=== PATIENT | male | born 1950 | race Caucasian/White ===

== ENCOUNTER 2020-01-11 07:44 | Outpatient (CLI) | payer MEDICARE, SELFPAY ==
--- NOTE | 2020-01-20 02:50 | SLEEP_ITS ---
Split-Night Sleep Study DATE OF STUDY: 01/11/2020 ORDERING PHYSICIAN: Chu Gómez M.D. REASON FOR THE STUDY: Hypersomnia, hypertension, pulmonary hypertension. HISTORY: This patient is a 69-year-old male, 70 inches tall, weighing 200 pounds with a body mass index of 28.7. The patient does not have a family history of sleep apnea. He rarely awakens from sleep short of breath. He does not have any problems with heartburn, belching, or coughing at night. He occasionally snores loudly enough that others complain about it. He occasionally has trouble sleeping with a cold. He does not wake up gasping for breath at night. On occasion, his tells him that he has abnormal breathing at night. He does not sweat excessively at night. He rarely notices his heart pounding or beating irregularly at night. He occasionally falls asleep during the day, occasionally involuntarily. He never falls asleep while driving or with physical effort. He does not have loss of muscle tone with strong emotion nor does he have difficulty with daytime functioning due to excessive sleepiness. He does not feel paralyzed on falling asleep nor does he have vivid dreamlike scenes upon awakening or falling asleep. He is never afraid to go to sleep. He does not have nightmares. He does not remember dreams. He occasionally has racing thoughts, feelings of sadness, depression and anxiety. He occasionally has muscular tension and notices parts of his body jerking. He does not kick at night. He occasionally has crawly, achy feelings in his legs, occasionally has leg pain during the night and occasionally has morning jaw pain. He occasionally grinds his teeth during sleep. He is rarely bothered by pain during the day, never is awakened by pain at night. He occasionally wakes up in the morning feeling stiff with sore achy muscles and pain in his neck and spine. He has stomach problems, fatigue, and tremors. Normal bedtime is 9 p.m. to 9:30 p.m., taking 15 minutes to fall asleep typically waking 3 times at night for 5 minutes to go to the bathroom. He wakes in the morning between 4 and 5 am. Weekend schedule is the same. He estimates 7 hours of sleep at night. He occasionally takes a nap. A short nap may be refreshing. He feels better in the mornings and other times a day. MEDICAL COMORBIDITIES: Hypertension, coronary artery disease with a stent, seasonal allergies, asthma, heartburn, kidney stones, hyperlipidemia, pulmonary hypertension, nonrheumatic mitral valve regurgitation. MEDICATIONS: 1. Alprazolam 0.5 mg t.i.d. 2. Aspirin 81 mg a day. 3. Atorvastatin 40 mg a day. 4. Brilinta 90 mg q.12 hours. 5. Hydrochlorothiazide 25 mg half tablet daily. 6. Metoprolol-XL 100 mg daily. 7. Nitroglycerin 0.4 mg p.r.n. chest pain. 8. Potassium citrate 1 daily. 9. Pulmicort Flexhaler 180 mcg 2 puffs b.i.d. HABITS: Quit tobacco 7 years ago. Caffeine, 3 cups of coffee a day. No alcohol. DESCRIPTION OF THE STUDY: On the [place] Sleepiness Scale, the score is 6. This was conducted as a split-night study in the lab using the [employer] multiple channel system including EOG, EEG, submental EMG, EKG, nasal and oral airflow using thermistors and nasal pressure sensors, chest and abdominal belts, body position data and pulse oximetry. The study was scored using CMS guidelines. During the baseline portion 180.3 minutes of recording time occurred. 127 minutes of sleep occurred. Sleep efficiency was 70.4%. Sleep latency was 28 minutes, on the long side. REM latency was short at 58 minute. There were 7 awakenings. The patient spent 25.3 minutes awake after sleep onset. Sleep architecture showed 5.9% stage 1 sleep, 81.1% stage 2 sleep, no stage 3 sleep, and 13% stage REM. The patient did not have
== END 2020-01-11 07:45 | disposition home or self-care (01) ==
LOC: ANHCSM 07:45
PROVIDERS: PCP Family Medicine Adolescent Medicine; Visit Provider Internal Medicine Cardiovascular Disease
DX: G47.31 Primary central sleep apnea (principal); G47.10 Hypersomnia, unspecified; I25.10 Atherosclerotic heart disease of native coronary artery without angina pectoris; I10 Essential (primary) hypertension; I27.20 Pulmonary hypertension, unspecified; N20.0 Calculus of kidney; J45.909 Unspecified asthma, uncomplicated; F41.9 Anxiety disorder, unspecified; K21.9 Gastro-esophageal reflux disease without esophagitis
CPT/HCPCS: 95811

== ENCOUNTER 2020-01-24 14:39 | Outpatient (CLI) | payer MEDICARE, SELFPAY ==
--- NOTE | 2020-02-05 16:39 | SLEEP_ITS ---
BiPAP titration. DATE OF STUDY: 01/24/2020 ORDERING PHYSICIAN: Chu Gómez M.D. REASON FOR THIS STUDY: Prior sleep study, 01/11/2020 showing a split night protocol with evidence of severe central sleep apnea, G47.31 with an apnea-hypopnea index of 51, insufficiently titrated. HISTORY: This patient is a 69-year-old male, 70 inches tall, weighing 200 pounds with a body mass index of 28.7. On January 11, 2020, his split night study showed evidence of severe sleep-disordered breathing with an AHI of 51, primarily due to central apneas. He was titrated, but only reached 10/6 as far as BiPAP. He needed a higher pressure. He did not sleep at all until he was on a CPAP of 9 cm. The patient is now returning to complete the titration. MEDICAL COMORBIDITIES: Hypertension, coronary artery disease with a stent, seasonal allergies, asthma, heartburn, kidney stones, hyperlipidemia, pulmonary hypertension, nonrheumatic mitral valve regurgitation. MEDICATIONS: 1. Alprazolam. 2. Aspirin. 3. Atorvastatin. 4. Brilinta. 5. Hydrochlorothiazide. 6. Metoprolol-XL. 7. Nitroglycerin sublingual. 8. Potassium citrate. 9. Pulmicort Flexhaler. HABITS: Quit tobacco 7 years ago. Caffeine, 3 cups of coffee a day. No alcohol. DESCRIPTION OF THE STUDY: On the [place] Sleepiness Scale, the score is 6. This was conducted as a full night BiPAP titration using the [employer] multiple channel system including EOG, EEG, submental EMG, EKG, nasal and oral airflow using thermistors and nasal pressure sensors, chest and abdominal belts, body position data and pulse oximetry. This study was scored using CMS guidelines. The duration was 375.4 minutes. Sleep time was 229.5 minutes. Sleep efficiency was 61.1%. Sleep latency was 31.2 minutes, which is prolonged. REM latency was 115.5 minutes. He had 13 awakenings. The patient spent exactly 1/3rd of the study awake after sleep onset 144.7 minutes. Sleep architecture showed 4.1% stage 1 sleep, 46.6% stage 2 sleep, no stage 3 sleep and 16% stage REM. The patient spent only 1.6% of this study supine. The remainder was non-supine. He had 2 good solid REM episodes. Sleep at the beginning of the study was a bit fragmented. The apnea-hypopnea index was 11.8. The obstructive index is 8.1 and the central index is 3.7. The lowest desaturation is 86%. The patient spent 1.8 minutes below 88%, which was 0.5% of the study. He had 42 desaturations of 4% or greater for an index of 6.7. The mean saturation was 96%. AROUSALS: 28 arousals for an index of 4.5. He had 4 apneas for an index of 0.6, 1 hypopnea for an index of 0.2, 23 spontaneous for an index of 3.7. LIMB MOVEMENTS: No limb movements on this study. EKG: Sinus bradycardia mean heart rate 46.5. During this titration, the patient wore a medium Wendy View full face mask. He started at 13/9 cm of water pressure with heated humidity was titrated up to 17/13. The apnea-hypopnea index remained elevated between 67 and 82 extremely high. The patient was then switched to ASV. The optimal pressure appears to be ASV pressure of 8 of EPAP, minimal pressure support of 3 cm and maximal pressure support of 15 cm. At this setting, the patient spent 32 minutes in bed without REM. The apnea-hypopnea index was 0. The sleep efficiency was 100%. At the next higher level, EPAP 9, minimal pressure support of 2 and maximal pressure support of 15. The apnea-hypopnea index was still 0, but the sleep efficiency was much lower. However, he did have 37 minutes of REM. IMPRESSION: 1. This BiPAP ASV titration shows an optimum pressure of ASV, 9 EPAP, 3 cm PS minimum, and 15 cm CA maximum. At this setting, the sleep efficiency was low at 43%. However, the patient did have 37
== END 2020-01-24 14:40 | disposition home or self-care (01) ==
LOC: ANHCSM 14:40
PROVIDERS: PCP Family Medicine Adolescent Medicine; Visit Provider Internal Medicine Cardiovascular Disease
DX: G47.31 Primary central sleep apnea (principal)
CPT/HCPCS: 95811

== ENCOUNTER → 2021-01-20 03:07 | Outpatient (CLI) | payer MEDICARE, SELFPAY ==
[2021-01-20 21:05] LABS: SARS-CoV-2 RNA PCR Negative
== END ==
PROVIDERS: PCP Family Medicine Adolescent Medicine; Visit Provider Internal Medicine Cardiovascular Disease
DX: Z01.812 Encounter for preprocedural laboratory examination (principal); Z20.822 Contact with and (suspected) exposure to COVID-19
CPT/HCPCS: C9803; U0003; U0005

== ENCOUNTER 2021-01-23 00:53 | Day surgery (SDC) | payer MEDICARE, SELFPAY ==
[2021-01-22 10:55] VITALS: BMI 29.5
[2021-01-23] VITALS (8 sets, daily range): BP systolic 104–130; BP diastolic 68–99; PULSE 47–55; RESP 10–19; TEMP 36.2–36.5; O2SAT 98–100; BMI 28.8
[2021-01-23 07:36] LABS: Basophils Absolute Auto 0.1 K/mm3 (0.0-0.1); Basophils Percent Auto 0.9 % (0.2-1.2); Eosinophils Absolute Auto 0.1 K/mm3 (0-0.3); Eosinophils Percent Auto 1.5 % (0-4.4); Hematocrit 47.7 % (42.0-52.0); Hemoglobin 16.1 g/dL (14.0-18.0); Immature Granulocyte Absolute 0.07 K/mm3 (0.00-0.031); Immature Granulocyte Percent A 1.1 % (0-0.5); Lymphocytes Absolute Auto 1.25 K/mm3 (0.9-3.2); Lymphocytes Percent Auto 18.8 % (18.3-44.2); Mean Corpuscular HGB Conc 33.8 g/dl (32-36); Mean Corpuscular Hemoglobin 33.8 pg (26-34); Mean Platelet Volume 9.6 fl (7.4-10.4); Monocytes Absolute Auto 0.7 K/mm3 (0.1-0.6); Monocytes Percent Auto 10.8 % (2.6-8.5); Neutrophils Absolute Auto 4.5 K/mm3 (1.3-6.7); Neutrophils Percent Auto 66.9 % (45.5-73.1); Platelet Count Result 162 k/mm3 (150-375); Red Blood Count 4.77 M/mm3 (4.6-6.20); Red Cell Distribution Width 12.8 % (11.5-14.5); White Blood Count 6.7 K/mm3 (4.5-10.0)
[2021-01-23 07:47] LABS: INR 1.1; Prothrombin Time 14.9 Seconds (11.1-14.7)
[2021-01-23 08:11] LABS: Anion Gap 5 mmol/L (8-16); Blood Urea Nitrogen 15 mg/dL (9-20); Calcium 9.2 mg/dL (8.4-10.2); Carbon Dioxide 28 mmol/L (22-30); Chloride 107 mmol/L (98-107); Estimated CRCL calculation 68 ml/min; Estimated Glomerular Filt Rate > 60; Glucose 94 mg/dL (75-110); Potassium 4.3 mmol/L (3.4-5.0); Sodium 140 mmol/L (137-145)
--- NOTE | 2021-01-23 10:09 | WPDHPUPDATE1 ---
History and Physical Update Update Date/Time: 01/23/21 0900am History and Physical has been reviewed, including an updated exam of the patient. There are NO changes in the patient's condition. Risks, benefits, and alternatives have been discussed and questions answered. Patient agrees to proceed with procedure.
--- NOTE | 2021-01-23 10:09 | WPDMODSED ---
Moderate Sedation Note-Pt Data Patient Data Allergies Allergy/AdvReac Type Severity Reaction Status Date / Time ciprofloxacin Allergy Intermediate ITCHEY Verified 04/19/20 08:41 SKIN, GI UPSET budesonide [From Symbicort] Allergy Hypertensio Verified 04/19/20 08:41 n formoterol [From Symbicort] Allergy Hypertensio Verified 04/19/20 08:41 n propranolol [From Inderal LA] Allergy Confusion Verified 04/19/20 08:41 Quinazolinones Allergy Rash Verified 04/19/20 08:41 Home Medications Medication Instructions Recorded Confirmed Type Pulmicort Flexhaler 2 inh INHALATION QAM 09/13/19 01/22/21 History albuterol sulfate [Ventolin HFA] 1 puff INHALATION QID PRN 09/13/19 01/22/21 History alprazolam [Xanax] 0.5 mg PO BID 09/13/19 01/23/21 History aspirin 81 mg PO DAILY 09/13/19 01/23/21 History potassium citrate [Urocit-K 10] 1,080 mg PO ONCE 09/13/19 01/22/21 History atorvastatin 40 mg PO DAILY #30 tablet 09/14/19 01/22/21 Rx nitroglycerin [Nitrostat] 0.4 mg SUBLINGUAL Q5MIN PRN #25 09/14/19 01/22/21 Rx tablet clopidogrel 75 mg PO DAILY 01/22/21 01/23/21 History fluticasone propionate [Flonase] 1 spray INTRANASAL DAILY 01/22/21 01/22/21 History furosemide 20 mg PO DAILY 01/22/21 01/22/21 History metoprolol succinate 25 mg PO DAILY 01/22/21 01/22/21 History Current Medications: Active Medications Sodium Chloride (Normal Saline Iv) 500 mls @ 100 mls/hr IV CONT .Q5H NEIL Sedation/Anesthesia: No previous sedation/anesthesia problems (including family history). [facility] Past Medical History Medical History Central sleep apnea Coronary artery disease H/O renal calculi with removal 2012 Hypertension Injury of right hand 2006, severe injury Pulmonary hypertension Rhinitis Unspecified asthma Surgical History Surgical History H/O left inguinal hernia repair 2011 S/P appy 196 S/P left knee arthroscopy 2009 Stented coronary artery proximal LAD Sep 14, 2019 Family History Family History Mother , age 87, good health No problems noted. Social History Social History Smoking status: Former smoker Tobacco type: cigarettes Second hand tobacco smoke exposure: Yes Smoking end date: 11/08/11 Alcohol intake: never Substance use: never Substance use type: does not use Living arrangements: with family Gender identity (if verbalized by the patient): Male Spiritual care concerns: No Agree to blood products: No Mod Sed Physical Exam Physical Exam Pre Procedural Exam: Normal: Appearance, Eyes, Ears, Nose, Neck, Throat, Airway, Lungs, Heart Size, Heart Rate, Heart Rhythm, Neuro Exam, Abdomen, Liver, Kidneys, Spleen, Breasts, Genitalia, Extremities and Skin Hours since solid foods: 8 Hours since liquid intake: 8 Internal Medicine - PN: Obj Da Vital Signs Vital Signs: Vital Signs - 24 hr 01/23/21 07:27 Temperature 36.2 C L Pulse Rate 48 L Respiratory Rate 10 L Blood Pressure 130/87 Pulse Oximetry 100 Meds/Results Medications: Active Medications Generic Name Dose Route Start Last Admin Trade Name Freq PRN Reason Stop Dose Admin Sodium Chloride 500 mls @ 100 mls/hr 01/22/21 11:05 Normal Saline Iv IV CONT .Q5H NEIL Labs CBC & Chem 7: 01/23/21 07:16 01/23/21 07:47 Labs: Laboratory Results - last 24 hr 01/23/21 01/23/21 01/23/21 07:16 07:16 07:47 WBC 6.7 RBC 4.77 Hgb 16.1 Hct 47.7 MCV 100.0 MCH 33.8 MCHC 33.8 RDW 12.8 Plt Count 162 MPV 9.6 Immature Gran % (Auto) 1.1 H Neut % (Auto) 66.9 Lymph % (Auto) 18.8 [place] % (Auto) 10.8 H Eos % (Auto) 1.5 Baso % (Auto) 0.9 Lymph # (Auto) 1.25 [place] # (Auto) 0.7 H Eos # (Auto) 0.1 Baso
--- NOTE | 2021-01-23 10:10 | WPDCARDPROC ---
Cardiac Cath Procedure Note Date of procedure:: 01/23/21 Performing physician:: Brady Becerra MD Date of service 01/23/2021 Indication:: exertion shortness of breath Brief clinical history:: 70-year-old patient who mid LAD stent, sleep apnea, COPD, hyper lipidemia who was referred for right and left heart catheterization because of progressive dyspnea on exertion. Procedure Procedure performed:: 1-Moderate sedation that started at 9:32 a.m.and ended at 10:05 a.m. with a total duration 33 minutesusing 4mg of Versed and 75mcg fentanyl. The registered nurse was melinda lyons. 2-Selective left and right coronary angiogram. 3-Left heart catheterization with measurement of LVEDP and measurement of gradient across aortic valve. 4-Heart catheterization measurement of oxygen saturations, pressures. 5-Right common femoral arterial angiogram. 6-Deployment of 6 [place] Angio-Seal. Sedation/Medication given:: Moderate sedation. Access site:: Right common femoral artery. Estimated blood loss:: 10cc Procedure note:: After informed consent patient was brought in to systems testing laboratory technician with the was draped and prepped in usual manner. Moderate sedation was given and the right groin was infiltrated using 1% lidocaine. Five [place] sheath was obtained using micropuncture needle and the modified Seldinger technique. Huong 7 [place] sheath was inserted in the right common femoral vein using micropuncture needle and modified Seldinger technique. Right heart catheterization was advancement of [place] catheter in the right right atrium, right ventricle, pulmonary artery and wedge pressure measurement with measurement of oxygen saturation. Selective left coronary angiogram was done using JL4 catheter with the tip of the catheter placed in the left main coronary artery. Selective right coronary angiogram was done using JR4 catheter with the tip of the catheter placed to the right coronary artery. After that 5 [place] pigtail catheter was advanced across the aortic valve into the left ventricle with measurement of LVEDP and measurement of gradient across aortic valve. Right common femoral arterial angiogram was done. Findings:: 1- left coronary artery is a large artery that divides into large LAD, large circumflex artery. Left main Has minimal calcification and minimal irregularities. 2- left anterior descending artery is a large artery that runs and wraps around the apex. has diffuse minimal calcification proximally and then proximally diffuse 30% stenosis. The stent in the mid segment is patent without any restenosis. large diagonal 1 branch that has diffuse 30% stenosis with calcification. 3- leftcircumflex artery is a large artery. It has minimal irregularities and minimal calcification proximally. OM1 is large and has proximal 20%. 4- right coronary artery is Large artery and has minimal irregularities 5- LVEDP was 15 mm Hg and no gradient across aortic valve. 6- opening arterial pressure was 140/80and closing pressure was 120/70 7- right femoral artery angiogram shows no significant disease in the right common femoral artery. 8- right heart catheterization findings: - right atrial pressure was 10 - right ventricular pressure was 45/12 - pulmonary artery was 45/18 with a mean of 25 - pulmonary artery capillary wedge pressure was 17 - pulmonary artery oxygen saturation 62% - right atrial oxygen saturation 69.5% - Juan Antonio cardiac output 4.76 and the index was 2.27 - we were unable to obtain thermodilution cardiac outputs due to technical issues in the systems testing laboratory technician. - pulmonary vascular resistance 2.56 wood units - systemic vascular resistance 16.4 wood units Conclusion:: - patent stent in the LAD. - nonocclusive CAD. - Mild pulmonary hypertension. normal LVEDP. - Assessment and Plan Additional Plan - continue aggressive risk factor modification for CAD. - look for other reasons for the shortness of breath like COPD.
--- NOTE | 2021-01-23 13:33 | SUR.PHASEII ---
Pt. and spouse given discharge education following cardiac cath. procedure. Pt. and spouse verbalize understanding of discharge education. R groin site dressing remains clean, dry, and intact upon discharge. Pt. escorted to vehicle via wheelchair. No change in pt. condition upon departure.
== END 2021-01-23 13:35 | disposition home or self-care (01) ==
PROVIDERS: PCP Family Medicine Adolescent Medicine; Visit Provider Internal Medicine Cardiovascular Disease
PROC: 4A023N8 Measurement of Cardiac Sampling and Pressure, Bilateral, Percutaneous Approach (ICD-10-PCS; CPT 93453; principal; 2021-01-23 08:45)
DX: I25.10 Atherosclerotic heart disease of native coronary artery without angina pectoris (principal); I27.20 Pulmonary hypertension, unspecified; Z95.5 Presence of coronary angioplasty implant and graft; R06.02 Shortness of breath; J44.9 Chronic obstructive pulmonary disease, unspecified; G47.30 Sleep apnea, unspecified; E78.5 Hyperlipidemia, unspecified; Z79.82 Long term (current) use of aspirin; Z79.51 Long term (current) use of inhaled steroids; Z87.891 Personal history of nicotine dependence
CPT/HCPCS: 36415; 80048; 85025; 85610; 93460; C1760; C1887; C1894; G0269; J1644; J2250; J3010; J7040

== ENCOUNTER → 2023-07-20 09:48 | Outpatient (CLI) | payer MEDICARE, SELFPAY ==
--- NOTE | ~2023-07-20 | XR_ITS ---
EXAM: XR abdomen/kub 1V DATE: 07/20/2023 10:36 HISTORY: Personal history of urinary calculi . COMPARISON: None available. FINDINGS: Clear lung bases. Normal bowel gas pattern. No organomegaly. Irregular calcifications proj ect over the lateral renal shadows. New rounded calcifications projecting over the right upper quadra nt, may reflect gallstones or renal stones. Surgical kyle over the left inguinal region. Atheroscl erotic calcifications. Degenerative changes in the lumbar spine. Stable pelvic phleboliths. IMPRESSION: New right upper quadrant calcifications, may represent new gallstones or new renal stones . Otherwise stable bilateral nephrolithiasis. Reviewed, dictated and finalized at location K. IMPRESSION: New right upper quadrant calcifications, may represent new gallston es or new renal stones. Otherwise stable bilateral nephrolithiasis.
== END ==
PROVIDERS: PCP Urology; Visit Provider Urology
DX: Z87.442 Personal history of urinary calculi (principal)
CPT/HCPCS: 74018

== ENCOUNTER → 2023-07-27 08:35 | Outpatient (CLI) | payer MEDICARE, SELFPAY ==
--- NOTE | ~2023-07-27 | CT_ITS ---
EXAMINATION: CT abdomen pelvis wo con DATE: 07/27/2023 08:48 INDICATION: Calculus of the kidney TECHNIQUE: Computed tomography (CT) of the abdomen and pelvis was performed without intravenous contr ast. The dose-length product (DLP) was 430.36 mGy-cm. Automated exposure control and iterative recons truction technique were employed. COMPARISON: 02/08/2013 FINDINGS: The lung bases are clear. The heart size is normal. Cysts of the liver measure up to 8 mm i n the left hepatic lobe. Punctate calcifications in an otherwise normal spleen likely represent heale d granulomatous disease. The pancreas, gallbladder, and adrenal glands are normal. There are five non obstructing stones of the right kidney. The largest measures 1.6 cm in the upper pole. There is a 2.1 cm cyst of the right kidney. There are five nonobstructing stones of the left kidney. The largest me asures 1.0 cm in the lower pole. There are no stones in the ureters or bladder. No hydronephrosis or hydroureter. There is calcified atherosclerosis of the aorta and many of the other arteries. No patho logically enlarged abdominal or pelvic lymph nodes are identified. There are changes of left inguinal hernia repair. There is moderate lumbar spondylosis. IMPRESSION: 1. Bilateral nonobstructing nephrolithiasis. Reviewed, dictated and finalized at location L.
== END ==
PROVIDERS: PCP Family Medicine Adolescent Medicine; Visit Provider Urology
DX: N20.0 Calculus of kidney (principal)
CPT/HCPCS: 74176

== ENCOUNTER 2023-08-04 08:12 | Outpatient (CLI) | payer MEDICARE, SELFPAY ==
--- NOTE | 2023-08-04 08:20 | ECG_ITS ---
Measurements Intervals [place] Rate: 54 P: 45 [place]: 139 QRS: 6 QRSD: 90 T: -1 QT: 414 QTc: 396 Interpretive Statements SINUS BRADYCARDIA BORDERLINE ST-T WAVE ABNORMALITY- INFERIOR LEADS BORDERLINE ECG COMPARED TO ECG 09/14/2019 12:26:33 NO SIGNIFICANT CHANGES Electronically Signed On 08-04-2023 8:42:59 CDT by Jed Bridges D.O.
[2023-08-04 08:53] LABS: INR 1.1; Partial Thromboplastin Time 27.3 SECONDS (22.3-36.8); Prothrombin Time 14.1 Seconds (11.1-14.7)
[2023-08-04 08:54] LABS: Anion Gap 8 mmol/L (8-16); Blood Urea Nitrogen 10 mg/dL (9-20); Calcium 9.2 mg/dL (8.4-10.2); Carbon Dioxide 30 mmol/L (22-30); Chloride 102 mmol/L (98-107); Estimated Glomerular Filt Rate > 60; Glucose 98 mg/dL (65-110); Potassium 4.7 mmol/L (3.4-5.0); Sodium 140 mmol/L (137-145)
== END 2023-08-04 08:13 | disposition home or self-care (01) ==
LOC: ANHSURGERY 08:16
PROVIDERS: Anesthesiology; PCP Family Medicine Adolescent Medicine; Visit Provider Urology
DX: N20.0 Calculus of kidney (principal); E78.00 Pure hypercholesterolemia, unspecified; I10 Essential (primary) hypertension; Z01.818 Encounter for other preprocedural examination
CPT/HCPCS: 36415; 80048; 85610; 85730; 87086; 93005

== ENCOUNTER 2023-08-13 00:59 | Day surgery (SDC) | payer MEDICARE, SELFPAY ==
--- NOTE | 2023-08-02 15:35 | PC.NURSE ---
Addendum entered by Sona Bang RN 08/02/23 15:47: PT STATES HOLD ASPIRIN PER DR ROLLE 7 DAYS PRE OP.LAST DOSE 08/05/23 Original Note: Report to the Outpatient Waiting Room, entrance under the green pavilion located off [facility], at time _0800 on date __08/13/23 . Planned Procedure Time: ___1000 . Time changes happen often and if your time is changed the preop area will call you the afternoon before. - You and your visitor will be asked to self-screen and do not enter if you have any COVID symptoms. - A mask is optional within the hospital at this time. Patients may have clear liquids (water, carbonated beverages, clear teas, apple juice) until 3 hours prior to surgery with a maximum of 20 ounces. - No food from midnight until time of surgery - Infants may have breast milk until 4 hours before surgery, formula 6 hours prior to surgery. - Children will be allowed to drink immediately following surgery. If applicable, please bring a bottle or sippy cup to assist with drinking. Juice, water, soda, and popsicles are readily available. For infants on formula, please bring formula the day of surgery. Pacifiers are allowed. Take the following medications with a SIP of water the morning of surgery: ___ALPRAZOLAM,INHALER DO NOT STOP ANY OF YOUR OTHER PRESCRIPTION MEDICATIONS PRIOR TO SURGERY ?EXCEPT THE FOLLOWING Medications to discontinue per physician __PT STATES HOLD ASPIRIN 7 DAYS PRE OP.LAST DOSE 08/05/23 Please no make-up, nail maltese, hairspray, perfume, deodorant, or body powder the day of surgery. No jewelry (including any body piercings) or valuables the day of surgery, leave them at home. Please take a shower or bath the night before, or the morning of, surgery with an antibacterial soap. Wear comfortable, loose fitting clothing. Children are encouraged to wear pajamas. - Jewelry must be removed prior to entering the operating room. Rings and piercings that are not removed may be cut off. - The hospital will not accept responsibility for valuables. - Please leave all valuables, including medications, at home the day of surgery. If you are going home after surgery, a licensed patrol driver must drive you home. - NO public transportation without another adult if you receive anesthesia. - We recommend that an adult stay with you for 24 hours following discharge. - We also recommend that you do not drive, make important decision, drink alcoholic beverages, or take any drugs that were not prescribed by your health care provider for at least 24 hours after your discharge time. For Pediatric surgeries, we recommend two adults accompany the child home. Follow any additional instructions given to you from your surgeon. If you or anyone in your household have experienced Covid symptoms in the past week, please notify your surgeon or the nurse liaison at the phone number below for possible testing. Telephone instructions given to ___PATIENT and asked if any additional questions and then verbalized understanding. Patient advised to call surgeon office or pre surgery nurse liaison [phone] if any additional questions.
[2023-08-02 15:50] VITALS: BMI 27.9
[2023-08-13] VITALS (7 sets, daily range): BP systolic 117–142; BP diastolic 74–83; PULSE 52–74; RESP 12–18; TEMP 36.3–37; O2SAT 99–100
--- NOTE | ~2023-08-13 | XR_ITS ---
Supine and upright views of the abdomen Clinical history: Lithotripsy COMPARISON: 07/20/2023 Findings: Bowel gas pattern is nonspecific. No evidence for obstruction or free air. Large right teresa l stones are stable from prior exam. Multiple smaller right renal stones are present, also essentiall y unchanged. Osseous structures are intact. Impression: Bilateral nephrolithiasis, essentially unchanged from prior exam. Reviewed, dictated and finalized at location M. Impression: Bilateral nephrolithiasis, essentially unchanged from prior exam.
--- NOTE | 2023-08-13 07:19 | WPDHPUPDATE1 ---
History and Physical Update Update Date/Time: 08/13/23 07:19 History and Physical has been reviewed, including an updated exam of the patient. There are NO changes in the patient's condition. Risks, benefits, and alternatives have been discussed and questions answered. Patient agrees to proceed with procedure.
--- NOTE | 2023-08-13 08:10 | WPDANESEPPF ---
Anes - Initial Pre Proc Eval Procedure: Operation Date: 08/13/23 10:00 Proposed Procedures p Right Renal Extracorporeal Shock Wave Lithotripsy - Isiah Nieto MD Date/Time: 08/13/23 08:10 Surgeon: Isiah Nieto MD Pre Op Diagnosis: Right Kidney Stone Patient Data Age: 72 Gender: M Height: 1.78 m Weight: 88.45 kg Allergies Allergy/AdvReac Type Severity Reaction Status Date / Time ciprofloxacin Allergy Intermediate ITCHEY Verified 08/02/23 15:22 SKIN, GI UPSET budesonide [From Symbicort] Allergy Hypertensio Verified 08/02/23 15:22 n formoterol [From Symbicort] Allergy Hypertensio Verified 08/02/23 15:22 n propranolol [From Inderal LA] Allergy Confusion Verified 08/02/23 15:22 Quinazolinones Allergy Rash Verified 08/02/23 15:22 primidone AdvReac Intermediate Confusion Verified 08/02/23 15:22 Home Medications Medication Instructions Recorded Confirmed Type aspirin 81 mg chewable tablet 81 mg PO DAILY 09/13/19 08/02/23 History potassium citrate 10 mEq (1,080 2,160 mg PO ONCE 09/13/19 08/02/23 History mg) tablet,extended release (Urocit-K 10) nitroglycerin 0.4 mg sublingual 0.4 mg sublingual Q5MIN PRN Chest 09/14/19 08/02/23 Rx tablet (Nitrostat) Pain #25 tabs fluticasone propionate 50 1 spray intranasal DAILY 01/22/21 08/02/23 History mcg/actuation nasal spray,suspension albuterol sulfate 90 mcg/actuation 2 puff inhalation QID PRN 11/12/22 08/02/23 Rx aerosol inhaler (Ventolin HFA) Shortness Of Breath #8.5 grams atorvastatin 40 mg tablet 40 mg PO DAILY #90 tabs 11/12/22 08/02/23 Rx budesonide 180 mcg/actuation 2 inh inhalation BID #1 ea 11/12/22 08/02/23 Rx breath activated powder inhaler (Pulmicort Flexhaler) furosemide 40 mg tablet 40 mg PO QAM #90 tabs 11/12/22 08/02/23 Rx alprazolam 0.5 mg tablet (Xanax) 0.5 mg PO BID #180 tabs 05/12/23 08/02/23 Rx amoxicillin 500 mg capsule 500 mg PO Q8H #6 caps 08/03/23 Rx Patient hx anesthesia problems: none Family hx anesthesia problems: none Results Review: All pre-operative results and documents have been reviewed as part of the pre-operative evaluation. [facility] Past Medical History Medical History Central sleep apnea Coronary artery disease H/O renal calculi with removal 2012 Hypertension Injury of right hand 2006, severe injury Normal colonoscopy 2015 Pulmonary hypertension Rhinitis Unspecified asthma Surgical History Surgical History H/O left inguinal hernia repair 2011 S/P appy 1960 S/P left knee arthroscopy 2009 Stented coronary artery proximal LAD Sep 14, 2019 Family History Family History Mother , age 87, good health No problems noted. Grandparent Acute myocardial infarction Heart disease Grandparent Acute myocardial infarction Heart disease Other Asthma Social History Social History Smoking packs per day: 1 Smoking cigarettes per day: 20.0 Years smoked: 20 Smoking pack-years: 20.00 Smoking status: Former smoker Tobacco type: cigarettes Second hand tobacco smoke exposure: Yes Smoking end date: 11/08/11 Alcohol intake: never Substance use: never Substance use type: does not use Lack of Transportation: No Lack of Food: Never True Current Housing: I Have Housing Concerned About Future Housing: No Difficulty Paying Gas/Electric Bills: No Difficulty Paying for Meds: No Currently Unemployed: No Education: Trade/Vocational Certificate Difficulty w/ Childcare or Family Care: No Living arrangements: with family Occupation/Education: retired Gender identity (if verbalized by the patient): Male Spiritual care concerns: No Agree to blood products: Yes Anes - Eval Final PreProc
[2023-08-13] MEDS: ceFAZolin 2 GM/D5W 50 ML 2 GM/50 ML BAG IVPB (09:40)
--- NOTE | 2023-08-13 10:12 | W.PM.PROC2 ---
Procedure Note - Detailed Date of Procedure 08/13/23 Pre-op Diagnosis Right Kidney Stones Post-op Diagnosis Same Procedure Performed Right ESWL Surgeon Isiah Nieto MD Anesthesia General Description of Procedure The patient was brought to the operative suite where he was placed in the supine position on the Dornier lithotripsy table. The focal point of the lithotripter was placed first at a 8-9mm right upper pole calculus calculus. A total of 2500 shocks were delivered at a power setting of 4. There was decent fragmentation of that stone but not until late in the procedure so opted not to treat the 2nd stone in kidney. The patient tolerated the procedure well and was taken to the recovery room in good condition. Drains No Packing No Pathology None sent Complications No immediate complications Disposition PACU
[2023-08-13] MEDS: LACTATED RINGERS 1,000 ML 30 ML IV CONT (10:19)
== END 2023-08-13 11:45 | disposition home or self-care (01) ==
PROVIDERS: PCP Family Medicine Adolescent Medicine; Visit Provider Urology
PROC: (CPT 50590; principal; 2023-08-13 10:00)
DX: N20.0 Calculus of kidney (principal); I10 Essential (primary) hypertension; E78.00 Pure hypercholesterolemia, unspecified; G47.31 Primary central sleep apnea; J45.909 Unspecified asthma, uncomplicated; N41.1 Chronic prostatitis; I25.10 Atherosclerotic heart disease of native coronary artery without angina pectoris; N40.1 Benign prostatic hyperplasia with lower urinary tract symptoms; Z87.442 Personal history of urinary calculi; Z87.891 Personal history of nicotine dependence; Z79.82 Long term (current) use of aspirin; Z79.51 Long term (current) use of inhaled steroids
CPT/HCPCS: 50590; 74018; J0690; J1100; J2405; J2704; J7120

== ENCOUNTER 2023-08-25 07:01 | Outpatient (CLI) | payer MEDICARE, SELFPAY ==
--- NOTE | ~2023-08-25 | XR_ITS ---
Supine and upright views of the abdomen Clinical history: Renal stone COMPARISON: 08/13/2023 Findings: Bowel gas pattern is nonspecific. No evidence for obstruction or free air. Multiple of teresa l stones are essentially stable from prior exam. 17 mm right mid to lower pole renal stone is similar to prior exam. Previously seen stone at the right renal pelvis region is apparently decreased in siz e, with a 8 mm nodule stone present. No definite ureteral stones seen. Osseous structures are intact. Impression: Bilateral nephrolithiasis, as detailed above. Largest stone seen previously in the right renal pelvis is decreased, with smaller residual stone present. Reviewed, dictated and finalized at location . Impression: Bilateral nephrolithiasis, as detailed above. Largest stone seen previously in the right renal pelvis is decreased, with smaller residual stone present.
== END 2023-08-25 07:02 | disposition home or self-care (01) ==
PROVIDERS: PCP Family Medicine Adolescent Medicine; Visit Provider Urology
DX: N20.0 Calculus of kidney (principal)
CPT/HCPCS: 74018

== ENCOUNTER 2023-08-30 12:57 | Outpatient (CLI) | payer MEDICARE, SELFPAY ==
[2023-08-30 13:28] LABS: Partial Thromboplastin Time 26.4 SECONDS (22.3-36.8)
== END 2023-08-30 12:58 | disposition home or self-care (01) ==
LOC: ANHSURGERY 13:01
PROVIDERS: PCP Family Medicine Adolescent Medicine; Visit Provider Urology
DX: N20.0 Calculus of kidney (principal); Z01.818 Encounter for other preprocedural examination
CPT/HCPCS: 36415; 85610; 85730; 87086

== ENCOUNTER 2023-09-03 01:37 | Day surgery (SDC) | payer MEDICARE, SELFPAY ==
[2023-08-30 11:10] VITALS: BMI 26.9
--- NOTE | 2023-08-30 11:21 | PC.NURSE ---
PRE-OP INSTRUCTIONS, PLEASE READ CAREFULLY Report to the Outpatient Waiting Room, entrance under the green pavilion located off [facility], at time _0730_ on date _09/03/23_. Planned Procedure Time: _0930_. Time changes happen often and if your time is changed the preop area will call you the afternoon before. - You and your visitor will be asked to self-screen and do not enter if you have any COVID symptoms. - A mask is optional within the hospital at this time. Patients may have clear liquids (water, carbonated beverages, clear teas, apple juice) until 3 hours prior to surgery with a maximum of 20 ounces. - No food from midnight until time of surgery Take the following medications with a SIP of water the morning of surgery: _ALPRAZOLAM, PULMICORT INHALER - & ALBUTEROL INHALER, NITROGLYCERIN IF NEEDED_ DO NOT STOP ANY OF YOUR OTHER PRESCRIPTION MEDICATIONS PRIOR TO SURGERY ?EXCEPT THE FOLLOWING Medications to discontinue per physician _PT STATES STOPPING ASPIRIN 08/27/23, Date to take last dose Please no make-up, nail libyan, hairspray, perfume, deodorant, or body powder the day of surgery. No jewelry (including any body piercings) or valuables the day of surgery, leave them at home. Please take a shower or bath the night before, or the morning of, surgery with an antibacterial soap. Wear comfortable, loose fitting clothing. Children are encouraged to wear pajamas. - Jewelry must be removed prior to entering the operating room. Rings and piercings that are not removed may be cut off. - The hospital will not accept responsibility for valuables. - Please leave all valuables, including medications, at home the day of surgery. If you are going home after surgery, a licensed minibus driver must drive you home. - NO public transportation without another adult if you receive anesthesia. - We recommend that an adult stay with you for 24 hours following discharge. - We also recommend that you do not drive, make important decision, drink alcoholic beverages, or take any drugs that were not prescribed by your health care provider for at least 24 hours after your discharge time. Follow any additional instructions given to you from your surgeon. If you or anyone in your household have experienced Covid symptoms in the past week, please notify your surgeon or the nurse liaison at the phone number below for possible testing. Telephone instructions given to _PATIENT_and asked if any additional questions and then verbalized understanding. Patient advised to call surgeon office or pre surgery nurse liaison [phone] if any additional questions.
--- NOTE | 2023-09-01 10:07 | PM.HPGS ---
History of Present Illness History of Present Illness Consent: Risks, benefits, and alternatives have been discussed and questions answered. Patient agrees to proceed with procedure. Chief complaint: Rt kidney Stones Narrative: Stephane Blackburn is a 72 year old male A long history of recurrent urolithiasis who recently had lithotripsy for 2 fairly large stones in his right kidney. One of these fractured quite nicely but the other has, in part, remained intact. He presents for 2nd right ESWL. He is aware the risk including, but not limited to, adverse cardiopulmonary events, hematuria, need for additional procedures and perinephric hematoma. Review of Systems Review of Systems: All systems reviewed & are unremarkable except as noted in HPI and below PMFSH Past Medical History Medical History Central sleep apnea Coronary artery disease H/O renal calculi with removal 2012 Hypertension Injury of right hand 2006, severe injury Normal colonoscopy 2016 Pulmonary hypertension Rhinitis Unspecified asthma Surgical History Surgical History H/O left inguinal hernia repair 2011 S/P appy 1960 S/P left knee arthroscopy 2009 Stented coronary artery proximal LAD Sep 14, 2019 Family History Family History Mother , age 87, good health No problems noted. Grandparent Acute myocardial infarction Heart disease Grandparent Acute myocardial infarction Heart disease Other Asthma Social History Social History Smoking packs per day: 1 Smoking cigarettes per day: 20.0 Years smoked: 20 Smoking pack-years: 20.00 Smoking status: Former smoker Tobacco type: cigarettes Second hand tobacco smoke exposure: No Smoking end date: 11/08/11 Alcohol intake: never Substance use: never Substance use type: does not use Lack of Transportation: No Lack of Food: Never True Current Housing: I Have Housing Concerned About Future Housing: No Difficulty Paying Gas/Electric Bills: No Difficulty Paying for Meds: No Currently Unemployed: No Education: Trade/Vocational Certificate Difficulty w/ Childcare or Family Care: No Living arrangements: with family Occupation/Education: retired Gender identity (if verbalized by the patient): Male Spiritual care concerns: No Agree to blood products: Yes Meds Home Medications and Allergies Home Medications Medication Instructions Recorded Confirmed Type aspirin 81 mg chewable tablet 81 mg PO DAILY 09/13/19 08/30/23 History potassium citrate 10 mEq (1,080 2,160 mg PO ONCE 09/13/19 08/30/23 History mg) tablet,extended release (Urocit-K 10) nitroglycerin 0.4 mg sublingual 0.4 mg sublingual Q5MIN PRN Chest 09/14/19 08/30/23 Rx tablet (Nitrostat) Pain #25 tabs fluticasone propionate 50 1 spray intranasal DAILY 01/22/21 08/30/23 History mcg/actuation nasal spray,suspension albuterol sulfate 90 mcg/actuation 2 puff inhalation QID PRN 11/12/22 08/30/23 Rx aerosol inhaler (Ventolin HFA) Shortness Of Breath #8.5 grams atorvastatin 40 mg tablet 40 mg PO DAILY #90 tabs 11/12/22 08/30/23 Rx budesonide 180 mcg/actuation 2 inh inhalation BID #1 ea 11/12/22 08/30/23 Rx breath activated powder inhaler (Pulmicort Flexhaler) furosemide 40 mg tablet 40 mg PO QAM #90 tabs 11/12/22 08/30/23 Rx alprazolam 0.5 mg tablet (Xanax) 0.5 mg PO BID #180 tabs 05/12/23 08/30/23 Rx hydrocodone 5 mg-acetaminophen 325 1 - 2 tablet PO Q6H PRN pain #20 08/13/23 08/30/23 Rx mg tablet tabs Allergies Allergy/AdvReac Type Severity Reaction Status Date / Time ciprofloxacin Allergy Intermediate ITCHEY Verified 08/30/23 11:09 SKIN, GI UPSET budesonide [From Symbicort] Allergy Hypertensio Verified 08/30/23 11:09
[2023-09-03] VITALS (7 sets, daily range): BP systolic 132–145; BP diastolic 73–87; PULSE 52–82; RESP 12–18; TEMP 36.2–36.9; O2SAT 98–100
--- NOTE | ~2023-09-03 | XR_ITS ---
EXAMINATION: XR abdomen/kub 1V DATE: 09/03/2023 07:29 INDICATION: Kidney stone. TECHNIQUE: A supine view of the abdomen on 2 radiographs was obtained. COMPARISON: Abdomen radiographs 08/25/2023, CT abdomen and pelvis 07/27/2023 FINDINGS: There are no dilated loops of bowel. There are multiple stones in each kidney measuring up to 17 mm on the right. There are phleboliths in the pelvis. There are surgical clips from left inguin al hernia repair. IMPRESSION: 1. Bilateral kidney stones. Reviewed, dictated and finalized at location E. IMPRESSION: 1. Bilateral kidney stones.
--- NOTE | 2023-09-03 06:59 | WPDANESEPPF ---
Anes - Initial Pre Proc Eval Procedure: Operation Date: 09/03/23 09:30 Proposed Procedures p Right Extracorporeal Shock Wave Lithotripsy - Isiah Nieto MD Date/Time: 09/03/23 06:59 Surgeon: Isiah Nieto MD Pre Op Diagnosis: Rt kidney Stones Patient Data Age: 72 Gender: M Height: 1.78 m Weight: 85 kg Allergies Allergy/AdvReac Type Severity Reaction Status Date / Time ciprofloxacin Allergy Intermediate ITCHEY Verified 09/03/23 08:30 SKIN, GI UPSET budesonide [From Symbicort] Allergy Hypertensio Verified 09/03/23 08:30 n formoterol [From Symbicort] Allergy Hypertensio Verified 09/03/23 08:30 n propranolol [From Inderal LA] Allergy Confusion Verified 09/03/23 08:30 Quinazolinones Allergy Rash Verified 09/03/23 08:30 primidone AdvReac Intermediate Confusion Verified 09/03/23 08:30 Home Medications Medication Instructions Recorded Confirmed Type aspirin 81 mg chewable tablet 81 mg PO DAILY 09/13/19 08/30/23 History potassium citrate 10 mEq (1,080 2,160 mg PO ONCE 09/13/19 08/30/23 History mg) tablet,extended release (Urocit-K 10) nitroglycerin 0.4 mg sublingual 0.4 mg sublingual Q5MIN PRN Chest 09/14/19 08/30/23 Rx tablet (Nitrostat) Pain #25 tabs fluticasone propionate 50 1 spray intranasal DAILY 01/22/21 08/30/23 History mcg/actuation nasal spray,suspension albuterol sulfate 90 mcg/actuation 2 puff inhalation QID PRN 11/12/22 08/30/23 Rx aerosol inhaler (Ventolin HFA) Shortness Of Breath #8.5 grams atorvastatin 40 mg tablet 40 mg PO DAILY #90 tabs 11/12/22 08/30/23 Rx budesonide 180 mcg/actuation 2 inh inhalation BID #1 ea 11/12/22 08/30/23 Rx breath activated powder inhaler (Pulmicort Flexhaler) furosemide 40 mg tablet 40 mg PO QAM #90 tabs 11/12/22 08/30/23 Rx alprazolam 0.5 mg tablet (Xanax) 0.5 mg PO BID #180 tabs 05/12/23 09/03/23 Rx hydrocodone 5 mg-acetaminophen 325 1 - 2 tablet PO Q6H PRN pain #20 08/13/23 08/30/23 Rx mg tablet tabs Patient hx anesthesia problems: none Family hx anesthesia problems: none Results Review: All pre-operative results and documents have been reviewed as part of the pre-operative evaluation. [facility] Past Medical History Medical History (Updated 09/03/23 @ 06:59 by Julio Hernandez DO) Central sleep apnea Bipap Coronary artery disease H/O renal calculi with removal 2012 Hypertension Injury of right hand 2006, severe injury Normal colonoscopy 2015 Pulmonary hypertension Rhinitis Unspecified asthma Surgical History Surgical History H/O left inguinal hernia repair 2011 S/P appy 1960 S/P left knee arthroscopy 2009 Stented coronary artery proximal LAD Sep 14, 2019 Family History Family History Mother , age 87, good health No problems noted. Grandparent Acute myocardial infarction Heart disease Grandparent Acute myocardial infarction Heart disease Other Asthma Social History Social History Smoking packs per day: 1 Smoking cigarettes per day: 20.0 Years smoked: 20 Smoking pack-years: 20.00 Smoking status: Former smoker Tobacco type: cigarettes Second hand tobacco smoke exposure: No Smoking end date: 11/08/11 Alcohol intake: never Substance use: never Substance use type: does not use Lack of Transportation: No Lack of Food: Never True Current Housing: I Have Housing Concerned About Future Housing: No Difficulty Paying Gas/Electric Bills: No Difficulty Paying for Meds: No Currently Unemployed: No Education: Trade/Vocational Certificate Difficulty w/ Childcare or Family Care: No Living arrangements: with family Occupation/Education: retired Gender identity (if verbalized by the patient): Male Spiritual care concerns: No Agree to blood p
[2023-09-03] MEDS: LACTATED RINGERS 1,000 ML 30 ML IV CONT (08:29)
--- NOTE | 2023-09-03 09:22 | WPDHPUPDATE1 ---
History and Physical Update Update Date/Time: 09/03/23 09:22 History and Physical has been reviewed, including an updated exam of the patient. There are NO changes in the patient's condition. Risks, benefits, and alternatives have been discussed and questions answered. Patient agrees to proceed with procedure.
[2023-09-03] MEDS: ceFAZolin 2 GM/D5W 50 ML 2 GM/50 ML BAG IVPB (09:27)
--- NOTE | 2023-09-03 09:39 | W.PM.PROC2 ---
Procedure Note - Detailed Date of Procedure 09/03/23 Pre-op Diagnosis Rt kidney Stones Post-op Diagnosis Same Procedure Performed Right ESWL Surgeon Isiah Nieto MD Anesthesia General Description of Procedure The patient was brought to the operative suite where he was placed in the supine position on the Dornier lithotripsy table. The focal point of the lithotripter was placed at 2 stones in his right kidney. A total of 2500 shocks were delivered at a power setting of 1-5. There appeared to be good fragmentation of the stone. The patient tolerated the procedure well and was taken to the recovery room in good condition. Drains No Packing No Pathology None sent Complications No immediate complications
[2023-09-03] MEDS: fentaNYL CITRATE INJ (*CRX) 100 MCG/2 ML VIAL 25 MCG IV PUSH ×6 (10:24→10:41)
[2023-09-03] MEDS: oxyCODONE HCL (*CRX) 5 MG TAB IR PO (11:35)
== END 2023-09-03 11:51 | disposition home or self-care (01) ==
PROVIDERS: PCP Family Medicine Adolescent Medicine; Visit Provider Urology
PROC: (CPT 50590; principal; 2023-09-03 09:30)
DX: N20.0 Calculus of kidney (principal); G47.31 Primary central sleep apnea; I10 Essential (primary) hypertension; I25.10 Atherosclerotic heart disease of native coronary artery without angina pectoris; J45.909 Unspecified asthma, uncomplicated; I27.20 Pulmonary hypertension, unspecified; Z79.82 Long term (current) use of aspirin; Z79.51 Long term (current) use of inhaled steroids; Z79.891 Long term (current) use of opiate analgesic; Z95.5 Presence of coronary angioplasty implant and graft; Z87.891 Personal history of nicotine dependence
CPT/HCPCS: 50590; 74018; A9270; J0690; J1100; J2405; J2704; J3010; J7120

== ENCOUNTER 2023-09-16 06:59 | Outpatient (CLI) | payer MEDICARE, SELFPAY ==
--- NOTE | ~2023-09-16 | XR_ITS ---
EXAMINATION: XR abdomen/kub 1V INDICATION: Calculus of the kidney TECHNIQUE: Supine views of the abdomen were obtained on 2 radiographs. COMPARISON: 09/03/2023 FINDINGS: A previously described 17 mm stone of the right mid kidney is no longer evident, consistent with interval lithotripsy. There are stone fragments in the kidney which measure up to 11 mm. Stones measuring 5 mm and 3 mm are present in the upper and lower poles of the right kidney, respectively. There are stable stones measuring 3 mm 8 mm in the upper and lower poles of left kidney, respectively . No stones are identified along the expected courses of the ureters or in the urinary bladder. There are phleboliths of the pelvis. A moderate volume of colonic stool is present. IMPRESSION: 1. Interval fragmentation of the previously described right kidney stone, consistent with lithotripsy change. Bilateral nephrolithiasis. 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 Interval fragmentation of the previously described right kidney stone, consi stent with lithotripsy change. Bilateral nephrolithiasis.
== END 2023-09-16 07:00 | disposition home or self-care (01) ==
PROVIDERS: PCP Family Medicine Adolescent Medicine; Visit Provider Urology
DX: N20.0 Calculus of kidney (principal)
CPT/HCPCS: 74018

== ENCOUNTER 2024-01-31 07:15 | Outpatient (CLI) | payer MEDICARE, SELFPAY ==
--- NOTE | ~2024-01-31 | XR_ITS ---
XR abdomen/kub 1V 01/31/2024 07:40 Indication: Renal stones Procedure: KUB Comparison: 09/16/2023 Findings: Stable bilateral nephrolithiasis. There are pelvic phleboliths unchanged. There are surgica l changes suggesting prior left inguinal hernia repair. There is atherosclerosis. Bowel pattern nonob structive. Moderate colonic fecal loading. Impression: 1: Bilateral nephrolithiasis unchanged. Reviewed, dictated and finalized at location B. Impression: 1: Bilateral nephrolithiasis unchanged.
== END 2024-01-31 07:16 | disposition home or self-care (01) ==
LOC: ANHIMG 07:18
PROVIDERS: PCP Family Medicine Adolescent Medicine; Visit Provider Urology
DX: N20.0 Calculus of kidney (principal)
CPT/HCPCS: 74018

== ENCOUNTER 2024-03-21 09:23 | Outpatient (CLI) | payer MEDICARE, SELFPAY ==
--- NOTE | ~2024-03-21 | US_ITS ---
EXAMINATION: US carotid duplex BI DATE: 03/21/2024 10:28 INDICATION: Left carotid bruit TECHNIQUE: Grayscale, color Doppler, and pulsed Doppler images of the cervical carotid arteries were obtained. The degree of vessel stenosis is placed in one of the following categories: normal, <50%, 5 0-69%, >=70% but less than near-occlusion, near-occlusion, or total occlusion. Note that percent sten osis relative to normal distal artery lumen diameter is indirectly measured from velocity measurement s as described by Angel, et al. Radiology 2003; 229:340-346. COMPARISON: None. FINDINGS: RIGHT: The right common carotid artery (CCA) peak systolic velocity (PSV) is 55 cm/s. The right internal car otid artery (ICA) PSV is 111 cm/s. The right ICA end-diastolic velocity (EDV) is 40 cm/s. The right I CA/CCA PSV ratio is 2.0. Grayscale and color Doppler images yield an estimate of <50% diameter reduct ion from plaque in the ICA. The external carotid artery (ECA) PSV is 111 cm/s. There is antegrade albin w in the right vertebral artery. LEFT: The left CCA PSV is 84 cm/s. The left ICA PSV is 85 cm/s. The left ICA EDV is 31 cm/s. The left ICA/C CA PSV ratio is 1.0. Grayscale and color Doppler images yield an estimate of <50% diameter reduction from plaque in the ICA. The ECA PSV is 83 cm/s. There is antegrade flow in the left vertebral artery. IMPRESSION: 1. <50% stenosis in the right internal carotid artery. 2. <50% stenosis in the left internal carotid artery. Reviewed, dictated and finalized at location B.
== END 2024-03-21 09:24 | disposition home or self-care (01) ==
LOC: ANHIMG 09:25
PROVIDERS: PCP Family Medicine Adolescent Medicine; Visit Provider Internal Medicine Cardiovascular Disease
DX: I65.23 Occlusion and stenosis of bilateral carotid arteries (principal)
CPT/HCPCS: 93880

== ENCOUNTER 2024-09-30 13:27 | Outpatient (CLI) | payer MEDICARE, SELFPAY ==
--- NOTE | ~2024-09-30 | MR_ITS ---
EXAMINATION: MR lumbar spine wo con DATE: 09/30/2024 15:32 INDICATION: Sciatica, right-sided. TECHNIQUE: Magnetic resonance imaging (MRI) of the lumbar spine was performed without intravenous con trast. Sequences included sagittal T2-weighted FSE, sagittal T2-weighted FS FSE, sagittal T1-weighted FSE, and axial T2-weighted FSE. COMPARISON: None FINDINGS: There is 3 degrees levocurvature of lumbar spine. There is 3 mm retrolisthesis of L2 on L3 and 9 mm anterolisthesis of L4 on L5. Vertebral body heights are normal. There is mildly decreased di sc height at L3-L4 and moderately decreased disc height at L4-L5. The distal spinal cord signal inten sity is normal. The conus medullaris is at L1. The following disc levels are specifically discussed: L1-L2: The disc is bulging. There is severe right and moderate left facet joint osteoarthritis. There is moderate right and mild left neural foraminal stenosis. There is mild central canal stenosis. L2-L3: The disc is bulging and has an annular fissure. There is mild bilateral facet joint osteoarthr itis. There is mild right and moderate left neural foraminal stenosis. There is mild central canal st enosis. L3-L4: The disc is bulging and has an annular fissure. There is severe bilateral facet joint osteoart hritis. There is a 6 mm synovial cyst of right facet joint in the epidural space. There is moderate r ight and mild left neural foraminal stenosis. There is moderate central canal stenosis. There is mauricio re stenosis of right lateral recess. L4-L5: The disc does not extend beyond the endplate margin. There is severe bilateral facet joint ost eoarthritis. There is mild bilateral neural foraminal stenosis. There is mild central canal stenosis. There is severe stenosis of right lateral recess and moderate stenosis of left lateral recess. L5-S1: The disc is bulging. There is mild right and moderate left facet joint osteoarthritis. There i s mild bilateral neural foraminal stenosis. There is mild central canal stenosis. IMPRESSION: 1. Moderate lumbar spondylosis. Reviewed, dictated and finalized at location A. 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
== END 2024-09-30 13:28 | disposition home or self-care (01) ==
PROVIDERS: PCP Family Medicine Adolescent Medicine; Visit Provider Family Medicine Adolescent Medicine
DX: M54.31 Sciatica, right side (principal); M43.06 Spondylolysis, lumbar region
CPT/HCPCS: 72148

== ENCOUNTER 2024-12-15 10:55 | Outpatient (CLI) | payer MEDICARE, SELFPAY ==
--- NOTE | ~2024-12-15 | XR_ITS ---
EXAMINATION: XR lumbar spine min 4V DATE: 12/15/2024 11:44 INDICATION: Spondylosis without myelopathy or radiculopathy. TECHNIQUE: 4 views of lumbar spine including flexion and extension and standing views were obtained. COMPARISON: None. FINDINGS: There is 9 degrees levocurvature of lumbar spine. There is 10 mm anterolisthesis of L4 on L 5. There is 3 mm anterolisthesis of L3 on L4. The spine is hypomobile with flexion and extension. Joe tebral body heights are normal. There is mildly decreased disc height at L3-L4 and moderately decreas ed disc height at L4-L5. There is multilevel facet joint osteoarthritis, severe in lower lumbar spine . IMPRESSION: 1. Moderate lumbar spondylosis. Reviewed, dictated and finalized at location A. IDENTIAL INVESTIGATOR
--- NOTE | ~2024-12-15 | XR_ITS ---
EXAMINATION: XR scoliosis survey DATE: 12/15/2024 11:44 INDICATION: Spondylosis without myelopathy or radiculopathy. TECHNIQUE: Anteroposterior and lateral views of the entire spine standing were obtained. COMPARISON: None. FINDINGS: Right femoral head stands 1.5 cm higher than the left. There are 12 pairs of ribs. L5 is a transitional segment. There is 4 degrees dextrocurvature from T2 to T12 and 9 degrees levocurvature f rom T12 to L4. There is 3 mm anterolisthesis of L3 on L4 and 10 mm anterolisthesis of L4 on L5. There is severe cervical spondylosis, mild thoracic spondylosis, moderate lumbar spondylosis. IMPRESSION: 1. Right femoral head stands 1.5 cm higher than the left. 2. 4 degrees dextrocurvature from T2 to T12 and 9 degrees levocurvature from T12 to L4. Reviewed, dictated and finalized at location A. ICS TECHNICIAN IMPRESSION: 1. Right femoral head stands 1.5 cm higher than the left. 2. 4 degrees dextrocurvature from T2 to T12 and 9 degrees levocurvature from T1 2 to L4.
--- OUTSIDE RECORDS SUMMARY | 2024-12-15 11:41 | XMS_ITS | Clinical Summary ---
Author Organization [facility] Address [address] [place] [address] Care Team Providers Care Systems Technologist Name Role Phone Unavailable Primary Care Provider Unavailabl e Social History Tobacco Use Types Packs/Day Years Used Date Smoking Tobacco: Smoker, Current Status Unknown Sex and Gender Information Value Date Recorded Sex Assigned at Not on file Legal Sex Male 10:11 PM CDT Gender Identity Not on file Sexual Orientation Not on file Last Filed Vital Signs Vital Sign Reading Time Taken Comments Blood Pressure 150/84 05/29/2013 7:35 AM CDT lef t Pulse 54 05/29/2013 7:34 AM CDT Regul ar Temperature - - Respiratory Rate - - Oxygen Saturation - - Inhaled Oxygen Concentration - - Weight 90.3 kg (199 lb) 05/29/2013 7:34 AM CDT Height 177.8 cm (5' 10 ) 05/29/2013 7:34 AM CDT Body Mass Index 28.55 05/29/2013 7:34 AM CDT Plan of Treatment Health Maintenance Due Date Last Done Comments Colorectal Cancer Screening Colonoscopy (10 Years) 1949 Hepatitis C 1967 DTaP, Tdap and Td Vaccines ( 1 - Tdap) 1968 Zoster Vaccines (1 of 2) 1999 Pneumococcal Vaccine: 65+ Ye ars (1 of 1 - PCV) 2014 COVID-19 Vaccine ( - 2023-2 5 season) 2024 Influenza Adult (#1) 2024 RSV Immunization or 60+ Years (1 - 1-dose 75+ series) 2024 Meningococcal B Vaccine Aged Out No l onger eligible based on patient's age to complete this topic Meningococcal Vaccine Aged Out No jaron velia eligible based on patient's age to complete this topic RSV Immunizations Under 20 Months Aged Out No longer eligible based on patient's age to complete this topic
--- OUTSIDE RECORDS SUMMARY | 2024-12-15 11:41 | XMS_ITS | Patient Health Summary ---
Author Organization [facility] Address [address] [place] [address] Care Team Providers Care Brake Machine Operator Name Role Phone Brian Viveros MD Primary Care Provider + Note from [facility],non-owned Affiliates and Associated Physician Practices is amultiple site organization consisting of ambulatory clinics and hospital sitesin [place], [place], [place] and [place]. This disclosure is being madepursuant to the Care Everywhere program and may not contain all information available regarding this patient. Last updated 18.[facility] Social History Tobacco Use Types Packs/Day Years Used Date Smoking Tobacco: Every Day Cigarettes Alcohol Use Standard Drinks/Week Comments No 0 (1 standard drink = 0.6 oz pur e alcohol) Sex and Gender Information Value Date Recorded Sex Assigned at Not on file Gender Identity Not on file Sexual Orientation Not on file Care Teams Brake Machine Operator Relationship Specialty Start Date End Date Brian Viveros MD [address] [address] PCP - General 12/15/12
--- OUTSIDE RECORDS SUMMARY | 2024-12-15 11:41 | XMS_ITS | Referral Summary ---
Author Organization [facility] Address [address] [place] [address] Care Team Providers Care Shank Boner Name Role Phone Brian Viveros MD Primary Care Provider + Source Comments [facility],non-owned Affiliates and Associated Physician Practices is amultiple site organization consisting of ambulatory clinics and hospital sitesin [place], [place], [place] and [place]. This disclosure is being madepursuant to the Care Everywhere program and may not contain all information available regarding this patient. Last updated 18.[facility] Social History Tobacco Use Types Packs/Day Years Used Date Smoking Tobacco: Every Day Cigarettes Alcohol Use Standard Drinks/Week Comments No 0 (1 standard drink = 0.6 oz pur e alcohol) Sex and Gender Information Value Date Recorded Sex Assigned at Not on file Gender Identity Not on file Sexual Orientation Not on file Plan of Treatment Not on file Care Teams Shank Boner Relationship Specialty Start Date End Date Brian Viveros MD [address] [address] PCP - General 12/15/12
--- OUTSIDE RECORDS SUMMARY | 2024-12-15 11:41 | XMS_ITS | Clinical Summary ---
Author Organization [facility] Address [address] [place] [address] Care Team Providers Care Automobile Body Customizer Name Role Phone Brian Viveros MD Primary Care Provider + Source Comments [facility],non-owned Affiliates and Associated Physician Practices is amultiple site organization consisting of ambulatory clinics and hospital sitesin [place], [place] and [place]. This disclosure is being madepursuant to the Care Everywhere program and may not contain all information available regarding this patient. Last updated 18.[facility] Social History Tobacco Use Types Packs/Day Years Used Date Smoking Tobacco: Every Day Cigarettes Alcohol Use Standard Drinks/Week Comments No 0 (1 standard drink = 0.6 oz pur e alcohol) Sex and Gender Information Value Date Recorded Sex Assigned at Not on file Gender Identity Not on file Sexual Orientation Not on file Plan of Treatment Health Maintenance Due Date Last Done Comments COLOGUARD (AGES 45-75) - COL ON CA SCREENING 1949 COLON MONITORING 1949 COLONOSCOPY - COLON CA SCREENING 1949 CT COLONOGRAPHY - COLON CA SCREENING 1949 Colorectal Cancer Screening 1949 FIT - COLON CA SCREENING 1949 FLEX SIG - COLON CA SCREENING 1949 LIPID TESTING 1949 HEPATITIS C SCREENING 10/13/1967 DTAP/TDAP/TD VACCINES (1 - Tdap) 1968 PNEUMOCOCCAL VACCINE 50+ (1 of 2 - PCV) 1968 ZOSTER VACCINE (1 of 2) 1999 COVID-19 VACCINE (2023-2 5 season) 2024 INFLUENZA VACCINE (#1) 2024 Respiratory Syncytial Virus (RSV) Vaccine Pt: or over 60 yrs (1 - 1-dose 75+ series) 2024 DEPRESSION SCREENING 11/08/2024 HEPATITIS B VACCINE Aged Out No longe r eligible based on patient's age to complete this topic HIB VACCINE Aged Out No longer eligi ble based on patient's age to complete this topic HPV VACCINE Aged Out No longer eligi ble based on patient's age to complete this topic MENINGOCOCCAL (Group B) VACCINE Aged Out No longer eligible based on patient's age to complete this topic MENINGOCOCCAL VACCINE Aged Out No jaron velia eligible based on patient's age to complete this topic Care Teams Automobile Body Customizer Relationship Specialty Start Date End Date Brian Viveros MD [address] [address] PCP - General 12/15/12
--- OUTSIDE RECORDS SUMMARY | 2024-12-15 11:41 | XMS_ITS | Clinical Summary ---
Author Organization [facility] [address] Address [address] [place] [address] Care Team Providers Care Machine Erector Name Role Phone Brian Viveros MD Primary Care Prov ider Allergies Active Allergy Reactions Criticality Noted Date Comments Propranolol Other (See comments) Low 09/07/2019 Confusion Quinazolinones Rash Medium 09/07/2019 Budesonide-Formoterol Other (See comments) Low 08/10 Hypertension Medications ALPRAZolam (XANAX) 0.5 mg tablet Take 1 tablet (0.5 mg total) by mouth 2 (two) times a day 5 9 Active potassium citrate ER (UROCIT-K) 10 mEq (1,080 mg) CR tablet 2 TABS BY MOUTH DAILY 12 9 Active aspirin 81 mg enteric coated tablet Take 1 tablet (81 mg total) by mouth daily 30 tablet 11 9 Active fluticasone propionate (FLONASE) 50 mcg/actuation nasal spray Administer 1 spray into each nostril daily Active Ventolin HFA 90 mcg/actuation inhaler Inhale 2 puffs every 4 (four) hours as needed for wheezing 1 Inhaler 10 1 Active atorvastatin (LIPITOR) 40 mg tabletIndicatio ns:Coronary artery disease involving [place] coronary artery of [place] heart without angina pectoris Take 1 tablet (40 mg total) by mouth daily 90 tablet 3 3 Active nitroglycerin (NITROSTAT) 0.[address] 1 tablet (0.4 mg total) under the tongue every 5 (five) minutes as needed for chest pain 25 tablet 3 3 Active furosemide (LASIX) 40 mg tablet Take 1 tablet (40 mg total) by mouth daily 90 tablet 3 3 Active predniSONE (DELTASONE) 10 mg tablet 4 Active Active Problems Problem Noted Date Diagnosed Date Left carotid bruit 03/08/2024 LEONCIO (obstructive sleep apnea) 01/18/2020 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/29/2019 Presence of stent in coronary artery 09/29/2019 Essential hypertension 09/11/2019 Pulmonary hypertension 09/11/2019 Nonrheumatic mitral valve regurgitation 09/11/20 19 Asthma 09/11/2019 PRESCOTT (dyspnea on exertion) 09/11/2019 PVC (premature ventricular contraction) 09/11/20 19 Snoring 09/11/2019 Hypersomnolence 09/11/2019 Tiredness 09/11/2019 Surgical History Surgery Date Site/Laterality Comments ANGIOPLASTY 2019 APPENDECTOMY 1960 CATARACT EXTRACTION 2013 HERNIA REPAIR 2010 Medical History Medical History Date Comments Hypertension Allergic rhinitis Anxiety Asthma Kidney stones Essential tremor right hand Cataract 2013 Heart disease 2019 Sleep apnea 2019 Family History Medical History Relation Name Comments Heart attack Maternal Grandfather Yan Arthritis Mother Anabelle natural causes Mother Anabelle Relation Name Status Comments Father Maternal Grandfather Yan Mother Anabelle (Age 88) Sister Alive Social History Tobacco Use Types Packs/Day Years Used Date Smoking Tobacco: Former Cigarettes 1 30 1 11/11/1981 - 09/11/2012 Smokeless Tobacco: Never Alcohol Use Standard Drinks/Week Comments Never 0 (1 standard drink = 0.6 oz pur e alcohol) AUDIT-C Answer Date Recorded Frequency of Alcohol Consumption Never 09/11/2019 Average Number of Drinks Not on file 019 Frequency of Binge Drinking Not on file 02/2019 Sex and Gender Information Value Date Recorded Sex Assigned at Not on file Legal Sex Male 6:23 PM LEASING MANAGER Gender Identity Male 02/16/2023 8:50 AM CDT Sexual Orientation Straight 02/16/2023 8: 50 AM CDT Obstetrics History Last Filed Vital Signs Vital Sign Reading Time Taken Comments Blood Pressure 130/72 09/04/2024 8:17 AM CDT Pulse 58 09/04/2024 8:17 AM CDT Temperature 36.5 C (97.7 F) 01/09/2021 10:57 AM LEASING MANAGER Respiratory Rate - - Oxygen Saturation 99% 09/04/2024 8:17 AM CDT Inhaled Oxygen Concentration - - Weight 89.4 kg (197 lb) 09/04/2024 8:17 AM CDT Height 177.8 cm (5' 10 ) 09/04/2024 8:17 AM CDT Body Mass Index 28.27 09/04/2024 8:17 AM CDT Plan of Treatment Health Maintenance Due Date Last Done Comments Colon Cancer Screening-Colonoscopy 1949 Depression Screening 1949 Fall Risk Assessment 1949 Hepatitis C Screening 1949 Pneumococcal vaccine 65+ (1 of 2 - PCV) 1955 DTaP/Tdap/Td Vaccine (1 - Tdap) 1960 Hepatitis B Screening 1967 Lung Cancer Screening 1999 Zoster Vaccine (1 of 2) 1999 Abdominal Aortic Aneurysm (A AA) Screen 2014 Well Visit 65+ 2014 Influenza Vaccine (#1) 2024 9, 08/29/2018, 08/22/2017 Insurance MEDICARE [facility] MEDICARE [facility] Care Teams Machine Erector Relationship Specialty Start Date End Date Brian Viveros MD [address] [place] [address] PCP - General Family Medicine 08/23/19
--- OUTSIDE RECORDS SUMMARY | 2024-12-15 11:41 | XMS_ITS | Referral Summary ---
Author Organization [facility] [address] Address [address] [place] [address] Care Team Providers Care Unbundler Name Role Phone Brian Viveros MD Primary [...] 40 mg tabletIndicatio ns:Coronary artery disease involving [place] coronary artery of [place] heart without angina pectoris Take 1 tablet [...] artery disease of n ative artery of [place] heart with stable angina pectoris 09/29/2019 Presence of stent in coronary artery 09/29/2019 Essential hypertension 09/11/2019 Pulmonary hypertension 09/11/2019 Nonrheumatic mitral valve regurgitation 09/11/20 19 Asthma 09/11/2019 PRESCOTT (dyspnea on exertion) 09/11/2019 PVC (premature ventricular contraction) 09/11/20 19 Snoring 09/11/2019 Hypersomnolence 09/11/2019 Tiredness 09/11/2019 Social History Tobacco Use Types Packs/Day Years [...] on file Legal Sex Male 6:23 PM COMMERCIAL LINES ACCOUNT MANAGER Gender Identity Male 02/16/2023 8:50 AM CDT Sexual Orientation Straight 02/16/2023 8: 50 AM CDT Last Filed Vital Signs Vital Sign Reading Time Taken Comments Blood Pressure 130/72 09/04/2024 8:17 AM CDT Pulse 58 09/04/2024 8:17 AM CDT Temperature 36.5 C (97.7 F) 01/09/2021 10:57 AM COMMERCIAL LINES ACCOUNT MANAGER Respiratory Rate - - Oxygen Saturation 99% 09/04/2024 8:17 AM CDT Inhaled Oxygen Concentration - - Weight 89.4 kg (197 lb) 09/04/2024 8:17 AM CDT Height 177.8 cm (5' 10 ) 09/04/2024 8:17 AM CDT Body Mass Index 28.27 09/04/2024 8:17 AM CDT Plan of Treatment Not on file Insurance MEDICARE [facility] MEDICARE [facility] Care Teams Unbundler Relationship Specialty Start Date End Date Brian Viveros MD [address] [place] [address] PCP - General Family Medicine 08/23/19
== END 2024-12-15 10:56 | disposition home or self-care (01) ==
LOC: ANHIMG 11:01
PROVIDERS: PCP Family Medicine Adolescent Medicine; Visit Provider Neurological Surgery
DX: M47.816 Spondylosis without myelopathy or radiculopathy, lumbar region (principal); M43.06 Spondylolysis, lumbar region; M43.8X4 Other specified deforming dorsopathies, thoracic region; M43.8X5 Other specified deforming dorsopathies, thoracolumbar region
CPT/HCPCS: 72082; 72110

== ENCOUNTER 2025-01-02 09:38 | Outpatient (CLI) | payer MEDICARE, SELFPAY ==
--- NOTE | ~2025-01-02 | XR_ITS ---
EXAMINATION: XR abdomen/kub 1V DATE: 01/02/2025 09:57 INDICATION: Kidney stone. TECHNIQUE: A supine view of the abdomen on 2 radiographs was obtained. COMPARISON: CT abdomen and pelvis 07/27/2023 FINDINGS: There are no dilated loops of bowel. The kidneys are obscured by bowel. There are least 5 s tones in right kidney measuring up to 6 mm. There are approximately 6 stones in left kidney measuring up to 8 mm. There are phleboliths in the pelvis. There are surgical clips from a left inguinal herni a repair. IMPRESSION: 1. Bilateral kidney stones. Reviewed, dictated and finalized at location A. RDOUS WASTE MATERIAL TECHNICIAN IMPRESSION: 1. Bilateral kidney stones.
--- OUTSIDE RECORDS SUMMARY | 2025-01-02 10:46 | XMS_ITS | Referral Summary ---
Author Organization [facility] [address] Address [address] [place] [address] Care Team Providers Care Binitrotoluene Operator Name Role Phone Brian Viveros MD [...] 40 mg tabletIndicatio ns:Coronary artery disease involving [place] coronary artery of [place] heart without angina pectoris Take 1 tablet [...] artery disease of n ative artery of [place] heart with stable angina pectoris 09/29/2019 Presence [...] on file Legal Sex Male 6:23 PM HEAVY FORGING MACHINE OPERATOR Gender Identity Male 02/16/2023 8:50 AM CDT Sexual Orientation Straight 02/16/2023 8: 50 AM CDT Last Filed Vital Signs Vital Sign Reading Time Taken Comments Blood Pressure 130/72 09/04/2024 8:17 AM CDT Pulse 58 09/04/2024 8:17 AM CDT Temperature 36.5 C (97.7 F) 01/09/2021 10:57 AM HEAVY FORGING MACHINE OPERATOR Respiratory Rate - - Oxygen Saturation 99% 09/04/2024 8:17 AM CDT Inhaled Oxygen Concentration - - Weight 89.4 kg (197 lb) 09/04/2024 8:17 AM CDT Height 177.8 cm (5' 10 ) 09/04/2024 8:17 AM CDT Body Mass Index 28.27 09/04/2024 8:17 AM CDT Plan of Treatment Not on file Insurance MEDICARE [facility] MEDICARE [facility] Care Teams Binitrotoluene Operator Relationship Specialty Start Date End Date Brian Viveros MD [address] [place] [address] PCP - General Family Medicine 08/23/19
--- OUTSIDE RECORDS SUMMARY | 2025-01-02 10:46 | XMS_ITS | Clinical Summary ---
Author Organization [facility] [address] Address [address] [place] [address] Care Team Providers Care Chief Nurse Name Role Phone Brian Viveros MD Primary [...] 40 mg tabletIndicatio ns:Coronary artery disease involving [place] coronary artery of [place] heart without angina pectoris Take 1 tablet [...] artery disease of n ative artery of [place] heart with stable angina pectoris 09/29/2019 Presence [...] on file Legal Sex Male 6:23 PM MANAGER COLLEGE Gender Identity Male 02/16/2023 8:50 AM CDT Sexual Orientation Straight 02/16/2023 8: 50 AM CDT Obstetrics History Last Filed Vital Signs Vital Sign Reading Time Taken Comments Blood Pressure 130/72 09/04/2024 8:17 AM CDT Pulse 58 09/04/2024 8:17 AM CDT Temperature 36.5 C (97.7 F) 01/09/2021 10:57 AM MANAGER COLLEGE Respiratory Rate - - Oxygen Saturation 99% [...] Risk Assessment 1949 Hepatitis C Screening 1949 DTaP/Tdap/Td Vaccine (1 - Tdap) 1960 Hepatitis B Screening 1967 Pneumococcal vaccine 65+ (1 of 2 - PCV) 1968 Lung Cancer Screening 1999 Zoster Vaccine (1 of 2) 1999 Abdominal Aortic Aneurysm (A AA) Screen 2014 Well Visit 65+ 2014 Influenza Vaccine (#1) 2024 9, 08/29/2018, 08/22/2017 Insurance MEDICARE [facility] MEDICARE [facility] Care Teams Chief Nurse Relationship Specialty Start Date End Date Brian Viveros MD [address] [place] [address] PCP - General Family Medicine 08/23/19
--- OUTSIDE RECORDS SUMMARY | 2025-01-02 10:47 | XMS_ITS | Clinical Summary ---
Author Organization [facility] Address [address] [place] [address] Care Team Providers Care Distance Learning Program Coordinator Name Role Phone Unavailable Primary Care Provider [...]
--- OUTSIDE RECORDS SUMMARY | 2025-01-02 10:47 | XMS_ITS | Referral Summary ---
Author Organization [facility] [employer] Address [address] [place] [address] Care Team Providers Care Diabetic Educator Name Role Phone Brian Viveros MD Primary Care Provider + Source Comments [facility],non-owned Affiliates and Associated Physician Practices is amultiple site organization consisting of ambulatory clinics and hospital sitesin [place], [place], [place] and [place]. This disclosure is being madepursuant to the Care Everywhere program and may not contain all information available regarding this patient. Last updated 18.[facility] [employer] Social History Tobacco Use Types Packs/Day Years Used Date Smoking Tobacco: Every Day Cigarettes Alcohol Use Standard Drinks/Week Comments No 0 (1 standard drink = 0.6 oz pur e alcohol) Sex and Gender Information Value Date Recorded Sex Assigned at Not on file Gender Identity Not on file Sexual Orientation Not on file Plan of Treatment Not on file Care Teams Diabetic Educator Relationship Specialty Start Date End Date Brian Viveros MD [address] [address] PCP - General 12/15/12
--- OUTSIDE RECORDS SUMMARY | 2025-01-02 10:47 | XMS_ITS | Clinical Summary ---
Author Organization [facility] [employer] Address [address] [place] [address] Care Team Providers Care Social Services Technician Name Role Phone Brian Viveros MD Primary Care Provider + Source Comments [facility] [employer],non-owned Affiliates and Associated Physician Practices is amultiple site organization consisting of ambulatory clinics and hospital sitesin [place], [place], [place] and [place]. This disclosure is being madepursuant to the Care Everywhere program and may not contain all information available regarding this patient. Last updated 18.[facility] [employer] Social History Tobacco Use Types Packs/Day Years [...] age to complete this topic Care Teams Social Services Technician Relationship Specialty Start Date End Date Brian Viveros MD [address] [address] PCP - General 12/15/12
--- OUTSIDE RECORDS SUMMARY | 2025-01-02 10:47 | XMS_ITS | Patient Health Summary ---
Author Organization [facility] Address [address] [place] [address] Care Team Providers Care Big Data Hadoop Developer Name Role Phone Brian Viveros MD Primary Care Provider + Note from [facility] [place],non-owned Affiliates and Associated Physician Practices is amultiple site organization consisting of ambulatory clinics and hospital sitesin [place], [place], [place] and [place]. This disclosure is being madepursuant to the Care Everywhere program and may not contain all information available regarding this patient. Last updated 18.[facility] Social History Tobacco Use Types Packs/Day Years Used Date Smoking Tobacco: Every Day Cigarettes Alcohol Use Standard Drinks/Week Comments No 0 (1 standard drink = 0.6 oz pur e alcohol) Sex and Gender Information Value Date Recorded Sex Assigned at Not on file Gender Identity Not on file Sexual Orientation Not on file Care Teams Big Data Hadoop Developer Relationship Specialty Start Date End Date Brian Viveros MD [address] [address] PCP - General 12/15/12
== END 2025-01-02 09:39 | disposition home or self-care (01) ==
PROVIDERS: PCP Family Medicine Adolescent Medicine; Visit Provider Urology
DX: N20.0 Calculus of kidney (principal)
CPT/HCPCS: 74018

== ENCOUNTER 2025-01-19 09:39 | Outpatient (CLI) | payer MEDICARE, SELFPAY ==
--- OUTSIDE RECORDS SUMMARY | 2025-01-19 10:16 | XMS_ITS | Clinical Summary ---
Author Organization [facility] [address] Address [address] [place] [address] Care Team Providers Care Tool And Die Engineer Name Role Phone Brian Viveros MD Primary [...] 40 mg tabletIndicatio ns:Coronary artery disease involving [place] coronary artery of [place] heart without angina pectoris Take 1 tablet [...] artery disease of n ative artery of [place] heart with stable angina pectoris 09/29/2019 Presence [...] on file Legal Sex Male 6:23 PM PATIENT LIAISON Gender Identity Male 02/16/2023 8:50 AM CDT Sexual Orientation Straight 02/16/2023 8: 50 AM CDT Obstetrics History Last Filed Vital Signs Vital Sign Reading Time Taken Comments Blood Pressure 130/72 09/04/2024 8:17 AM CDT Pulse 58 09/04/2024 8:17 AM CDT Temperature 36.5 C (97.7 F) 01/09/2021 10:57 AM PATIENT LIAISON Respiratory Rate - - Oxygen Saturation 99% [...] (#1) 2024 9, 08/29/2018, 08/22/[address] [facility] [address]ARE [facility] Care Teams Tool And Die Engineer Relationship Specialty Start Date End Date Brian Viveros MD [address] [place] [address] PCP - General Family Medicine 08/23/19
--- OUTSIDE RECORDS SUMMARY | 2025-01-19 10:16 | XMS_ITS | Clinical Summary ---
Author Organization [facility] Address [address] [place] [address] Care Team Providers Care Air Export Coordinator Name Role Phone Unavailable Primary Care [...]
--- OUTSIDE RECORDS SUMMARY | 2025-01-19 10:16 | XMS_ITS | Patient Health Summary ---
Author Organization [facility] Address [address] [place] [address] Care Team Providers Care Senior Mobile Web Developer Name Role Phone Brian Viveros MD Primary Care Provider + Note from [facility] [facility],non-owned Affiliates and Associated Physician Practices is amultiple site organization consisting of ambulatory clinics and hospital sitesin [place], [place], [place] and [place]. This disclosure is being madepursuant to the Care Everywhere program and may not contain all information available regarding this patient. Last updated 18.[facility] Social History Tobacco Use Types Packs/Day Years Used Date Smoking Tobacco: Every Day Cigarettes Alcohol Use Standard Drinks/Week Comments No 0 (1 standard drink = 0.6 oz pur e alcohol) Sex and Gender Information Value Date Recorded Sex Assigned at Not on file Gender Identity Not on file Sexual Orientation Not on file Care Teams Senior Mobile Web Developer Relationship Specialty Start Date End Date Brian Viveros MD [address] [address] PCP - General 12/15/12
--- OUTSIDE RECORDS SUMMARY | 2025-01-19 10:16 | XMS_ITS | Referral Summary ---
Author Organization [facility] [address] Address [address] [place] [address] Care Team Providers Care Supervisor Home Energy Consultant Name Role Phone Brian Viveros MD Primary [...] 40 mg tabletIndicatio ns:Coronary artery disease involving [place] coronary artery of [place] heart without angina pectoris Take 1 tablet [...] artery disease of n ative artery of [place] heart with stable angina pectoris 09/29/2019 Presence [...] on file Legal Sex Male 6:23 PM CLIMATE CHANGE RISK ASSESSOR Gender Identity Male 02/16/2023 8:50 AM CDT Sexual Orientation Straight 02/16/2023 8: 50 AM CDT Last Filed Vital Signs Vital Sign Reading Time Taken Comments Blood Pressure 130/72 09/04/2024 8:17 AM CDT Pulse 58 09/04/2024 8:17 AM CDT Temperature 36.5 C (97.7 F) 01/09/2021 10:57 AM CLIMATE CHANGE RISK ASSESSOR Respiratory Rate - - Oxygen Saturation 99% 09/04/2024 8:17 AM CDT Inhaled Oxygen Concentration - - Weight 89.4 kg (197 lb) 09/04/2024 8:17 AM CDT Height 177.8 cm (5' 10 ) 09/04/2024 8:17 AM CDT Body Mass Index 28.27 09/04/2024 8:17 AM CDT Plan of Treatment Not on file Insurance MEDICARE [facility] MEDICARE [facility] Care Teams Supervisor Home Energy Consultant Relationship Specialty Start Date End Date Brian Viveros MD [address] [place] [address] PCP - General Family Medicine 08/23/19
--- OUTSIDE RECORDS SUMMARY | 2025-01-19 10:16 | XMS_ITS | Clinical Summary ---
Author Organization [facility] Address [address] [place] [address] Care Team Providers Care Manufacturing Technician Name Role Phone Brian Viveros MD Primary Care Provider + Source Comments [facility],non-owned Affiliates and Associated Physician Practices is amultiple site organization consisting of ambulatory clinics and hospital sitesin [place], [place] and [place]. This disclosure is being madepursuant to the Care Everywhere program and may not contain all information available regarding this patient. Last updated 18.[facility] Social History Tobacco Use Types Packs/Day Years [...] Tdap) 1968 PNEUMOCOCCAL VACCINE 50+ (1 of 1 - PCV) 1999 ZOSTER VACCINE (1 of 2) 1999 COVID-19 VACCINE ( - 2023-2 5 season) 2024 INFLUENZA VACCINE (#1) 2024 [...] to complete this topic MENINGOCOCCAL (Group B) VACC INE SHARED DECISION-MAKING Aged Out No longer eligibl e based on patient's age to complete this topic MENINGOCOCCAL GROUPS A/C/Y/W VACCINE Aged Out No longer eligible b ased on patient's age to complete this topic Care Teams Manufacturing Technician Relationship Specialty Start Date End Date Brian Viveros MD [address] [address] PCP - General 12/15/12
--- OUTSIDE RECORDS SUMMARY | 2025-01-19 10:16 | XMS_ITS | Referral Summary ---
Author Organization [facility] Address [address] [place] [address] Care Team Providers Care Canopy Stringer Name Role Phone Brian Viveros MD Primary Care Provider + Source Comments [facility],non-owned Affiliates and Associated Physician Practices is amultiple site organization consisting of ambulatory clinics and hospital sitesin [place], [place], [place] and [place]. This disclosure is being madepursuant to the Care Everywhere program and may not contain all information available regarding this patient. Last updated 18.[facility] Social History Tobacco Use Types Packs/Day Years Used Date Smoking Tobacco: Every Day Cigarettes Alcohol Use Standard Drinks/Week Comments No 0 (1 standard drink = 0.6 oz pur e alcohol) Sex and Gender Information Value Date Recorded Sex Assigned at Not on file Gender Identity Not on file Sexual Orientation Not on file Plan of Treatment Not on file Care Teams Canopy Stringer Relationship Specialty Start Date End Date Brian Viveros MD [address] [address] PCP - General 12/15/12
--- NOTE | 2025-01-19 10:42 | ECG_ITS ---
Test Date: 2025-01-19 11:01:09 Measurements Intervals [place] Rate: 57 P: 68 NM: 135 QRS: 24 QRSD: 109 T: 22 QT: 416 QTc: 408 Interpretive Statements SINUS BRADYCARDIA Electronically Signed On 01-21-2025 13:48:07 CDT by Alexandru Denson D.O
[2025-01-19 11:16] LABS: Hematocrit 38.2 % (42.0-52.0); Hemoglobin 12.6 g/dL (14.0-18.0); Mean Corpuscular Hemoglobin 34.9 pg (26-34); Mean Corpuscular Volume 105.8 fl (80-100); Mean Platelet Volume 9.5 fl (7.4-10.4); Platelet Count Result 141 k/mm3 (150-375); Red Blood Count 3.61 M/mm3 (4.6-6.20); Red Cell Distribution Width 12.8 % (11.5-14.5); White Blood Count 5.3 K/mm3 (4.5-10.0)
[2025-01-19 11:26] LABS: Anion Gap 12 mmol/L (4-12); Blood Urea Nitrogen 13 mg/dL (9-20); Carbon Dioxide 26 mmol/L (22-30); Chloride 101 mmol/L (98-107); Estimated Glomerular Filt Rate 60; Glucose 90 mg/dL (65-110); Potassium 4.3 mmol/L (3.4-5.0); Sodium 139 mmol/L (137-145)
[2025-01-19 11:28] LABS: Add Urine Microscopic? NO; Appearance Urine Clear (Clear); Bilirubin Urine Negative (Negative); Blood Urine Negative (Negative); Color Urine Yellow (Yellow); Glucose Urine UA Negative (Negative); Ketones Urine Negative (Negative); Leukocyte Esterase Ur Negative LEU/UL (Negative); Nitrate Urine Negative (Negative); Protein Urine Negative (Negative); Specific Grav Ur 1.011 (1.001-1.035); Urobilinogen Urine 0.2 mg/dL (<2.0); pH Urine 5.5 (5.0-9.0)
[2025-01-19 11:29] LABS: INR 1.1; Prothrombin Time 14.7 Seconds (11.1-14.7)
== END 2025-01-19 09:40 | disposition home or self-care (01) ==
LOC: ANHSURGERY 09:43
PROVIDERS: PCP Family Medicine Adolescent Medicine; Visit Provider Neurological Surgery
DX: M48.062 Spinal stenosis, lumbar region with neurogenic claudication (principal); I10 Essential (primary) hypertension; Z01.818 Encounter for other preprocedural examination
CPT/HCPCS: 36415; 80048; 81003; 85027; 85610; 85730; 93005

== ENCOUNTER 2025-02-02 00:49 | Day surgery (SDC) | payer MEDICARE, SELFPAY ==
[2025-01-19 10:02] VITALS: BP 149/76; PULSE 55; RESP 16; TEMP 36.9; O2SAT 96; BMI 29.9
--- NOTE | 2025-01-19 10:18 | PC.NURSE ---
Addendum entered by Nadiya Luther RN 01/19/25 10:32: CLEAR LIQUIDS UNTIL 3 HR PRE-OP (4:30AM). Original Note: Report to the Outpatient Waiting Room, entrance under the green pavilion located off [facility], at time ___6:00AM____ on date ___02/02/25____. Planned Procedure Time: ___7:30AM .? Time changes happen often and if your time is changed the preop area will call you the afternoon before. - You and your visitor will be asked to self-screen and do not enter if you have any COVID symptoms. Please call surgeon if you need to reschedule. - A mask is optional within the hospital at this time. Patients may have clear liquids (water, carbonated beverages, clear teas, apple juice) until 3 hours prior to surgery with a maximum of 20 ounces. - No food from midnight until time of surgery and no smoking, or chewing tobacco (or any form of nicotine). No chewing gum, candy or mints. Take only the following medications with a SIP of water on the morning of surgery: ALPRAZOLAM. MAY USE ALBUTEROL INHALER NEEDED. DO NOT STOP ANY OF YOUR OTHER PRESCRIPTION MEDICATIONS PRIOR TO SURGERY EXCEPT THE FOLLOWING Hold all vitamins and supplements for 3 days per anesthesiologist. Medications to discontinue per physician HOLD ASPIRIN AND IBUPROFEN PER DR OSBORNE. Date to take last dose Please no make-up, nail italian, hairspray, perfume, deodorant, or body powder the day of surgery.? No jewelry (including any body piercings) or valuables the day of surgery, leave them at home.? Please take a shower or bath the night before, or the morning of, surgery with an antibacterial soap.? Wear comfortable, loose fitting clothing.? - Jewelry must be removed prior to entering the operating room.? Rings and piercings that are not removed may be cut off. - The hospital will not accept responsibility for valuables.? - Please leave all valuables, including medications, at home the day of surgery. If you are going home after surgery, a licensed team cdl driver must drive you home.? - NO public transportation without another adult if you receive anesthesia. - We recommend that an adult stay with you for 24 hours following discharge. - We also recommend that you do not drive, make important decision, drink alcoholic beverages, or take any drugs that were not prescribed by your health care provider for at least 24 hours after your discharge time. Follow any additional instructions given to you from your surgeon. Telephone instructions given to ___PATIENT and asked if any additional questions and then verbalized understanding. Patient advised to call surgeon office or pre surgery nurse liaison [phone] if any additional questions.
[2025-02-02] VITALS (14 sets, daily range): BP systolic 112–140; BP diastolic 62–87; PULSE 54–82; RESP 12–20; TEMP 36.3–37.1; O2SAT 94–100; BMI 30.1
--- NOTE | ~2025-02-02 | XR_ITS ---
EXAMINATION: XR fluoroscopy no charge DATE: 02/02/2025 12:50 INDICATION: Lumbar spondylosis. TECHNIQUE: 2 intraoperative fluoroscopic views of lumbar spine were obtained. I was not present. Fluo roscopy exposure time was 1 minute 22 seconds. COMPARISON: Lumbar spine radiographs 12/15/2024 FINDINGS: There are changes of anterior fusion procedure at L4-L5 with interbody device. There are ch anges of posterior fusion procedure from L3 to L5 with pedicle screws. IMPRESSION: 1. Anterior fusion procedure at L4-L5. 2. Posterior fusion procedure from L3 to L5. Reviewed, dictated and finalized at location A.
--- NOTE | ~2025-02-02 | XR_ITS ---
EXAMINATION: XR chest 1V portable DATE: 02/03/2025 10:33 INDICATION: Chest pain. TECHNIQUE: A single frontal view of the chest was obtained. COMPARISON: Chest 2 views 08/21/2019 FINDINGS: A calcified left lung nodule and calcified left hilar lymph nodes are consistent with old g ranulomatous disease. No pleural effusion or pneumothorax. The heart size is normal. IMPRESSION: 1. No acute cardiopulmonary disease. Reviewed, dictated and finalized at location A.
--- OUTSIDE RECORDS SUMMARY | 2025-02-02 00:52 | XMS_ITS | Clinical Summary ---
Author Organization [facility] Address [address] [place] [address] Care Team Providers Care Winding Machine Operator Name Role Phone Unavailable Primary Care Provider [...]
--- OUTSIDE RECORDS SUMMARY | 2025-02-02 00:52 | XMS_ITS | Clinical Summary ---
Author Organization [facility] Address [address] [place] [address] Care Team Providers Care Concrete Spreader Name Role Phone Brian Viveros MD Primary Care Provider + Source Comments [facility],non-owned Affiliates and Associated Physician Practices is amultiple site organization consisting of ambulatory clinics and hospital sitesin [place], [place], [place] and [place]. This disclosure is being madepursuant to the Care Everywhere program and may not contain all information available regarding this patient. Last updated 18.[facility] Social History Tobacco Use Types Packs/Day Years [...] age to complete this topic Care Teams Concrete Spreader Relationship Specialty Start Date End Date Brian Viveros MD [address] [address] PCP - General 12/15/12
--- OUTSIDE RECORDS SUMMARY | 2025-02-02 00:52 | XMS_ITS | Referral Summary ---
Author Organization [facility] [address] Address [address] [place] [address] Care Team Providers Care Portfolio Manager Name Role Phone Brian Viveros MD Primary [...] 40 mg tabletIndicatio ns:Coronary artery disease involving [place] coronary artery of [place] heart without angina pectoris Take 1 tablet [...] artery disease of n ative artery of [place]hes heart with stable angina pectoris 09/29/2019 Presence [...] on file Legal Sex Male 6:23 PM PENETRATION TESTER Gender Identity Male 02/16/2023 8:50 AM CDT Sexual Orientation Straight 02/16/2023 8: 50 AM CDT Last Filed Vital Signs Vital Sign Reading Time Taken Comments Blood Pressure 130/72 09/04/2024 8:17 AM CDT Pulse 58 09/04/2024 8:17 AM CDT Temperature 36.5 C (97.7 F) 01/09/2021 10:57 AM PENETRATION TESTER Respiratory Rate - - Oxygen Saturation 99% 09/04/2024 8:17 AM CDT Inhaled Oxygen Concentration - - Weight 89.4 kg (197 lb) 09/04/2024 8:17 AM CDT Height 177.8 cm (5' 10 ) 09/04/2024 8:17 AM CDT Body Mass Index 28.27 09/04/2024 8:17 AM CDT Plan of Treatment Not on file Insurance MEDICARE [facility] MEDICARE [facility] Care Teams Portfolio Manager Relationship Specialty Start Date End Date Brian Viveros MD [address] [place] [address] PCP - General Family Medicine 08/23/19
--- OUTSIDE RECORDS SUMMARY | 2025-02-02 00:52 | XMS_ITS | Clinical Summary ---
Author Organization [facility] [address] Address [address] [place] [address] Care Team Providers Care Echocardiograph Technician Name Role Phone Brian Viveros MD [...] 40 mg tabletIndicatio ns:Coronary artery disease involving [place] coronary artery of [place] heart without angina pectoris Take 1 tablet [...] artery disease of n ative artery of [place] heart with stable angina pectoris 09/29/2019 Presence [...] on file Legal Sex Male 6:23 PM PANELBOARD TANK PUMPER Gender Identity Male 02/16/2023 8:50 AM CDT Sexual Orientation Straight 02/16/2023 8: 50 AM CDT Obstetrics History Last Filed Vital Signs Vital Sign Reading Time Taken Comments Blood Pressure 130/72 09/04/2024 8:17 AM CDT Pulse 58 09/04/2024 8:17 AM CDT Temperature 36.5 C (97.7 F) 01/09/2021 10:57 AM PANELBOARD TANK PUMPER Respiratory Rate - - Oxygen Saturation 99% [...] HOSPITAL MEDICARE [facility] Care Teams Echocardiograph Technician Relationship Specialty Start Date End Date Brian Viveros MD [address] [place] [address] PCP - General Family Medicine 08/23/19
[2025-02-02] MEDS: LACTATED RINGERS 1,000 ML 30 ML IV CONT ×2 (06:30→13:19)
--- NOTE | 2025-02-02 07:09 | PM.IMHP ---
H&P: HPI History of Present Illness Date/Time: 02/02/25 07:09 Chief Complaint: This is a 74-year-old gentleman with a history of cardiac stent in the early not on any aspirin Plavix or Coumadin who is a nonsmoker and is otherwise healthy he presents with about 4-6 months of low back and leg pain. He explains that the pain shoots down his right leg down the back of his thigh down the back of his calf into his foot. And more lately he also noticed that he has pain in both legs from his back radiating to his hip down the side of his legs to his knees. 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 [facility] Past Medical History Medical History (Updated 12/29/24 @ 13:15 by Jacek Cr MD) Lumbar stenosis with neurogenic claudication Lumbar spondylosis Kidney stones, calcium oxalate Normal colonoscopy 2015 Injury of right hand 2006, severe injury H/O renal calculi with removal 2012 Coronary artery disease Hypertension Pulmonary hypertension Rhinitis Unspecified asthma Central sleep apnea Bipap Surgical History Surgical History S/P appy 196 Stented coronary artery proximal LAD Sep 14, 2019 S/P left knee arthroscopy 2009 H/O left inguinal hernia repair 2011 Family History Family History Mother , age 87, good health No problems noted. Grandparent Acute myocardial infarction Heart disease Grandparent Acute myocardial infarction Heart disease Other Asthma Social History Social History Smoking packs per day: 1 Smoking cigarettes per day: 20.0 Years smoked: 20 Smoking pack-years: 20.00 Smoking status: Former smoker Tobacco type: cigarettes Second hand tobacco smoke exposure: No Smoking end date: 11/08/11 Alcohol intake: never Substance use: never Substance use type: does not use Lack of Transportation: No Lack of Food: Never True Current Housing: I Have Housing Concerned About Future Housing: No Difficulty Paying Gas/Electric Bills: No Difficulty Paying for Meds: No Currently Unemployed: No Education: Trade/Vocational Certificate Difficulty w/ Childcare or Family Care: No Living arrangements: with family Occupation/Education: retired Gender identity (if verbalized by the patient): Male Spiritual care concerns: No Agree to blood products: Yes Meds Home Medications and Allergies Home Medications ?Medication ?Instructions ?Recorded ?Confirmed ?Type nitroglycerin 0.4 mg sublingual 0.4 mg sublingual Q5MIN PRN Chest 09/14/19 01/19/25 Rx tablet (Nitrostat) Pain #25 tabs fluticasone propionate 50 1 spray intranasal DAILY 01/22/21 02/02/25 History mcg/actuation nasal spray,suspension potassium citrate 10 mEq (1,080 2,160 mg PO BID 11/09/23 02/02/25 History mg) tablet,extended release (Urocit-K 10) albuterol sulfate 90 mcg/actuation 2 puff inhalation QID PRN 11/14/24 02/02/25 Rx aerosol inhaler (Ventolin HFA) Shortness Of Breath #8.5 grams alprazolam 0.5 mg tablet (Xanax) 0.5 mg PO BID #180 tabs 11/14/24 02/02/25 Rx atorvastatin 40 mg tablet 40 mg PO DAILY #90 tabs 11/14/24 02/02/25 Rx furosemide 40 mg tablet 40 mg PO QAM #90 tabs 11/14/24 02/02/25 Rx acetaminophen 500 mg tablet 1,000 mg PO Q6H PRN pain 01/19/25 02/02/25 History (Acetaminophen Extra Strength) aspirin 81 mg tablet,delayed 81 mg PO DAILY 01/19/25 01/19/25 History release ibuprofen 200 mg capsule 200 mg PO Q6H PRN pain 01/19/25 02/02/25 History Allergies Allergy/AdvReac Type Severity Reaction Status Date / Time ciprofloxacin Allergy Intermediate RASH Verified 02/02/25 06:11 budesonide (From Symbicort) Allergy Hypertensio Verified 02/02/25 06:11 n formoterol (From Symbicort) Allergy Hypertensio Verified 02/02/25 06:11 n Quinazolinones Allergy Rash Verified 02/02/25 06:11 primidone AdvReac Intermediate Confusion Verified 02/02/25 06:11 propranolol (From Inderal [place]) AdvReac Confusion Verified 02/02/25 06:11 Vital Signs Vital Signs - 24 hr 02/02/25 06:00 Temperature 97.5 F L Pulse Rate 54 L Respiratory Rate 16 Blood Pressure 140/83 Pulse Oximetry 100 Oxygen Delivery Room Air Exam Neuro: Other: awake alert no acute distress MAEW 5/5 without focal motor deficit. Assessment and Plan Assessment and plan (1) Lumbar stenosis with neurogenic claudication: Code(s): M48.062 - Spinal stenosis, lumbar region with neurogenic claudication Status: Acute Plan 74 year old male with severe lumbar degenerative spondylosis at L3/4 and L4/5 who is here for an elective L3/4 and L4/5 PLIF.
--- NOTE | 2025-02-02 07:21 | WPDHPUPDATE1 ---
History and Physical Update Update Date/Time: 02/02/25 07:21 History and Physical has been reviewed, including an updated exam of the patient. There are NO changes in the patient's condition. Risks, benefits, and alternatives have been discussed and questions answered. Patient agrees to proceed with procedure.
--- NOTE | 2025-02-02 07:27 | P.PNAN_ITS ---
Anes - Initial Pre Proc Eval Procedure: Operation Date: 02/02/25 07:30 Proposed Procedures p L3-L4, L4-L5 Posterior Lumbar Interbody Fusion - Jacek Cr MD Date/Time: 02/02/25 07:27 Surgeon: Jacek Cr MD Pre Op Diagnosis: lumbar stenosis Patient Data Age: 74 Gender: M Height: 1.73 m Weight: 85.6 kg Last Vital Signs Temp 97.5 F L 02/02/25 06:00 Pulse 54 L 02/02/25 06:00 Resp 16 02/02/25 06:00 BP 140/83 02/02/25 06:00 Pulse Ox 100 02/02/25 06:00 O2 Del Method Room Air 02/02/25 06:00 Allergies Allergy/AdvReac Type Severity Reaction Status Date / Time ciprofloxacin Allergy Intermediate RASH Verified 02/02/25 06:11 budesonide (From Symbicort) Allergy Hypertensio Verified 02/02/25 06:11 n formoterol (From Symbicort) Allergy Hypertensio Verified 02/02/25 06:11 n Quinazolinones Allergy Rash Verified 02/02/25 06:11 primidone AdvReac Intermediate Confusion Verified 02/02/25 06:11 propranolol (From Inderal [place]) AdvReac Confusion Verified 02/02/25 06:11 Home Medications ?Medication ?Instructions ?Recorded ?Confirmed ?Type nitroglycerin 0.4 mg sublingual 0.4 mg sublingual Q5MIN PRN Chest 09/14/19 01/19/25 Rx tablet (Nitrostat) Pain #25 tabs fluticasone propionate 50 1 spray intranasal DAILY 01/22/21 02/02/25 History mcg/actuation nasal spray,suspension potassium citrate 10 mEq (1,080 2,160 mg PO BID 11/09/23 02/02/25 History mg) tablet,extended release (Urocit-K 10) albuterol sulfate 90 mcg/actuation 2 puff inhalation QID PRN 11/14/24 02/02/25 Rx aerosol inhaler (Ventolin HFA) Shortness Of Breath #8.5 grams alprazolam 0.5 mg tablet (Xanax) 0.5 mg PO BID #180 tabs 11/14/24 02/02/25 Rx atorvastatin 40 mg tablet 40 mg PO DAILY #90 tabs 11/14/24 02/02/25 Rx furosemide 40 mg tablet 40 mg PO QAM #90 tabs 11/14/24 02/02/25 Rx acetaminophen 500 mg tablet 1,000 mg PO Q6H PRN pain 01/19/25 02/02/25 History (Acetaminophen Extra Strength) aspirin 81 mg tablet,delayed 81 mg PO DAILY 01/19/25 01/19/25 History release ibuprofen 200 mg capsule 200 mg PO Q6H PRN pain 01/19/25 02/02/25 History Laboratory Tests 02/02/25 06:30 Blood Type Pending Antibody Screen Pending Patient hx anesthesia problems: none Family hx anesthesia problems: none Results Review: All pre-operative results and documents have been reviewed as part of the pre- operative evaluation. [facility] Past Medical History Medical History (Updated 12/29/24 @ 13:15 by Jacek Cr MD) Lumbar stenosis with neurogenic claudication Lumbar spondylosis Kidney stones, calcium oxalate Normal colonoscopy 2015 Injury of right hand 2006, severe injury H/O renal calculi with removal 2012 Coronary artery disease Hypertension Pulmonary hypertension Rhinitis Unspecified asthma Central sleep apnea Bipap Surgical History Surgical History S/P appy 1961 Stented coronary artery proximal LAD Sep 14, 2019 S/P left knee arthroscopy 2009 H/O left inguinal hernia repair 2011 Family History Family History Mother , age 87, good health No problems noted. Grandparent Acute myocardial infarction Heart disease Grandparent Acute myocardial infarction Heart disease Other Asthma Social History Social History Smoking packs per day: 1 Smoking cigarettes per day: 20.0 Years smoked: 20 Smoking pack-years: 20.00 Smoking status: Former smoker Tobacco type: cigarettes Second hand tobacco smoke exposure: No Smoking end date: 11/08/11 Alcohol intake: never Substance use: never Substance use type: does not use Lack of Transportation: No Lack of Food: Never True Current Housing: I Have Housing Concerned About Future Housing: No Difficulty Paying Gas/Electric Bills: No Difficulty Paying for Meds: No Currently Unemployed: No Education: Trade/Vocational Certificate Difficulty w/ Childcare or Family Care: No Living arrangements: with family Occupation/Education: retired Gender identity (if verbalized by the patient): Male Spiritual care concerns: No Agree to blood products: Yes Anes - Eval Final PreProcedure Day of Procedure 02/02/25 07:27 Patient weight: normal Heart: regular rate and rhythm Lungs: clear to auscultation Airway: Mallampati scale class II Neurological: alert and oriented Last oral intake: >/= 8 hours ASA classification: III Emergent: no Anesthetic plan: proceed Anesthesia type and monitoring: general ETT and standard monitoring Results Review: All pre-operative results and documents have been reviewed as part of the pre- operative evaluation. Informed Consent: The patient's anesthetic plan and its attendant risks and benefits were discussed with the patient/family/POA. Questions were solicited and answers provided to the satisfaction of the patient/family/POA.
[2025-02-02] MEDS: ceFAZolin 2 GM/D5W 50 ML 2 GM/50 ML BAG IVPB ×3 (07:33→23:18)
[2025-02-02] MEDS: BUPIVACAINE/EPINEPHRINE 0.5% 50 ML VIAL 30 ML INFILTRATE (08:35)
[2025-02-02] MEDS: ceFAZolin SODIUM 1 GM VIAL IV PUSH (12:16)
--- NOTE | 2025-02-02 13:31 | W.PM.PROC2 ---
Procedure Note - Detailed Date of Procedure 02/02/25 Pre-op Diagnosis lumbar stenosis Post-op Diagnosis Same Procedure Performed L3-5 posterior lumbar fusion L4-5 interbody fusion Complete laminectomy including removal of the lamina pars and foraminotomy at L4-5, L3-4 Placement of interbody cage at L4-5 on the left side with CoreLink F 3D cages and Orthofix and XG screws. Surgeon Jacek Cr MD Anesthesia General Description of Procedure The patient was turned over to Anesthesia for intubation and placement of all lines. Once this was complete the patient was flipped prone onto the open Luisito table. All bony prominences were padded and and we made sure that the patient was positioned appropriately. Following this I took a lateral fluoroscopy to ludmila the L3, L5 pedicles and planned an incision accordingly. The patient was then prepped and draped in the usual sterile fashion. Following this I made his midline skin incision with a scalpel and used Bovie to cut through the fat and soft tissue. I made my way down to the fascia which was opened with the Bovie electrocautery. At this point I used subperiosteal dissection to dissect muscle and tissue off of the spinous process and lamina bilaterally all the way out to the transverse processes from L3-L5. The retractors were replaced and hemostasis was obtained. At this point I began placement of all pedicle screws. IA use lateral fluoroscopy to identify the trajectory from L3-L5 5. I placed all the pedicle screws using anatomical guidance and a ball-tip probe to feel the tract prior to tapping and placing the screw. At the time it appeared that all screws palpated appropriately and there was no medial or lateral breaches however upon taking AP fluoroscopy I felt that the right L4 screw was too medial as well as the left L3 screw. Both of these were screws removed and the tract was palpated found to be medial. I then replaced the screws more the lateral starting point. I then moved onto the decompression portion the case I did drill trough laminectomies at L3 through 5. I then disconnected the pars bilaterally using out in technique. The facet was removed at the sections and saved later for arthrodesis. I then carefully removed the center portion of the lamina remaining with a rongeur. I then carefully used an upgoing curette to dissect underneath the remaining bone to remove additional bone. Unfortunately there was a dural tear on bilaterally at the L3 disc space. There was significantly adherent ligament and calcified ligament on the patient's right side at L3. I was unable to remove this and I had to repair that leaks with a Surgilon stitch. Once this was complete I then asked my anesthesia colleagues to perform a Valsalva and there was no leak identified. Because of the leak I decided not to put a cage at the L3-4 inner body segment. I moved onto dissection on the left side at L4-5. I then cut into the disc space with a nerve root retracted by my assistant corporate secretary and removed any disc at the L4-5 disc space. I then scraped away any remaining disc with a series of curettes. Following this I placed a 9 mm trial into the space and took an x-ray. The trial seemed in place. It also seems very rigid upon movement. As such I removed the trial and placed a 9 mm 22 by 7 degree cage under fluoroscopic guidance. At this point this was removed the wound was copiously irrigated and I then moved onto arthrodesis and decorticated the transverse processes and placed autograft in the lateral recess. I then placed a maryam into the [place] heads at the L3-5 bilaterally. I put set screws at L3 and L5. Once this was completed I used a tower reduction at L4 to carefully bring L4 up to reduce the spondylolisthesis. All set screws were then final tightened. At this point I placed DuraSeal over the L3-4 region. Following this I placed a seps subcutaneous drain. Hemostasis was vigorously again obtained and the wound was then closed in layers. Patient was then turned over to Anesthesia for extubation. Estimated Blood Loss 700 Complications Other complications (CSF leak, medially placed screws requiring replacement.) Condition Stable [facility] Billing Surgery - Charge Forward: Surgery Billing
[2025-02-02] MEDS: fentaNYL CITRATE INJ (*CRX) 100 MCG/2 ML VIAL 25 MCG IV PUSH ×4 (13:38→13:53)
[2025-02-02] MEDS: HYDROmorphone HCL INJ (*CRX) 1 MG/ML SYR 0.25 MG IV PUSH ×8 (13:59→14:45)
--- NOTE | 2025-02-02 14:17 | SUR.PHASEI ---
1410 - Dr. Cr at bedside, assessing pt. pt aware of need to lie flat until tomorrow morning. neuro assessment WNL.
--- NOTE | 2025-02-02 14:53 | PCPTNOTE ---
HOLD PT evaluation due to dural tear.
--- NOTE | 2025-02-02 15:19 | ADMGEN ---
This patient, Stephane Blackburn, was admitted to -. Patient/family oriented to hospital policies and general routines including ID bracelet, bed and alarms, visiting hours, pain management, procedures, bathroom and other care routines, personal items, smoking policy, room service/diet, and visiting hours. Information on how to activate the Rapid Response Team has been discussed. Patient/Family are encouraged to report perceived risks to care and to ask questions if they do not understand what they are told or what they should do.
[2025-02-02] MEDS: HYDROmorphone HCL INJ (*CRX) 1 MG/ML SYR 0.5 MG IV PUSH ×2 (15:48→21:28)
[2025-02-02] MEDS: POTASSIUM CITRATE 5 MEQ TAB CR 20 MEQ PO (17:30)
[2025-02-02] MEDS: ALPRAZolam (*CRX) 0.5 MG TABLET PO (17:31)
[2025-02-02] MEDS: HYDROcodone/acetaminophen (*CRX) 10-325 MG TABLET 1 TAB PO ×2 (17:38→23:19)
--- OUTSIDE RECORDS SUMMARY | 2025-02-02 17:59 | XMS_ITS | Clinical Summary ---
Author Organization [facility] Address [address] [place] [address] Care Team Providers Care Executive Advisor Name Role Phone Brian Viveros MD Primary Care Provider + Source Comments [facility],non-owned Affiliates and Associated Physician Practices is amultiple site organization consisting of ambulatory clinics and hospital sitesin [place], [place], [place] and [place]. This disclosure is being madepursuant to the Care Everywhere program and may not contain all information available regarding this patient. Last updated 18.[facility] Social History Tobacco Use Types Packs/Day Years [...] age to complete this topic Care Teams Executive Advisor Relationship Specialty Start Date End Date Brian Viveros MD [address] [address] PCP - General 12/15/12
--- OUTSIDE RECORDS SUMMARY | 2025-02-02 17:59 | XMS_ITS | Referral Summary ---
Author Organization [facility] [place] [address] Address [address] [place] [address] Care Team Providers Care Property Clerk Name Role Phone Brian Viveros MD Primary [...] 40 mg tabletIndicatio ns:Coronary artery disease involving [place] coronary artery of [place] heart without angina pectoris Take 1 tablet [...] artery disease of n ative artery of [place] heart with stable angina pectoris 09/29/2019 Presence [...] on file Legal Sex Male 6:23 PM EMERGENCY MANAGEMENT SPECIALIST Gender Identity Male 02/16/2023 8:50 AM CDT Sexual Orientation Straight 02/16/2023 8: 50 AM CDT Last Filed Vital Signs Vital Sign Reading Time Taken Comments Blood Pressure 130/72 09/04/2024 8:17 AM CDT Pulse 58 09/04/2024 8:17 AM CDT Temperature 36.5 C (97.7 F) 01/09/2021 10:57 AM EMERGENCY MANAGEMENT SPECIALIST Respiratory Rate - - Oxygen Saturation 99% 09/04/2024 8:17 AM CDT Inhaled Oxygen Concentration - - Weight 89.4 kg (197 lb) 09/04/2024 8:17 AM CDT Height 177.8 cm (5' 10 ) 09/04/2024 8:17 AM CDT Body Mass Index 28.27 09/04/2024 8:17 AM CDT Plan of Treatment Not on file Insurance MEDICARE [facility] MEDICARE [facility] Care Teams Property Clerk Relationship Specialty Start Date End Date Brian Viveros MD [address] [place] [address] PCP - General Family Medicine 08/23/19
--- OUTSIDE RECORDS SUMMARY | 2025-02-02 17:59 | XMS_ITS | Clinical Summary ---
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 Gender Identity Male 02/16/2023 8:50 AM CDT Sexual Orientation Straight 02/16/2023 8: 50 AM CDT Obstetrics History Last Filed Vital Signs Vital Sign Reading Time Taken Comments Blood Pressure 130/72 09/04/2024 8:17 AM CDT Pulse 58 09/04/2024 8:17 AM CDT Temperature 36.5 C (97.7 F) 01/09/2021 10:57 AM COMPLIANCE ATTORNEY Respiratory Rate - - Oxygen Saturation 99% [...] (#1) 2024 9, 08/29/2018, 08/22/2017 Insurance MEDICARE [facility] MEDICARE [facility] Care Teams Mutual Fund Sales Agent Relationship Specialty Start Date End Date Brian Viveros MD [address] [place] [address] PCP - General Family Medicine 08/23/19
--- OUTSIDE RECORDS SUMMARY | 2025-02-02 17:59 | XMS_ITS | Clinical Summary ---
Author Organization [facility] Address [address] [place] [id number] Care Team Providers Care Ceramic Worker Name Role Phone Unavailable Primary Care Provider [...]
[2025-02-02] MEDS: DOCUSATE SODIUM 100 MG CAPSULE PO (21:29)
[2025-02-03] VITALS (8 sets, daily range): BP systolic 114–142; BP diastolic 71–95; PULSE 60–75; RESP 14–20; TEMP 36.5–37.2; O2SAT 96–100
[2025-02-03] MEDS: HYDROmorphone HCL INJ (*CRX) 1 MG/ML SYR 0.5 MG IV PUSH ×3 (01:25→08:09)
[2025-02-03] MEDS: ceFAZolin 2 GM/D5W 50 ML 2 GM/50 ML BAG IVPB (08:12)
[2025-02-03] MEDS: DOCUSATE SODIUM 100 MG CAPSULE PO ×2 (08:13→20:44)
[2025-02-03] MEDS: ASPIRIN 81 MG ENTERIC TABLET PO (08:13)
[2025-02-03] MEDS: POTASSIUM CITRATE 5 MEQ TAB CR 20 MEQ PO ×2 (08:13→16:45)
[2025-02-03] MEDS: FUROSEMIDE 40 MG TABLET PO (08:13)
[2025-02-03] MEDS: ATORVASTATIN 40 MG TABLET PO (08:13)
--- NOTE | 2025-02-03 08:13 | PCPTNOTE ---
Patient still has bed rest orders from dural tear. Will see patient after he is cleared by surgeon.
[2025-02-03] MEDS: ALPRAZolam (*CRX) 0.5 MG TABLET PO ×2 (08:14→16:45)
[2025-02-03] MEDS: HYDROcodone/acetaminophen (*CRX) 10-325 MG TABLET 1 TAB PO ×2 (08:45→15:38)
[2025-02-03] MEDS: IBUPROFEN 200 MG TABLET PO ×2 (08:46→15:36)
--- NOTE | 2025-02-03 09:18 | ECG_ITS ---
Test Date: 2025-02-03 09:37:15 Measurements Intervals [place] Rate: 64 P: 82 [place]: 133 QRS: 17 QRSD: 95 T: 0 QT: 285 QTc: 296 Interpretive Statements SINUS RHYTHM NONSPECIFIC ST AND T-WAVE ABNORMALITY ABNORMAL ECG Electronically Signed On 02-03-2025 10:06:51 CDT by Chu Gómez M.D.
[2025-02-03 11:06] LABS: Basophils Percent Auto 0.2 % (0.2-1.2); Hematocrit 29.6 % (42.0-52.0); Hemoglobin 9.8 g/dL (14.0-18.0); Immature Granulocyte Absolute 0.04 K/mm3 (0.00-0.031); Immature Granulocyte Percent A 0.4 % (0-0.5); Lymphocytes Percent Auto 8.1 % (18.3-44.2); Mean Corpuscular HGB Conc 33.1 g/dl (32-36); Mean Corpuscular Hemoglobin 34.6 pg (26-34); Mean Corpuscular Volume 104.6 fl (80-100); Mean Platelet Volume 9.4 fl (7.4-10.4); Monocytes Absolute Auto 1.4 K/mm3 (0.1-0.6); Monocytes Percent Auto 13.8 % (2.6-8.5); Neutrophils Absolute Auto 7.6 K/mm3 (1.3-6.7); Neutrophils Percent Auto 77.5 % (45.5-73.1); Platelet Count Result 140 k/mm3 (150-375); Red Blood Count 2.83 M/mm3 (4.6-6.20); Red Cell Distribution Width 12.6 % (11.5-14.5); White Blood Count 9.8 K/mm3 (4.5-10.0)
[2025-02-03 11:21] LABS: Alanine Aminotransferase 25 U/L (6-50); Albumin Level 3.6 g/dL (3.5-5.1); Alkaline Phosphatase 63 U/L (38-126); Anion Gap 10 mmol/L (4-12); Aspartate Amino Transferase 47 U/L (17-59); Bilirubin,Total 0.8 mg/dL (0.2-1.3); Blood Urea Nitrogen 22 mg/dL (9-20); CRP 1.6 mg/dL (<1.0); Calcium 8.5 mg/dL (8.4-10.2); Carbon Dioxide 25 mmol/L (22-30); Chloride 99 mmol/L (98-107); Estimated CRCL calculation 60 ml/min; Estimated Glomerular Filt Rate > 60; Glucose 115 mg/dL (65-110); Phosphorus 2.6 mg/dL (2.5-4.5); Potassium 4.1 mmol/L (3.4-5.0); Sodium 134 mmol/L (137-145)
[2025-02-03 11:28] LABS: Troponin I < 0.012 ng/mL (0.000-0.034)
--- NOTE | 2025-02-03 11:37 | PCOTNOTE ---
Attempted OT evaluation. Per RN pt. has dural tear and is currently only tolerating sitting up to 15 degrees. He complained of chest and neck pain when moved up to 30 degrees. Hold for today as pt. is unable to get out of bed at this time. Will continue to follow.
--- NOTE | 2025-02-03 12:25 | PM.IMCN ---
Assessment and Plan Assessment and plan (1) Coronary artery disease: Code(s): I25.10 - Atherosclerotic heart disease of [place] coronary artery without angina pectoris Status: Acute (2) Lumbar stenosis with neurogenic claudication: Code(s): M48.062 - Spinal stenosis, lumbar region with neurogenic claudication Status: Acute (3) Wheezing: Code(s): R06.2 - Wheezing Status: Acute (4) Postoperative anemia: Code(s): D64.9 - Anemia, unspecified Status: Acute (5) Hypertension: Code(s): I10 - Essential (primary) hypertension Status: Acute (6) Pulmonary hypertension: Code(s): I27.20 - Pulmonary hypertension, unspecified Status: Acute Plan Patient with acute onset neck pain that radiated down to upper back then involving the chest. EKG showing flattened T waves in the high lateral leads which is new from EKG earlier this month. Troponin negative. CXR clear; no evidence of widened mediastinum. Consider neck muscle spasm. Consider ischemic chest pain but felt less likely. Not likely symptoms for PE. Chest pain could be referred pain from the neck/back pain. On ASA and Lipitor. Repeat EKG to see if these changes improve again. Place on tele. Patient s/p lumbar fusion and laminectomy. Slowly increasing his incline. PT/OT ordered. Wheezing noted on exam. He has a hx of asthma. Hgb has dropped 3gm to 9.8 felt related to the surgery. Also with macrocytosis so will proceed with anemia workup as well. BP well controlled. Continue current medications. DVT prophylaxis - SCDs Code status - full Thank you so much for allowing me to take part in the care of your patient. HPI Date of Consult Consult date: 02/03/25 Requesting Physician: Jacek Cr MD Primary Care Provider: Brian Viveros MD Consult Narrative Reason for consult: Chest Pain Narrative: Stephane Blackburn is a 74 year old male with CAD and HTN here for elective lumbar surgery who developed chest pain in the post-operative period. Patient has had 4-6 months of worsening low back pain and sciatic symptoms. Lumbar MRI showing larger right L3-4 synovial cyst and Grade 1-2 spondylosis L4-5. He was evaluated by neurosurgery, admitted and underwent L3-5 posterior lumbar fusion, L4-5 interbody fusion and a complete laminectomy including removal of the lamina pars and foraminotomy at L4-5, L3-4 with placement of interbody cage at L4-5 on the left side with CoreLink F 3D cages and Orthofix and XG screws on 02/02. Patient has been bed rest lying flat for 12 hours post-operatively. This morning, nursing have been slowly increasing his incline per surgery instructions. He developed acute onset of posterior neck pain described as sharp. The pain moved to between his scapula that was associated with new onset substernal chest pain that radiated to his left arm. No SOB. He feels nauseous but this ahs been since the surgery. No vomiting, abdominal pain or diarrhea. No fever, chills, dysuria or hematuria. Not sure if palpable or pleuritic. He has CAD s/p LAD stent in 2019. His last stress test was about 4 years ago. He denies chest pain at home but is not very active. Neck and chest pain lasted about 10-15 minutes. Stat EKG was obtained. Neurosurgery was called. Hospitalist service was consulted. NTG was offered but patient refused. Review of Systems Review of Systems: All systems reviewed & are unremarkable except as noted in HPI and below PMFSH Past Medical History Medical History Lumbar stenosis with neurogenic claudication Lumbar spondylosis Kidney stones, calcium oxalate Normal colonoscopy 2015 Injury of right hand 2006, severe injury H/O renal calculi with removal 2012 Coronary artery disease Hypertension Pulmonary hypertension Rhinitis Unspecified asthma Central sleep apnea Bipap Surgical History Surgical History History of lumbar spinal fusion (01/2025) S/P appy 196 Stented coronary artery proximal LAD Sep 14, 2019 S/P left knee arthroscopy 2009 H/O left inguinal hernia repair 2011 Family History Family History Mother , age 87, good health No problems noted. Grandparent Acute myocardial infarction Heart disease Grandparent Acute myocardial infarction Heart disease Other Asthma Social History Social History (Updated 02/03/25 @ 12:40 by Hermelindo Meraz MD) Social History: Lives with . Ex-smoker. No alcohol. Code status - full Surrogate decision maker - Smoking packs per day: 1 Smoking cigarettes per day: 20.0 Years smoked: 20 Smoking pack-years: 20.00 Smoking status: Former smoker Second hand tobacco smoke exposure: No Alcohol intake: never Substance use: never Substance use type: does not use Do You Feel Safe in your Home?: Yes Lack of Transportation: No Lack of Food: Never True Current Housing: I Have Housing Concerned About Future Housing: No Difficulty Paying Gas/Electric Bills: No Difficulty Paying for Meds: No Currently Unemployed: No Education: Trade/Vocational Certificate Difficulty w/ Childcare or Family Care: No Living arrangements: with family Additional living arrangements comments: Occupation/Education: retired Gender identity (if verbalized by the patient): Male Spiritual care concerns: No Agree to blood products: Yes Meds Home Medications and Allergies Home Medications ?Medication ?Instructions ?Recorded ?Confirmed ?Type nitroglycerin 0.4 mg sublingual 0.4 mg sublingual Q5MIN PRN Chest 09/14/19 01/19/25 Rx tablet (Nitrostat) Pain #25 tabs fluticasone propionate 50 1 spray intranasal DAILY 01/22/21 02/02/25 History mcg/actuation nasal spray,suspension potassium citrate 10 mEq (1,080 2,160 mg PO BID 11/09/23 02/02/25 History mg) tablet,extended release (Urocit-K 10) albuterol sulfate 90 mcg/actuation 2 puff inhalation QID PRN 11/14/24 02/02/25 Rx aerosol inhaler (Ventolin HFA) Shortness Of Breath #8.5 grams alprazolam 0.5 mg tablet (Xanax) 0.5 mg PO BID #180 tabs 11/14/24 02/02/25 Rx atorvastatin 40 mg tablet 40 mg PO DAILY #90 tabs 11/14/24 02/02/25 Rx furosemide 40 mg tablet 40 mg PO QAM #90 tabs 11/14/24 02/02/25 Rx acetaminophen 500 mg tablet 1,000 mg PO Q6H PRN pain 01/19/25 02/02/25 History (Acetaminophen Extra Strength) aspirin 81 mg tablet,delayed 81 mg PO DAILY 01/19/25 01/19/25 History release ibuprofen 200 mg capsule 200 mg PO Q6H PRN pain 01/19/25 02/02/25 History cyclobenzaprine 5 mg tablet 5 mg PO HS #30 tabs 02/02/25 Rx oxycodone 5 mg tablet 5 mg PO Q4H PRN pain #32 tabs 02/02/25 Rx sennosides 8.6 mg tablet (senna) 8.6 mg PO BID PRN constipation #30 02/02/25 Rx tabs Allergies Allergy/AdvReac Type Severity Reaction Status Date / Time ciprofloxacin Allergy Intermediate RASH Verified 02/02/25 06:11 budesonide (From Symbicort) Allergy Hypertensio Verified 02/02/25 06:11 n formoterol (From Symbicort) Allergy Hypertensio Verified 02/02/25 06:11 n Quinazolinones Allergy Rash Verified 02/02/25 06:11 primidone AdvReac Intermediate Confusion Verified 02/02/25 06:11 propranolol (From Inderal [place]) AdvReac Confusion Verified 02/02/25 06:11 Vital Signs Vital Signs - 24 hr 02/02/25 13:19 02/02/25 13:30 02/02/25 13:45 Temperature 98.7 F Pulse Rate 67 66 63 Respiratory Rate 12 15 12 Blood Pressure 118/63 112/62 125/76 Pulse Oximetry 100 100 100 Oxygen Delivery Simple Face Mask Simple Face Mask Simple Face Mask Oxygen Flow Rate 8 8 8 02/02/25 14:00 02/02/25 14:15 02/02/25 14:30 Temperature Pulse Rate 69 67 74 Respiratory Rate 20 12 18 Blood Pressure 125/76 126/84 116/87 Pulse Oximetry 100 100 94 Oxygen Delivery Simple Face Mask Room Air Room Air Oxygen Flow Rate 8 02/02/25 14:45 02/02/25 15:00 02/02/25 15:25 Temperature 97.4 F L Pulse Rate 77 82 76 Respiratory Rate 14 18 19 Blood Pressure 132/72 122/81 132/77 Pulse Oximetry 100 97 100 Oxygen Delivery Room Air Room Air Oxygen Flow Rate 02/02/25 15:40 02/02/25 16:21 02/02/25 17:00 Temperature 97.3 F L 97.4 F L Pulse Rate 79 78 Respiratory Rate 19 19 Blood Pressure 132/84 134/76 Pulse Oximetry 100 98 96 Oxygen Delivery Room Air Oxygen Flow Rate 02/02/25 20:21 02/03/25 00:21 02/03/25 03:41 Temperature 97.8 F 97.8 F 97.7 F Pulse Rate 70 60 63 Respiratory Rate 20 20 18 Blood Pressure 124/68 114/71 129/78 Pulse Oximetry 100 100 100 Oxygen Delivery Oxygen Flow Rate 02/03/25 08:27 Temperature 98.2 F Pulse Rate 66 Respiratory Rate 18 Blood Pressure 142/71 H Pulse Oximetry 99 Oxygen Delivery Oxygen Flow Rate Exam Narrative: AF 98.2 142/71 66 18 99% ra Gen - well appearing male in no acute respiratory distress who is nontoxic-appearing lying semi recumbent in bed HEENT - normocephalic. Atraumatic. Pupils equal round and reactive. Extraocular motions intact. Sclera clear and anicteric. Nares patent. Oropharynx with mild bruising noted. No oral lesions. Moist mucous membranes. Tongue was midline. Palate janeth symmetrically. No facial asymmetry. Neck - neck was supple. No dominant adenopathy, thyromegaly or masses. 2+ carotid upstrokes Chest - a few scattered wheezes CV - heart was regular rate and rhythm. S1-S2. No murmurs gallops or rubs. Abd - abdomen was soft. Nontender. Nondistended. Positive bowel sounds. No organomegaly or masses. - Hill secured draining clear yellow urine Back - lumbar area not visualized. Drain in place with dark blood in container Ext - no clubbing, cyanosis or edema. 2+ DP pulses bilaterally. Neuro - patient is alert and oriented x4. Strength is 5/5 in both upper and lower extremities except weakness to the right dorsiflexion. Cranial nerves 2-12 are intact. Speech is clear. Psych - normal mood and affect. Patient is pleasant and cooperative. Skin - warm and dry. No rashes noted. Results Labs 02/03/25 10:43 02/03/25 10:44 Labs: Short CBC 02/03/25 Range/Units 10:43 WBC 9.8 (4.5-10.0) K/mm3 Hgb 9.8 L (14.0-18.0) g/dL Hct 29.6 L (42.0-52.0) % Plt Count 140 L (150-375) k/mm3 [facility] 02/03/25 10:44 Sodium 134 L Potassium 4.1 Chloride 99 Carbon Dioxide 25 BUN 22 H Creatinine 1.02 Glucose 115 H Calcium 8.5 Cardiac Enzymes 03/29/25 Range/Units 10:44 Troponin I < 0.012 (0.000-0.034) ng/mL Liver Function 02/03/25 Range/Units 10:44 Total Bilirubin 0.8 (0.2-1.3) mg/dL AST 47 (17-59) U/L ALT 25 (6-50) U/L Alkaline Phosphatase 63 (38-126) U/L Albumin 3.6 (3.5-5.1) g/dL Hospitalist MIPS Advance Care Plan I have confirmed that the patient's Advanced Care Plan is present, code status is documented, or surrogate decision maker is listed in patient medical record.: Yes Medication Reconciliation I have utilized all available resources to obtain, update and review the patients current medications (includes all prescriptions, OTC, herbals, cannabis, and nutritional supplements).: Yes
--- NOTE | 2025-02-03 12:58 | ECG_ITS ---
Test Date: 2025-02-03 13:49:28 Measurements Intervals [place] Rate: 68 P: 34 [place]: 113 QRS: 8 QRSD: 93 T: -41 QT: 368 QTc: 393 Interpretive Statements SINUS RHYTHM WITH SHORT [place] INTERVAL NONSPECIFIC T-WAVE ABNORMALITY ABNORMAL ECG Compared to ECG 02/03/2025 09:37:15 Short [place] interval now present Electronically Signed On 02-03-2025 15:43:25 CDT by Chu Gómez M.D.
[2025-02-03 13:50] LABS: Troponin I 0.013 ng/mL (0.000-0.034)
--- NOTE | 2025-02-03 14:49 | WPDNEUROSGPN ---
Progress Note: A&P Assessment and Plan (1) Lumbar stenosis with neurogenic claudication: Code(s): M48.062 - Spinal stenosis, lumbar region with neurogenic claudication Status: Acute Assessment and Plan: Patient is neurologically stable post lumbar decompression and fusion Continue to mobilize Appreciate hospitalist input Pain controlled D/C Sergio this afternoon PT/OT to see Anticipate likely d/c in am 02/04 assuming hospitalist workup is not concerning. Time Spent With Patient Time with patient: less than 15 minutes Subjective Date/time seen: 02/03/25 14:49 Interval history: POD#1 s/p lumbar decompression and fusion L3-5 c/b CSF leak repaired primarily Patient with some nausea and complaint of bilateral chest pain this am Hemodynamically stable Appreciate hospitalist input EKG without overt ischemic changes and initial troponin not elevated Patient has not been symptomatic since that one incident this am Tolerated transfer from bed to chair under my guidance No headache, no nausea, dressing clean and dry Hemovac output 75 cc overnight Exam Narrative: Awake, alert oriented x 3 Speech CF [place]RA[place] EOMI Face= TML MAEW with good strength Dressing CDI Objective Data Vital Signs Vital Signs: Vital Signs - 24 hr 02/02/25 15:00 02/02/25 15:25 02/02/25 15:40 Temperature 36.3 C L 36.3 C L Pulse Rate 82 76 79 Respiratory Rate 18 19 19 Blood Pressure 122/81 132/77 132/84 Pulse Oximetry 97 100 100 Oxygen Delivery Room Air 02/02/25 16:21 02/02/25 17:00 02/02/25 20:21 Temperature 36.3 C L 36.6 C Pulse Rate 78 70 Respiratory Rate 19 20 Blood Pressure 134/76 124/68 Pulse Oximetry 98 96 100 Oxygen Delivery Room Air 02/03/25 00:21 02/03/25 03:41 02/03/25 08:27 Temperature 36.6 C 36.5 C 36.8 C Pulse Rate 60 63 66 Respiratory Rate 20 18 18 Blood Pressure 114/71 129/78 142/71 H Pulse Oximetry 100 100 99 Oxygen Delivery 02/03/25 13:44 Temperature 36.5 C Pulse Rate 64 Respiratory Rate 16 Blood Pressure 128/78 Pulse Oximetry 100 Oxygen Delivery Intake/Output Intake/Output: Intake & Output 01/31/25 02/01/25 02/02/25 02/03/25 23:59 23:59 23:59 23:59 Intake Total 950 720 Output Total 1465 Balance 950 -785 Meds/Results Medications: Active Medications Generic Name Dose Route Start Last Admin Trade Name Freq PRN Reason Stop Dose Admin Acetaminophen 1,000 mg 02/02/25 15:10 Acetaminophen 500 Mg Tablet PO Q6H PRN pain 1-3 Hydrocodone Bitart/Acetaminophen 1 tab 02/02/25 13:21 02/03/25 08:45 Hydrocodone/Acetaminophen (*Crx) 10-325 Mg Tablet PO 1 tab Q4H PRN Administration Moderate Pain (4-6) Al Hydrox/Mg Hydrox/Simethicone 20 ml 02/02/25 13:21 Mag Hydrox/Al Hydrox/Simeth 30 Ml Udc PO Q4H PRN Indigestion/Heartburn Albuterol 2 puff 02/02/25 15:10 Albuterol Sulfate (*Sp) Aerosol 1 Puff INHALATION Q6HRT PRN Shortness Of Breath Alprazolam 0.5 mg 02/02/25 17:00 02/03/25 08:14 Alprazolam (*Crx) 0.5 Mg Tablet PO 0.5 mg BID NEIL Administration Aspirin 81 mg 02/03/25 09:00 02/03/25 08:13 Aspirin 81 Mg Enteric Tablet PO 81 mg DAILY NEIL Administration Atorvastatin Calcium 40 mg 02/03/25 09:00 02/03/25 08:13 Atorvastatin 40 Mg Tablet PO 40 mg DAILY NEIL Administration Bisacodyl 10 mg 02/02/25 13:21 Bisacodyl 10 Mg Suppository RECTAL DAILY PRN Constipation Cyclobenzaprine HCl 10 mg 02/02/25 13:21 Cyclobenzaprine Hcl 10 Mg Tablet PO TID PRN Muscle Spasms Docusate Sodium 100 mg 02/02/25 21:00 02/03/25 08:13 Docusate Sodium 100 Mg Capsule PO 100 mg Q12HR NEIL Administration Fluticasone Propionate 1 spray 02/03/25 09:00 Fluticasone Propionate 0.05% Na Spr 16 Gm Btl (*Bkc) NASAL DAILY NEIL Furosemide 40 mg 02/03/25 09:00 02/03/25 08:13 Furosemide 40 Mg Tablet PO 40 mg QAM NEIL Administration Hydromorphone HCl 0.5 mg 02/02/25 13:21 02/03/25 08:09 Hydromorphone Hcl Inj (*Crx) 1 Mg/Ml Syr IV PUSH 0.5 mg Q2H PRN Administration Pain Rated 7-10 Cefazolin Sodium 2 gm in 50 mls @ 100 mls/hr 02/02/25 16:00 02/03/25 08:12 Ancef 2 Gm/D5w 50 Ml IVPB 100 mls/hr Q8H NEIL Administration Ibuprofen 200 mg 02/02/25 15:20 02/03/25 08:46 Ibuprofen 200 Mg Tablet PO 200 mg Q6H PRN Administration pain Nitroglycerin 0.4 mg 02/02/25 15:10 Nitroglycerin Sl 0.4 Mg Tablet SUBLINGUAL Q5MIN PRN Chest Pain Ondansetron HCl 4 mg 02/02/25 13:21 Ondansetron Inj 4 Mg/2 Ml Vial IV PUSH Q8H PRN Nausea And Vomiting Potassium Citrate 20 meq 02/02/25 17:00 02/03/25 08:13 Potassium Citrate 5 Meq Tab Cr PO 20 meq BID NEIL Administration Senna/Docusate Sodium 1 tab 02/02/25 13:21 Senna/Docusate Sodium Tablet PO HS PRN Constipation Radiology Results: ITS Impressions Fluoroscopy 02/02/25 14:12 IMPRESSION: 1. Anterior fusion procedure at L4-L5. 2. Posterior fusion procedure from L3 to L5. Chest X-Ray 02/03/25 11:20 IMPRESSION: 1. No acute cardiopulmonary disease. Labs Labs: Laboratory Results - last 24 hr 02/03/25 02/03/25 02/03/25 10:43 10:44 13:21 WBC 9.8 RBC 2.83 L Hgb 9.8 L Hct 29.6 L MCV 104.6 H MCH 34.6 H MCHC 33.1 RDW 12.6 Plt Count 140 L MPV 9.4 Immature Gran % (Auto) 0.4 Neut % (Auto) 77.5 H Lymph % (Auto) 8.1 L Warrick % (Auto) 13.8 H Eos % (Auto) 0.0 Baso % (Auto) 0.2 Lymph # (Auto) 0.80 L Warrick # (Auto) 1.4 H Eos # (Auto) 0.0 Baso # (Auto) 0.0 Abs Immat Gran (auto) 0.04 H Absolute Neuts (auto) 7.6 H Absolute Nucleated RBC 0.000 Nucleated RBC % 0.0 Sodium 134 L Potassium 4.1 Chloride 99 Carbon Dioxide 25 Anion Gap 10 BUN 22 H Creatinine 1.02 Estim Creat Clear Calc 60 Estimated GFR > 60 Glucose 115 H Calcium 8.5 Phosphorus 2.6 Magnesium 2.0 Total Bilirubin 0.8 AST 47 ALT 25 Alkaline Phosphatase 63 Troponin I < 0.012 0.013 C-Reactive Protein 1.6 H Total Protein 7.0 Albumin 3.6
--- OUTSIDE RECORDS SUMMARY | 2025-02-03 15:00 | XMS_ITS | Clinical Summary ---
Author Organization [facility] Address [address] [place] [id number] Care Team Providers Care Customs Examiner Name Role Phone Unavailable Primary Care Provider [...]
--- OUTSIDE RECORDS SUMMARY | 2025-02-03 15:00 | XMS_ITS | Clinical Summary ---
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 Gender Identity Male 02/16/2023 8:50 AM CDT Sexual Orientation Straight 02/16/2023 8: 50 AM CDT Obstetrics History Last Filed Vital Signs Vital Sign Reading Time Taken Comments Blood Pressure 130/72 09/04/2024 8:17 AM CDT Pulse 58 09/04/2024 8:17 AM CDT Temperature 36.5 C (97.7 F) 01/09/2021 10:57 AM ASSISTANT FINANCIAL ACCOUNTANT Respiratory Rate - - Oxygen Saturation 99% [...] (#1) 2024 9, 08/29/2018, 08/22/2017 Insurance MEDICARE [facility] MEDICARE [facility] Care Teams Dowel Inspector Relationship Specialty Start Date End Date Brian Viveros MD [address] [place] [address] PCP - General Family Medicine 08/23/19
--- OUTSIDE RECORDS SUMMARY | 2025-02-03 15:00 | XMS_ITS | Referral Summary ---
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 Gender Identity Male 02/16/2023 8:50 AM CDT Sexual Orientation Straight 02/16/2023 8: 50 AM CDT Last Filed Vital Signs Vital Sign Reading Time Taken Comments Blood Pressure 130/72 09/04/2024 8:17 AM CDT Pulse 58 09/04/2024 8:17 AM CDT Temperature 36.5 C (97.7 F) 01/09/2021 10:57 AM MICROSOFT INFRASTRUCTURE CONSULTANT Respiratory Rate - - Oxygen Saturation 99% 09/04/2024 8:17 AM CDT Inhaled Oxygen Concentration - - Weight 89.4 kg (197 lb) 09/04/2024 8:17 AM CDT Height 177.8 cm (5' 10 ) 09/04/2024 8:17 AM CDT Body Mass Index 28.27 09/04/2024 8:17 AM CDT Plan of Treatment Not on file Insurance MEDICARE [facility] MEDICARE [facility] Care Teams Gaming Investigator Relationship Specialty Start Date End Date Brian Viveros MD [address] [place] [address] PCP - General Family Medicine 08/23/19
--- OUTSIDE RECORDS SUMMARY | 2025-02-03 15:01 | XMS_ITS | Clinical Summary ---
Author Organization [facility] Address [address] [place] [address] Care Team Providers Care Searchlight Operator Name Role Phone Brian Viveros MD Primary Care Provider + Source Comments [facility],non-owned Affiliates and Associated Physician Practices is amultiple site organization consisting of ambulatory clinics and hospital sitesin [place], [place], [place] and [place]. This disclosure is being madepursuant to the Care Everywhere program and may not contain all information available regarding this patient. Last updated 18.[facility] Social History Tobacco Use Types Packs/Day Years [...] age to complete this topic Care Teams Searchlight Operator Relationship Specialty Start Date End Date Brian Viveros MD [address] [address] PCP - General 12/15/12
[2025-02-03] MEDS: FLUTICASONE PROPIONATE 0.05% NA SPR 16 GM BTL (*BKC) 1 SPRAY NASAL (15:41)
--- NOTE | 2025-02-03 15:48 | PCRCNOTE ---
Received a requisition stating Pt. has a home BIPAP; Pt. does not want to use one of our units or bring his in at this time. Asked Pt. to let us know if he changed his mind and we could get one for him to use. AdrielN. at bedside during the discussion and is aware.
--- NOTE | 2025-02-03 16:25 | P.PNAN_ITS ---
Anes - Prog Note Post-Op Date/Time: 02/03/25 16:25 Cardiovascular status: normal Respiratory status: normal Airway patency: baseline Mental status: baseline Post-Op hydration status: normal Vital Signs: Last Vital Signs Temp 36.5 C 02/03/25 13:44 Pulse 64 02/03/25 13:44 Resp 16 02/03/25 13:44 BP 128/78 02/03/25 13:44 Pulse Ox 100 02/03/25 13:44 O2 Del Method Room Air 02/02/25 17:00 O2 Flow Rate 8 02/02/25 14:00 Pain Score (VAS): 3 I/O: Intake & Output 02/03/25 02/03/25 02/03/25 07:59 15:59 23:59 Intake Total 480 290 Output Total 1240 725 Balance -760 -435 Laboratory Tests 02/03/25 10:43 02/03/25 10:44 02/03/25 02/03/25 02/03/25 10:43 10:44 13:21 WBC 9.8 RBC 2.83 L Hgb 9.8 L Hct 29.6 L MCV 104.6 H MCH 34.6 H MCHC 33.1 RDW 12.6 Plt Count 140 L MPV 9.4 Immature Gran % (Auto) 0.4 Neut % (Auto) 77.5 H Lymph % (Auto) 8.1 L Foard % (Auto) 13.8 H Eos % (Auto) 0.0 Baso % (Auto) 0.2 Lymph # (Auto) 0.80 L [place] # (Auto) 1.4 H Eos # (Auto) 0.0 Baso # (Auto) 0.0 Abs Immat Gran (auto) 0.04 H Absolute Neuts (auto) 7.6 H Absolute Nucleated RBC 0.000 Nucleated RBC % 0.0 Sodium 134 L Potassium 4.1 Chloride 99 Carbon Dioxide 25 Anion Gap 10 BUN 22 H Creatinine 1.02 Estim Creat Clear Calc 60 Estimated GFR > 60 Glucose 115 H Calcium 8.5 Phosphorus 2.6 Magnesium 2.0 Total Bilirubin 0.8 AST 47 ALT 25 Alkaline Phosphatase 63 Troponin I < 0.012 0.013 C-Reactive Protein 1.6 H Total Protein 7.0 Albumin 3.6 Post-procedural complaints: none Patient Feedback: Patient satisfied with anesthetic care.
[2025-02-03 17:56] LABS: Troponin I < 0.012 ng/mL (0.000-0.034)
[2025-02-04] VITALS: PULSE 64
[2025-02-04 04:00] VITALS: PULSE 80
[2025-02-04] MEDS: HYDROcodone/acetaminophen (*CRX) 10-325 MG TABLET 1 TAB PO (04:18)
[2025-02-04 05:59] VITALS: BP 128/73; PULSE 69; RESP 14; TEMP 37.3; O2SAT 100
[2025-02-04 06:35] LABS: Hematocrit 27.8 % (42.0-52.0); Hemoglobin 9.1 g/dL (14.0-18.0); Mean Corpuscular HGB Conc 32.7 g/dl (32-36); Mean Corpuscular Hemoglobin 34.6 pg (26-34); Mean Corpuscular Volume 105.7 fl (80-100); Mean Platelet Volume 9.5 fl (7.4-10.4); Platelet Count Result 128 k/mm3 (150-375); Red Blood Count 2.63 M/mm3 (4.6-6.20); Red Cell Distribution Width 12.8 % (11.5-14.5); White Blood Count 7.9 K/mm3 (4.5-10.0)
[2025-02-04 07:53] LABS: Folic Acid 8.5 ng/mL (2.76->20)
[2025-02-04] MEDS: ALPRAZolam (*CRX) 0.5 MG TABLET PO (09:49)
[2025-02-04] MEDS: ASPIRIN 81 MG ENTERIC TABLET PO (09:49)
[2025-02-04] MEDS: ATORVASTATIN 40 MG TABLET PO (09:49)
[2025-02-04] MEDS: POTASSIUM CITRATE 5 MEQ TAB CR 20 MEQ PO (09:49)
[2025-02-04] MEDS: DOCUSATE SODIUM 100 MG CAPSULE PO (09:49)
[2025-02-04] MEDS: FUROSEMIDE 40 MG TABLET PO (09:49)
[2025-02-04] MEDS: FLUTICASONE PROPIONATE 0.05% NA SPR 16 GM BTL (*BKC) 1 SPRAY NASAL (09:50)
[2025-02-04] MEDS: CYANOCOBALAMIN INJ 1,000 MCG/ML VIAL 1000 MCG IM (09:51)
[2025-02-04] MEDS: CYANOCOBALAMIN 1,000 MCG TABLET 1000 MCG PO (09:58)
--- NOTE | 2025-02-04 11:34 | P.PNIM_ITS ---
Progress Note: A&P Assessment and Plan (1) Chest pain: Code(s): R07.9 - Chest pain, unspecified Status: Acute (2) B12 deficiency anemia: Code(s): D51.9 - Vitamin B12 deficiency anemia, unspecified Status: Acute (3) Coronary artery disease: Code(s): I25.10 - Atherosclerotic heart disease of [place]' coronary artery without angina pectoris Status: Acute (4) Lumbar stenosis with neurogenic claudication: Code(s): M48.062 - Spinal stenosis, lumbar region with neurogenic claudication Status: Acute (5) Wheezing: Code(s): R06.2 - Wheezing Status: Acute (6) Postoperative anemia: Code(s): D64.9 - Anemia, unspecified Status: Acute (7) Hypertension: Code(s): I10 - Essential (primary) hypertension Status: Acute (8) Pulmonary hypertension: Code(s): I27.20 - Pulmonary hypertension, unspecified Status: Acute Plan Patient with acute onset neck pain that radiated down to upper back then involving the chest. EKG showing flattened T waves in the high lateral leads which is new from EKG earlier this month. Troponin negative. CXR clear; no evidence of widened mediastinum. Repeat EKG showing similar findings. Consider neck muscle spasm. Consider ischemic chest pain but felt less likely. Not likely symptoms for PE. Chest pain could be referred pain from the neck/back pain. On ASA and Lipitor which will continue. Spoke with his Senior Business Broker and will have patietn follow-up with him after discharge. Tele showing no acute findings. Educated the patient about being careful about right foot catching when walking and that puts him at a higher risk for falls. Recommend he walk with shoes to help with this. He and family voice understanding. Hgb was 12.6 prior to admission but dropped to 9 range with macrocytosis. Suspect acute blood loss anemia with underlying B12 deficiency anemia. B12 replaced IM once then oral agents. He will need follow-up B12 level to ensure he is absorbing sufficent amount of B12. Patient s/p lumbar fusion and laminectomy. PT/OT ordered. He is up ambulating in room. He feels ready for discharge. Wheezing noted on exam intially but this has resolved. He has a hx of asthma. Okay for discharge from medical standpoint. DVT prophylaxis - SCDs Code status - full Subjective Date/time seen: 02/04/25 11:34 Interval history: 74 year old male with CAD and HTN here for elective lumbar surgery who developed chest pain in the post-operative period. Up walking in the room. Drain removed. Has localized back pain that is tolerable. No further neck, upper back or chest pain. Exam Narrative: AF 99.1 128/73 69 14 100% ra Gen - NARD Chest - CTA bilaterally CV - RRR S1/S2; Tele showing no signifincat dysrhythmias Abd - soft. Nontender. Nondistended. Positive bowel sounds. Back - lumbar area dressing clean, dry and intact Ext - no pedal edema. Neuro - 4/5 right dorsiflexion. Psych - normal mood and affect. Skin - warm and dry. Objective Data Vital Signs Vital Signs: Vital Signs - 24 hr 02/03/25 13:44 02/03/25 16:00 02/03/25 17:05 Temperature 97.7 F 98.4 F Pulse Rate 64 75 74 Respiratory Rate 16 16 Blood Pressure 128/78 140/95 H Pulse Oximetry 100 100 Oxygen Delivery 02/03/25 20:00 02/03/25 20:19 02/04/25 00:00 Temperature 99.0 F Pulse Rate 62 62 64 Respiratory Rate 14 Blood Pressure 133/71 Pulse Oximetry 96 Oxygen Delivery 02/04/25 04:00 02/04/25 05:59 02/04/25 09:57 Temperature 99.1 F Pulse Rate 80 69 Respiratory Rate 14 Blood Pressure 128/73 Pulse Oximetry 100 Oxygen Delivery Room Air Intake/Output Intake/Output: Intake & Output 02/01/25 02/02/25 02/03/25 02/04/25 23:59 23:59 23:59 23:59 Intake Total 950 1710 550 Output Total 1965 Balance 950 -255 550 Meds/Results Medications: Active Medications Generic Name Dose Route Start Last Admin Trade Name Freq PRN Reason Stop Dose Admin Acetaminophen 1,000 mg 02/02/25 15:10 Acetaminophen 500 Mg Tablet PO Q6H PRN pain 1-3 Hydrocodone Bitart/Acetaminophen 1 tab 02/02/25 13:21 02/04/25 04:18 Hydrocodone/Acetaminophen (*Crx) 10-325 Mg Tablet PO 1 tab Q4H PRN Administration Moderate Pain (4-6) Al Hydrox/Mg Hydrox/Simethicone 20 ml 02/02/25 13:21 Mag Hydrox/Al Hydrox/Simeth 30 Ml Udc PO Q4H PRN Indigestion/Heartburn Albuterol 2 puff 02/02/25 15:10 Albuterol Sulfate (*Sp) Aerosol 1 Puff INHALATION Q6HRT PRN Shortness Of Breath Alprazolam 0.5 mg 02/02/25 17:00 02/04/25 09:49 Alprazolam (*Crx) 0.5 Mg Tablet PO 0.5 mg BID NEIL Administration Aspirin 81 mg 02/03/25 09:00 02/04/25 09:49 Aspirin 81 Mg Enteric Tablet PO 81 mg DAILY NEIL Administration Atorvastatin Calcium 40 mg 02/03/25 09:00 02/04/25 09:49 Atorvastatin 40 Mg Tablet PO 40 mg DAILY NEIL Administration Bisacodyl 10 mg 02/02/25 13:21 Bisacodyl 10 Mg Suppository RECTAL DAILY PRN Constipation Cyanocobalamin 1,000 mcg 02/04/25 09:00 02/04/25 09:51 Cyanocobalamin Inj 1,000 Mcg/Ml Vial IM 02/25/25 09:01 1,000 mcg WEEKLY NEIL Administration Cyanocobalamin 1,000 mcg 02/04/25 09:00 02/04/25 09:58 Cyanocobalamin 1,000 Mcg Tablet PO 1,000 mcg QAM NEIL Administration Cyclobenzaprine HCl 10 mg 02/02/25 13:21 Cyclobenzaprine Hcl 10 Mg Tablet PO TID PRN Muscle Spasms Docusate Sodium 100 mg 02/02/25 21:00 02/04/25 09:49 Docusate Sodium 100 Mg Capsule PO 100 mg Q12HR NEIL Administration Fluticasone Propionate 1 spray 02/03/25 09:00 02/04/25 09:50 Fluticasone Propionate 0.05% Na Spr 16 Gm Btl (*Bkc) NASAL 1 spray DAILY NEIL Administration Furosemide 40 mg 02/03/25 09:00 02/04/25 09:49 Furosemide 40 Mg Tablet PO 40 mg QAM NEIL Administration Hydromorphone HCl 0.5 mg 02/02/25 13:21 02/03/25 08:09 Hydromorphone Hcl Inj (*Crx) 1 Mg/Ml Syr IV PUSH 0.5 mg Q2H PRN Administration Pain Rated 7-10 Ibuprofen 200 mg 02/02/25 15:20 02/03/25 15:36 Ibuprofen 200 Mg Tablet PO 200 mg Q6H PRN Administration pain Nitroglycerin 0.4 mg 02/02/25 15:10 Nitroglycerin Sl 0.4 Mg Tablet SUBLINGUAL Q5MIN PRN Chest Pain Ondansetron HCl 4 mg 02/02/25 13:21 Ondansetron Inj 4 Mg/2 Ml Vial IV PUSH Q8H PRN Nausea And Vomiting Potassium Citrate 20 meq 02/02/25 17:00 02/04/25 09:49 Potassium Citrate 5 Meq Tab Cr PO 20 meq BID NEIL Administration Senna/Docusate Sodium 1 tab 02/02/25 13:21 Senna/Docusate Sodium Tablet PO HS PRN Constipation Radiology Results: ITS Impressions Fluoroscopy 02/02/25 14:12 IMPRESSION: 1. Anterior fusion procedure at L4-L5. 2. Posterior fusion procedure from L3 to L5. Chest X-Ray 02/03/25 11:20 IMPRESSION: 1. No acute cardiopulmonary disease. Labs Labs: Laboratory Results - last 24 hr 02/03/25 02/03/25 02/04/25 13:21 17:12 06:14 WBC 7.9 RBC 2.63 L Hgb 9.1 L Hct 27.8 L MCV 105.7 H MCH 34.6 H MCHC 32.7 RDW 12.8 Plt Count 128 L MPV 9.5 Troponin I 0.013 < 0.012 Vitamin B12 162.0 L Folate 8.5
== END 2025-02-04 12:10 | disposition home or self-care (01) ==
LOC: ANHSURGERY 13:26 → ANH3MED 02-03 14:54
PROVIDERS: Internal Medicine; PCP Family Medicine Adolescent Medicine; Visit Provider Neurological Surgery
PROC: (CPT 22612; principal; 2025-02-02 07:30)
DX: M48.062 Spinal stenosis, lumbar region with neurogenic claudication (principal); M43.06 Spondylolysis, lumbar region; I10 Essential (primary) hypertension; J45.909 Unspecified asthma, uncomplicated; I25.10 Atherosclerotic heart disease of native coronary artery without angina pectoris; I27.20 Pulmonary hypertension, unspecified; G47.31 Primary central sleep apnea; Z79.51 Long term (current) use of inhaled steroids; Z79.82 Long term (current) use of aspirin; Z79.1 Long term (current) use of non-steroidal anti-inflammatories (NSAID); Z99.89 Dependence on other enabling machines and devices; Z98.890 Other specified postprocedural states; Z95.5 Presence of coronary angioplasty implant and graft; Z87.442 Personal history of urinary calculi; Z82.49 Family history of ischemic heart disease and other diseases of the circulatory system; Z87.891 Personal history of nicotine dependence
CPT/HCPCS: 63047; 63048; 22853; 22612; 22840; 36415; 71045; 80053; 82607; 82746; 83735; 84100; 84484; 85025; 85027; 86140; 86850; 86900; 86901; 93005; 97162; 97530; 99199; A9270; C1713; J0690; J1100; J1171; J2003; J2405; J2704; J3010; J3420; J7030; J7120

== ENCOUNTER 2025-02-06 10:06 | Emergency (ER) | payer MEDICARE, SELFPAY ==
[2025-02-06 10:11] VITALS: BP 131/88; PULSE 97; RESP 17; TEMP 36.7; O2SAT 100
--- NOTE | 2025-02-06 10:28 | ED_ITS ---
HPI - General Adult General Chief complaint: Urogenital-Male Stated complaint: unable to urinate, back surgery Wednesday Time Seen by Provider: 02/06/25 10:09 History of Present Illness HPI narrative: 64-year-old male presented to the emergency department for evaluation for urinary retention. Patient did have recent back surgery and did have a Hill catheter placed during the procedure. Patient denies any associated numbness or weakness. Patient denies any change in bowel habits. Patient does have lower back pain. Patient was able to urinate a very small amount upon arrival to the emergency department. Patient denies any history of urinary retention but does follow-up with Urology, Dr. Nieto Related Data Home Medications ?Medication ?Instructions ?Recorded ?Confirmed ?Last Taken ?Type fluticasone propionate 50 1 spray intranasal DAILY 01/22/21 02/02/25 02/01/25 History mcg/actuation nasal spray,suspension potassium citrate 10 mEq (1,080 2,160 mg PO BID 11/09/23 02/02/25 02/01/25 History mg) tablet,extended release (Urocit-K 10) acetaminophen 500 mg tablet 1,000 mg PO Q6H PRN pain 01/19/25 02/02/25 01/26/25 History (Acetaminophen Extra Strength) aspirin 81 mg tablet,delayed 81 mg PO DAILY 01/19/25 01/19/25 Unknown History release ibuprofen 200 mg capsule 200 mg PO Q6H PRN pain 01/19/25 02/02/25 01/26/25 History Allergies Allergy/AdvReac Type Severity Reaction Status Date / Time ciprofloxacin Allergy Intermediate RASH Verified 02/02/25 06:11 budesonide (From Symbicort) Allergy Hypertensio Verified 02/02/25 06:11 n formoterol (From Symbicort) Allergy Hypertensio Verified 02/02/25 06:11 n Quinazolinones Allergy Rash Verified 02/02/25 06:11 primidone AdvReac Intermediate Confusion Verified 02/02/25 06:11 propranolol (From Inderal [place]) AdvReac Confusion Verified 02/02/25 06:11 Review of Systems Review of Systems: All systems reviewed & are unremarkable except as noted in HPI and below PMFSH Past Medical History Medical History Lumbar stenosis with neurogenic claudication Lumbar spondylosis Kidney stones, calcium oxalate Normal colonoscopy 2016 Injury of right hand 2006, severe injury H/O renal calculi with removal 2012 Coronary artery disease Hypertension Pulmonary hypertension Rhinitis Unspecified asthma Central sleep apnea Bipap Surgical History Surgical History History of lumbar spinal fusion (01/2025) S/P appy 1961 Stented coronary artery proximal LAD Sep 14, 2019 S/P left knee arthroscopy 2009 H/O left inguinal hernia repair 2011 Family History Family History Mother , age 87, good health No problems noted. Grandparent Acute myocardial infarction Heart disease Grandparent Acute myocardial infarction Heart disease Other Asthma Social History Social History (Updated 02/03/25 @ 12:40 by Hermelindo Meraz MD) Social History: Lives with . Ex-smoker. No alcohol. Code status - full Surrogate decision maker - Smoking packs per day: 1 Smoking cigarettes per day: 20.0 Years smoked: 20 Smoking pack-years: 20.00 Smoking status: Former smoker Second hand tobacco smoke exposure: No Alcohol intake: never Substance use: never Substance use type: does not use Do You Feel Safe in your Home?: Yes Lack of Transportation: No Lack of Food: Never True Current Housing: I Have Housing Concerned About Future Housing: No Difficulty Paying Gas/Electric Bills: No Difficulty Paying for Meds: No Currently Unemployed: No Education: Trade/Vocational Certificate Difficulty w/ Childcare or Family Care: No Living arrangements: with family Additional living arrangements comments: Occupation/Education: retired Gender identity (if verbalized by the patient): Male Spiritual care concerns: No Agree to blood products: Yes Exam Narrative: APPEARANCE: Well appearing, no pain, no distress, well-nourished. HEAD: normocephalic, atraumatic. EYES: PERRLA/EOMI, conjunctivae clear. NOSE: Normal no drainage EARS:TMS clear with good light reflex. THROAT: Pharynx clear, no exudate. NECK: Supple. No adenopathy, no masses. RESPIRATORY: Airway patent, respirations nonlabored. Clear to auscultation bilaterally, no rales, rhonchi, wheezing. CARDIOVASCULAR: Regular rate and rhythm without murmurs rubs or gallops. ABDOMINAL: Soft, nontender, nondistended, normal bowel sounds. Bedside bladder scan did show greater than 700 mL of postvoid residual urine. MUSCULOSKELETAL: Moves all extremities. Strength/ROM intact, No edema, No calf tenderness. NEURO: Alert. Cranial nerves II through XII intact. Good gait. Good coordination SKIN: Warm, dry. Normal Color PSYCHIATRIC: Normal affect/mood. Course Vital Signs Vital signs: Vital Signs Temperature 98.0 F 02/06/25 10:11 Pulse Rate 97 02/06/25 10:11 Respiratory Rate 17 02/06/25 10:11 Blood Pressure 131/88 02/06/25 10:11 Pulse Oximetry 100 02/06/25 10:11 Oxygen Delivery Room Air 02/06/25 10:11 Temperature 98.0 F 02/06/25 10:11 Pulse Rate 97 02/06/25 10:11 Respiratory Rate 17 02/06/25 10:11 Blood Pressure 131/88 02/06/25 10:11 Pulse Oximetry 100 02/06/25 10:11 Oxygen Delivery Room Air 02/06/25 10:11 Medical Decision Making MDM Narrative Medical decision making narrative: 74-year-old male presenting to the emergency department for evaluation for incre ased urinary retention. Hill catheter is placed and patient is draining urine and does feel improved. I believe this is secondary to Hill catheter being placed in not evidence a neurologic injury. Patient denies any associated numbness or weakness. Patient does have back pain after the surgery but denies any other neurologic changes. Differential Diagnosis Differential Diagnosis: Urinary retention, enlarged prostate, spinal cord injury, UTI Vital Signs Vital Signs: Vital Signs Temperature 98.0 F 02/06/25 10:11 Pulse Rate 97 02/06/25 10:11 Respiratory Rate 17 02/06/25 10:11 Blood Pressure 131/88 02/06/25 10:11 Pulse Oximetry 100 02/06/25 10:11 Oxygen Delivery Room Air 02/06/25 10:11 Temperature 98.0 F 02/06/25 10:11 Pulse Rate 97 02/06/25 10:11 Respiratory Rate 17 02/06/25 10:11 Blood Pressure 131/88 02/06/25 10:11 Pulse Oximetry 100 02/06/25 10:11 Oxygen Delivery Room Air 02/06/25 10:11 Lab Data Lab results reviewed: Yes I reviewed the patient's lab results. Labs: Lab Results 02/06/25 Range/Units 10:41 Urine Color Yellow (Yellow) Urine Appearance Clear (Clear) Urine pH 7.0 (5.0-9.0) Ur Specific [place] 1.015 (1.001-1.035) Urine Protein 1+ H (Negative) mg/dL Urine Glucose (UA) Negative (Negative) mg/dL Urine Ketones Negative (Negative) mg/dL Ur Blood (Man) Negative (Negative) Urine Nitrate Negative (Negative) Urine Bilirubin Negative (Negative) Urine Urobilinogen 1.0 (<2.0) mg/dL Leukocyte Esterase Rfl Negative (Negative) TEMO/UL Urine RBC 0-2 (0-2) /hpf Urine WBC 0-5 (0-3) /hpf Ur Squamous Epith Cells None seen (Few) /hpf Urine Bacteria None seen /hpf Urine Casts 0-2 Discharge Plan Discharge Clinical Impression: Acute urinary retention Patient Disposition: Home, Self-Care Condition: Stable Instructions: Antibiotic Form, Hill Catheter Placement and Care (ED) Additional Instructions: Hill catheter care as directed. Flomax as directed. Continue to have close follow-up with Urology, you will need to see them in approximately 1 week. If you have any worsening symptoms then please call or return to the emergency department. Also have close follow-up with Neurosurgery. Patient Language: Azerbaijani Prescriptions: New tamsulosin [Flomax] 0.4 mg capsule 0.4 mg PO DAILY 14 Days Qty: 14 0RF No Action potassium citrate [Urocit-K 10] 10 mEq (1,080 mg) tablet extended release 2,160 mg PO BID fluticasone propionate 50 mcg/actuation [place],Suspension 1 spray INTRANASAL DAILY aspirin 81 mg tablet,delayed release (DR/EC) 81 mg PO DAILY acetaminophen [Acetaminophen Extra Strength] 500 mg tablet 1,000 mg PO Q6H PRN (Reason: pain) ibuprofen 200 mg capsule 200 mg PO Q6H PRN (Reason: pain) oxycodone 5 mg tablet 5 mg PO Q4H PRN (Reason: pain) Qty: 32 0RF cyclobenzaprine 5 mg tablet 5 mg PO HS Qty: 30 0RF sennosides [senna] 8.6 mg tablet 8.6 mg PO BID PRN (Reason: constipation) Qty: 30 2RF cyanocobalamin (vitamin B-12) [Vitamin B-12] 1,000 mcg Tablet 1,000 mcg PO QAM Qty: 30 2RF nitroglycerin [Nitrostat] 0.4 mg Tablet, Sublingual 0.4 mg sublingual Q5MIN PRN (Reason: Chest Pain) Qty: 25 3RF albuterol sulfate [Ventolin HFA] 90 mcg/actuation HFA aerosol inhaler 2 puff INHALATION QID PRN (Reason: Shortness Of Breath) Qty: 8.5 4RF atorvastatin 40 mg tablet 40 mg PO DAILY Qty: 90 3RF furosemide 40 mg tablet 40 mg PO QAM Qty: 90 3RF alprazolam [Xanax] 0.5 mg tablet 0.5 mg PO BID Qty: 180 1RF Follow-up/Referrals: Isiah Nieto MD [Physician] - Brian Viveros MD [Primary Care Provider] -
[2025-02-06] MEDS: TAMSULOSIN HCL 0.4 MG CAPSULE PO (10:40)
[2025-02-06 10:53] LABS: Add Urine Microscopic? YES; Appearance Urine Clear (Clear); Bacteria Urine None Seen /hpf; Bilirubin Urine Negative (Negative); Blood Urine Negative (Negative); Color Urine Yellow (Yellow); Glucose Urine UA Negative (Negative); Ketones Urine Negative (Negative); Leukocyte Esterase Ur Negative LEU/UL (Negative); Nitrate Urine Negative (Negative); Non Pathogenic Casts 0-2; Protein Urine 1+ mg/dL (Negative); RBC Urine 0-2 /hpf (0-2); Specific Grav Ur 1.015 (1.001-1.035); Squamous Epithelial Cell Urine None Seen /hpf (Few); WBC Urine 0-5 /hpf (0-3)
--- OUTSIDE RECORDS SUMMARY | 2025-02-06 11:00 | XMS_ITS | Referral Summary ---
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 Gender Identity Male 02/16/2023 8:50 AM CDT Sexual Orientation Straight 02/16/2023 8: 50 AM CDT Last Filed Vital Signs Vital Sign Reading Time Taken Comments Blood Pressure 130/72 09/04/2024 8:17 AM CDT Pulse 58 09/04/2024 8:17 AM CDT Temperature 36.5 C (97.7 F) 01/09/2021 10:57 AM SEAT JOINER CHAINSTITCH Respiratory Rate - - Oxygen Saturation 99% 09/04/2024 8:17 AM CDT Inhaled Oxygen Concentration - - Weight 89.4 kg (197 lb) 09/04/2024 8:17 AM CDT Height 177.8 cm (5' 10 ) 09/04/2024 8:17 AM CDT Body Mass Index 28.27 09/04/2024 8:17 AM CDT Plan of Treatment Not on file Insurance MEDICARE [facility] MEDICARE [facility] Care Teams Machine Operator Hay Stacker Relationship Specialty Start Date End Date Brian Viveros MD [address] [place] [address] PCP - General Family Medicine 08/23/19
--- OUTSIDE RECORDS SUMMARY | 2025-02-06 11:01 | XMS_ITS | Clinical Summary ---
Author Organization [facility] Address [address] [place] [address] Care Team Providers Care Dispatch Machine Runner Name Role Phone Unavailable Primary Care Provider [...]
--- OUTSIDE RECORDS SUMMARY | 2025-02-06 11:01 | XMS_ITS | Clinical Summary ---
Author Organization [facility] Address [address] [place] [address] Care Team Providers Care License Inspector Name Role Phone Brian Viveros MD Primary Care Provider + Source Comments [facility],non-owned Affiliates and Associated Physician Practices is amultiple site organization consisting of ambulatory clinics and hospital sitesin [place], [place], [place] and [place]. This disclosure is being madepursuant to the Care Everywhere program and may not contain all information available regarding this patient. Last updated 18.[facility] Social History Tobacco Use Types Packs/Day Years [...] age to complete this topic Care Teams License Inspector Relationship Specialty Start Date End Date Brian Viveros MD [address] [address] PCP - General 12/15/12
--- OUTSIDE RECORDS SUMMARY | 2025-02-06 11:01 | XMS_ITS | Clinical Summary ---
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 Gender Identity Male 02/16/2023 8:50 AM CDT Sexual Orientation Straight 02/16/2023 8: 50 AM CDT Obstetrics History Last Filed Vital Signs Vital Sign Reading Time Taken Comments Blood Pressure 130/72 09/04/2024 8:17 AM CDT Pulse 58 09/04/2024 8:17 AM CDT Temperature 36.5 C (97.7 F) 01/09/2021 10:57 AM THERMO PROCESSOR Respiratory Rate - - Oxygen Saturation 99% [...] (#1) 2024 9, 08/29/2018, 08/22/2017 Insurance MEDICARE [facility] MEDICARE [facility] Care Teams Complaint Analyst Relationship Specialty Start Date End Date Brian Viveros MD [address] [place] [address] PCP - General Family Medicine 08/23/19
--- OUTSIDE RECORDS SUMMARY | 2025-02-06 11:32 | XMS_ITS | Clinical Summary ---
Author Organization [facility] [employer] Address [address] [place] [address] Care Team Providers Care Watch Electrician Name Role Phone Brian Viveros MD Primary Care Provider + Source Comments [facility] [employer],non-owned Affiliates and Associated Physician Practices is amultiple site organization consisting of ambulatory clinics and hospital sitesin [place], [place], [place] and [place]. This disclosure is being madepursuant to the Care Everywhere program and may not contain all information available regarding this patient. Last updated 18.[facility] [employer] Social History Tobacco Use Types Packs/Day Years [...] age to complete this topic Care Teams Watch Electrician Relationship Specialty Start Date End Date Brian Viveros MD [address] [address] PCP - General 12/15/12
--- OUTSIDE RECORDS SUMMARY | 2025-02-06 11:32 | XMS_ITS | Clinical Summary ---
Author Organization [facility] Address [address] [place] [address] Care Team Providers Care Insemination Worker Name Role Phone Unavailable Primary Care [...]
--- OUTSIDE RECORDS SUMMARY | 2025-02-06 11:32 | XMS_ITS | Clinical Summary ---
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 Gender Identity Male 02/16/2023 8:50 AM CDT Sexual Orientation Straight 02/16/2023 8: 50 AM CDT Obstetrics History Last Filed Vital Signs Vital Sign Reading Time Taken Comments Blood Pressure 130/72 09/04/2024 8:17 AM CDT Pulse 58 09/04/2024 8:17 AM CDT Temperature 36.5 C (97.7 F) 01/09/2021 10:57 AM TAP AND DIE MAKER TECHNICIAN Respiratory Rate - - Oxygen Saturation 99% [...] (#1) 2024 9, 08/29/2018, 08/22/2017 Insurance MEDICARE [facility] MEDICARE [facility] Care Teams Layer Out Plate Glass Relationship Specialty Start Date End Date Brian Viveros MD [address] [place] [address] PCP - General Family Medicine 08/23/19
--- OUTSIDE RECORDS SUMMARY | 2025-02-06 11:32 | XMS_ITS | Referral Summary ---
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 Gender Identity Male 02/16/2023 8:50 AM CDT Sexual Orientation Straight 02/16/2023 8: 50 AM CDT Last Filed Vital Signs Vital Sign Reading Time Taken Comments Blood Pressure 130/72 09/04/2024 8:17 AM CDT Pulse 58 09/04/2024 8:17 AM CDT Temperature 36.5 C (97.7 F) 01/09/2021 10:57 AM TEA BAG MACHINE TENDER Respiratory Rate - - Oxygen Saturation 99% 09/04/2024 8:17 AM CDT Inhaled Oxygen Concentration - - Weight 89.4 kg (197 lb) 09/04/2024 8:17 AM CDT Height 177.8 cm (5' 10 ) 09/04/2024 8:17 AM CDT Body Mass Index 28.27 09/04/2024 8:17 AM CDT Plan of Treatment Not on file Insurance MEDICARE [facility] MEDICARE [facility] Care Teams State Appellate Clerk Relationship Specialty Start Date End Date Brian Viveros MD [address] [place] [address] PCP - General Family Medicine 08/23/19
== END 2025-02-06 12:05 | disposition home or self-care (01) ==
PROVIDERS: Emergency Provider Emergency Medicine; PCP Family Medicine Adolescent Medicine
DX: R33.9 Retention of urine, unspecified (principal); I25.10 Atherosclerotic heart disease of native coronary artery without angina pectoris; I10 Essential (primary) hypertension; I27.20 Pulmonary hypertension, unspecified; J45.909 Unspecified asthma, uncomplicated; G47.30 Sleep apnea, unspecified
CPT/HCPCS: 51702; 81001; 99283; A9270

== ENCOUNTER 2025-03-05 07:11 | Outpatient (CLI) | payer MEDICARE, SELFPAY ==
--- NOTE | ~2025-03-05 | XR_ITS ---
3 VIEWS LUMBAR SPINE Ordering provider: Jacek Cr MD History: . M48.062 - Spinal stenosis, lumbar region with neurogenic ... . December 15, 2024 FINDINGS: VERTEBRAL BODIES: No visible fracture or subluxation. Postoperative changes at the level of L3, L4 an d L5.. Degenerative changes of the spine. DISK SPACES: Disc spacer at the level of L4-L5. SOFT TISSUES: Atherosclerotic changes of the aorta. Bilateral kidney stones. IMPRESSION: No acute osseous abnormality lumbar spine. Postoperative changes at the level of L3, L4 and L5. Reviewed, dictated and finalized at location A.
--- OUTSIDE RECORDS SUMMARY | 2025-03-05 07:14 | XMS_ITS | Referral Summary ---
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 Gender Identity Male 02/16/2023 8:50 AM CDT Sexual Orientation Straight 02/16/2023 8: 50 AM CDT Last Filed Vital Signs Vital Sign Reading Time Taken Comments Blood Pressure 130/72 09/04/2024 8:17 AM CDT Pulse 58 09/04/2024 8:17 AM CDT Temperature 36.5 C (97.7 F) 01/09/2021 10:57 AM RODBUSTER Respiratory Rate - - Oxygen Saturation 99% 09/04/2024 8:17 AM CDT Inhaled Oxygen Concentration - - Weight 89.4 kg (197 lb) 09/04/2024 8:17 AM CDT Height 177.8 cm (5' 10 ) 09/04/2024 8:17 AM CDT Body Mass Index 28.27 09/04/2024 8:17 AM CDT Plan of Treatment Not on file Insurance MEDICARE [facility] MEDICARE [facility] Care Teams Swaging Machine Adjuster Relationship Specialty Start Date End Date Brian Viveros MD [address] [place] [address] PCP - General Family Medicine 08/23/19
--- OUTSIDE RECORDS SUMMARY | 2025-03-05 07:15 | XMS_ITS | Clinical Summary ---
Author Organization [facility] [employer] [facility] Address [address] [place] [address] Care Team Providers Care Satellite Tv Technician Installer Name Role Phone Brian Viveros MD Primary Care Provider + Source Comments [facility],non-owned Affiliates and Associated Physician Practices is amultiple site organization consisting of ambulatory clinics and hospital sitesin [place], [place], [place] and [place]. This disclosure is being madepursuant to the Care Everywhere program and may not contain all information available regarding this patient. 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
--- OUTSIDE RECORDS SUMMARY | 2025-03-05 07:15 | XMS_ITS | Clinical Summary ---
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 Gender Identity Male 02/16/2023 8:50 AM CDT Sexual Orientation Straight 02/16/2023 8: 50 AM CDT Obstetrics History Last Filed Vital Signs Vital Sign Reading Time Taken Comments Blood Pressure 130/72 09/04/2024 8:17 AM CDT Pulse 58 09/04/2024 8:17 AM CDT Temperature 36.5 C (97.7 F) 01/09/2021 10:57 AM ELECTRONIC FIELD SERVICE ENGINEER Respiratory Rate - - Oxygen Saturation 99% [...] 2014 Well Visit 65+ 2014 Influenza Vaccine (Season Ended) 2025 08/31/2019, 08/29/2018, 08/22/2017 Insurance MEDICARE [facility] MEDICARE [facility] Care Teams Alarm Adjuster Relationship Specialty Start Date End Date Brian Viveros MD [address] [place] [address] PCP - General Family Medicine 08/23/19
--- OUTSIDE RECORDS SUMMARY | 2025-03-05 07:15 | XMS_ITS | Clinical Summary ---
Author Organization [facility] Address [address] [place] [address] Care Team Providers Care Head Waiter/Waitress Banquet Name Role Phone Unavailable Primary Care Provider [...] Td Vaccines ( 1 - Tdap) 1968 Pneumococcal Vaccine: 50+ Ye ars (1 of 1 - PCV) 1999 Zoster Vaccines (1 of 2) 1999 COVID-19 Vaccine ( - 2023-2 5 season) 2024 RSV Immunization or 60+ Years (1 [...]
== END 2025-03-05 07:12 | disposition home or self-care (01) ==
PROVIDERS: PCP Family Medicine Adolescent Medicine; Visit Provider Neurological Surgery
DX: M48.062 Spinal stenosis, lumbar region with neurogenic claudication (principal); N20.0 Calculus of kidney
CPT/HCPCS: 72100

== ENCOUNTER 2025-03-16 06:49 | Outpatient (CLI) | payer MEDICARE, SELFPAY ==
--- OUTSIDE RECORDS SUMMARY | 2025-03-16 06:54 | XMS_ITS | Clinical Summary ---
Author Organization [facility] Address [address] [place] [address] Care Team Providers Care Battery Technician Name Role Phone Unavailable Primary Care Provider [...]
--- OUTSIDE RECORDS SUMMARY | 2025-03-16 06:54 | XMS_ITS | Referral Summary ---
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 Gender Identity Male 02/16/2023 8:50 AM CDT Sexual Orientation Straight 02/16/2023 8: 50 AM CDT Last Filed Vital Signs Vital Sign Reading Time Taken Comments Blood Pressure 130/72 09/04/2024 8:17 AM CDT Pulse 58 09/04/2024 8:17 AM CDT Temperature 36.5 C (97.7 F) 01/09/2021 10:57 AM HAZARDOUS SUBSTANCES ENGINEER Respiratory Rate - - Oxygen Saturation 99% 09/04/2024 8:17 AM CDT Inhaled Oxygen Concentration - - Weight 89.4 kg (197 lb) 09/04/2024 8:17 AM CDT Height 177.8 cm (5' 10 ) 09/04/2024 8:17 AM CDT Body Mass Index 28.27 09/04/2024 8:17 AM CDT Plan of Treatment Not on file Insurance MEDICARE [facility] MEDICARE [facility] Care Teams Sight Mounter Relationship Specialty Start Date End Date Brian Viveros MD [address] [place] [address] PCP - General Family Medicine 08/23/19
--- OUTSIDE RECORDS SUMMARY | 2025-03-16 06:54 | XMS_ITS | Clinical Summary ---
Author Organization [facility] Address [address] [place] [address] Care Team Providers Care Mending Carrier Name Role Phone Brian Viveros MD Primary Care Provider + Source Comments [facility],non-owned Affiliates and Associated Physician Practices is amultiple site organization consisting of ambulatory clinics and hospital sitesin [place], [place], [place] and [place]. This disclosure is being madepursuant to the Care Everywhere program and may not contain all information available regarding this patient. 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
--- OUTSIDE RECORDS SUMMARY | 2025-03-16 06:54 | XMS_ITS | Clinical Summary ---
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 Gender Identity Male 02/16/2023 8:50 AM CDT Sexual Orientation Straight 02/16/2023 8: 50 AM CDT Obstetrics History Last Filed Vital Signs Vital Sign Reading Time Taken Comments Blood Pressure 130/72 09/04/2024 8:17 AM CDT Pulse 58 09/04/2024 8:17 AM CDT Temperature 36.5 C (97.7 F) 01/09/2021 10:57 AM BLEND TECHNICIAN Respiratory Rate - - Oxygen Saturation [...] Ended) 2025 08/31/2019, 08/29/2018, 08/22/2017 Insurance MEDICARE [facility] Care Teams Diagrammer And Seamer Relationship Specialty Start Date End Date Brian Viveros MD [address] [place] [address] PCP - General Family Medicine 08/23/19
[2025-03-16 07:56] LABS: Add Urine Microscopic? YES; Appearance Urine Clear (Clear); Bacteria Urine None Seen /hpf; Bilirubin Urine Negative (Negative); Blood Urine Negative (Negative); Color Urine Yellow (Yellow); Glucose Urine UA Negative (Negative); Ketones Urine Negative (Negative); Leukocyte Esterase Ur 3+ LEU/UL (Negative); Nitrate Urine Negative (Negative); Non Pathogenic Casts 0-2; Protein Urine Negative (Negative); RBC Urine 0-2 /hpf (0-2); Specific Grav Ur 1.008 (1.001-1.035); Squamous Epithelial Cell Urine None Seen /hpf (Few); Urobilinogen Urine 0.2 mg/dL (<2.0); WBC Urine 51-100 /hpf (0-3); pH Urine 7.5 (5.0-9.0)
== END 2025-03-16 06:50 | disposition home or self-care (01) ==
PROVIDERS: PCP Family Medicine Adolescent Medicine; Visit Provider Neurological Surgery
DX: R82.90 Unspecified abnormal findings in urine (principal); M48.062 Spinal stenosis, lumbar region with neurogenic claudication
CPT/HCPCS: 81001; 87086

== ENCOUNTER 2025-06-02 07:33 | Outpatient (CLI) | payer MEDICARE, SELFPAY ==
--- NOTE | ~2025-06-02 | XR_ITS ---
HISTORY: M17.0 - Bilateral primary osteoarthritis of knee COMPARISON: None TECHNIQUE: 3 views of the left knee were performed FINDINGS: No acute or subacute fracture. Near complete obliteration of the medial tibiofemoral joint space is identified. Small suprapatellar joint effusion is identified. The infrapatellar joint space is clear. IMPRESSION: Significant degenerative disease with a small suprapatellar joint effusion. Reviewed, dictated and finalized at location A.
== END 2025-06-02 07:34 | disposition home or self-care (01) ==
LOC: MICIMG 07:34
PROVIDERS: PCP Family Medicine Adolescent Medicine; Visit Provider Family Medicine Adolescent Medicine
DX: M17.0 Bilateral primary osteoarthritis of knee (principal); M25.462 Effusion, left knee
CPT/HCPCS: 73562

== ENCOUNTER 2025-07-16 11:11 | Inpatient (IN) | payer MEDICARE, SELFPAY ==
[2025-07-16] VITALS (28 sets, daily range): BP systolic 94–139; BP diastolic 66–97; PULSE 101–162; RESP 16–28; TEMP 36.6–37.2; O2SAT 94–100; BMI 27.8
--- NOTE | 2025-07-16 | ECHO_ITS ---
Patient Info Name: Stephane Blackburn Age: 74 years : 1950 Gender: Male Ht: 70 in Wt: 193 lbs BSA: 2.10 m2 HR: 140 bpm BP: 115 / 86 mmHg Heart Rhythm: Atrial Fibrillation Technical Quality: Good Exam Date: 07/16/2025 2:15 PM Patient Status: I Admit Date: 07/17/2025 Exam Type: CA echo dop color flow w con Complete two-dimensional, color flow and Doppler transthoracic echocardiogram is performed with contrast to opacify the left ventricle and to improve the deliniation of the left ventricle endocardial borders. Staff Referring Physician: Syed Ocampo Shoe Lining Fitter: Juliana Ridley Attending Provider: Celestina Farrell Contrast/Agitated Saline Contrast/Ag. Saline: Definity Amount: 2.00 ml Administered By: Juliana Ridley Existing IV Access: Yes IV Access Condition: patent with no signs of infiltration Summary 1. The left ventricle is normal in size with severely reduced systolic function. The left ventricular ejection fraction is visually estimated to be 20-25%. This could be mildly underestimated secondary to atrial fibrillation with rapid ventricular rates. 2. There is severe biatrial enlargement. 3. Dilated inferior vena cava with <50% collapse upon inspiration consistent with significantly elevated right atrial pressure, 15 mmHg. 4. There is a large size left pleural effusion. Left Ventricle The left ventricle is normal in size with severely reduced systolic function. The left ventricular ejection fraction is visually estimated to be 20-25%. This could be mildly underestimated secondary to atrial fibrillation with rapid ventricular rates. Right Ventricle The right ventricle is normal in size and systolic function. Left Atria The left atrium is severely dilated. Right Atria The right atrium is severely dilated. Atrial Septum The atrial septum is visually intact. Aortic Valve The aortic valve is trileaflet and sclerotic. There is no aortic stenosis. There is no aortic regurgitation. Pulmonic Valve The pulmonic valve is not well visualized. Mitral Valve The mitral valve leaflets are sclerotic. There is no mitral stenosis. There is mild mitral regurgitation. Tricuspid Valve The tricuspid valve is sclerotic. There is mild tricuspid regurgitation. Pericardium/Pleural There is a large size left pleural effusion. Inferior Vena Cava Dilated inferior vena cava with <50% collapse upon inspiration consistent with significantly elevated right atrial pressure, 15 mmHg. Aorta The aortic root is not well visualized. Left Ventricular Outflow Tract Name Value Normal LVOT 2D LVOT Diameter 2.0 cm LVOT Doppler LVOT Peak Velocity 89 cm/s LVOT Peak Gradient 3 mmHg LVOT Mean Gradient 1 mmHg LVOT VTI 10 cm LVOT VTI/AV VTI Ratio 0.8 LVOT Stroke Volume 27 ml LVOT CO 4.6 l/min LVOT CI 2.2 l/min/m2 Pulmonic Valve Name Value Normal RVOT Doppler RVOT Peak Velocity 70 cm/s RVOT Peak Gradient 2 mmHg PV Doppler PV Peak Velocity 102 cm/s PV Peak Gradient 2 mmHg Mitral Valve Name Value Normal MV Regurgitation Doppler MR Peak Gradient 69 mmHg MV Diastolic Function MV E Peak Velocity 112 cm/s MV A Peak Velocity 1 cm/s MV E/A 94.0 MV Decel Time (PW) 147 ms MV Annular TDI MV E/e' (Septal) 14.1 MV E/e' (Lateral) 10.9 MV E/e' (Average) 12.5 Tricuspid Valve Name Value Normal TV Regurgitation Doppler TR Peak Velocity 278 cm/s TR Peak Gradient 20 mmHg Estimated PAP/RSVP RA Pressure 15 mmHg <=5 PA Systolic Pressure 46 mmHg <36 RV Systolic Pressure 46 mmHg <36 TV Annular TDI TV Lateral Anabelle s' Velocity 5.5 cm/s >=9.5 Aorta Name Value Normal Ascending Aorta Ao Root Diameter (MM) 2.4 cm Ao Root Diam Index (MM) 1.2 cm/m2 Aortic Valve Name Value Normal AV Doppler AV Peak Velocity 113 cm/s AV Peak Gradient 5 mmHg AV Mean Gradient 3 mmHg AV VTI 12 cm AV Area (Cont Eq VTI) 2.3 cm2 >=3.0 AV Area (Cont Eq Jason) 2.4 cm2 AV DI (Jason) 0.79 AV Regurgitation 2D LVOT Area 3.3 cm2 Ventricles Name Value Normal LV Dimensions 2D/MM IVS Diastolic Thickness (2D) 0.9 cm 0.6-1.0 LVID Diastole (2D) 5.0 cm 4.2-5.8 LVIW Diastolic Thickness (2D) 0.9 cm 0.6-1.0 LVID Systole (2D) 3.6 cm 2.5-4.0 LVOT Diameter 2.0 cm LV Mass (2D Cubed) 155.63 g 88.00-224.00 LV Mass Index (2D Cubed) 74 g/m2 49-115 Relative Wall Thickness (2D) 0.34 <=0.42 LV Fractional Shortening/Ejection Fraction 2D/MM LV Fractional Shortening (2D) 29 % 25-43 LV EF (2D Teichholz) 55 % LV Diastolic Volume (4C MOD) 84 ml LV EF (4C MOD) 54 % LV Diastolic Volume (2C MOD) 62 ml LV EF (2C MOD) 56 % LV Diastolic Volume (BP MOD) 73 ml 62-150 LV Diastolic Volume Index (BP MOD) 35 ml/m2 34-74 LV Systolic Volume (BP MOD) 33 ml 21-61 LV Systolic Volume Index (BP MOD) 16 ml/m2 11-31 LV EF (BP MOD) 55 % 52-72 LV Diastolic Length (4C) 6.9 cm LV Systolic Length (4C) 6.1 cm LV Stroke Volume (4C MOD) 45 ml Atria Name Value Normal LA Dimensions LA Dimension (MM) 6.3 cm 3.0-4.0 LA Volume (4C A-L) 133 ml LA Volume (BP A-L) 135 ml RA Dimensions RA Area (4C) 30.9 cm2 <=18.0 Report Signatures
--- NOTE | ~2025-07-16 | XR_ITS ---
Examination: XR chest 1V portable Clinical History: tachy, SOB Comparison: 02/03/2025 Technique: Portable AP Findings: Cardiac silhouette mildly enlarged. Mildly increased interstitial markings. Bibasilar opacities, and CP angle blunting. No acute bony abnormality. IMPRESSION: 1. Interstitial pulmonary edema and/or pneumonitis. 2. Mild bibasilar atelectasis and/or airspace disease, with possible small effusions. 3. Small pericardial effusion not excluded. Reviewed, dictated and finalized at location A. IMPRESSION: 1. Interstitial pulmonary edema and/or pneumonitis. 2. Mild bibasilar atelectasis and/or airspace disease, with possible small eff usions. 3. Small pericardial effusion not excluded.
--- NOTE | 2025-07-16 11:20 | ECG_ITS ---
Test Date: 2025-07-16 11:17:54 Measurements Intervals [place] Rate: 169 P: 0 ME: 0 QRS: 47 QRSD: 81 T: 0 QT: 263 QTc: 442 Interpretive Statements ATRIAL FIBRILLATION WITH RAPID VENTRICULAR RESPONSE NONSPECIFIC ST & T-WAVE ABNORMALITY ABNORMAL RHYTHM ECG Compared to ECG 02/03/2025 13:49:28 Sinus rhythm no longer present Short ME interval no longer present T-wave abnormality still present Electronically Signed On 07-16-2025 12:26:20 CDT by Ha Saunders M.D.
--- NOTE | 2025-07-16 11:21 | ED.GENADULT ---
HPI - General Adult General Chief complaint: Arrhythmia/Palpitations Stated complaint: CP/SOB, afib RVR History of Present Illness HPI narrative: 73 old male with prior history of kidney stones and [place] presents to the emergency department for evaluation for chest pain. Patient states he began having some shortness of breath over the past few days. Patient began having chest pain at approximately 9:00 a.m.. Patient states his last stress test was approximately 5 years ago. Patient does have a single cardiac stent and does follow-up with Dr. Gómez. Upon arrival emergency department patient was at AFib with RVR with heart rate in the 160s to 170s with a blood pressure 139/97. Patient was unaware that his heart rate was elevated is unsure how long he has had a rapid heart rate. Related Data Home Medications ?Medication ?Instructions ?Recorded ?Confirmed ?Last Taken ?Type fluticasone propionate 50 1 spray intranasal DAILY 01/22/21 07/16/25 07/16/25 09:00 History mcg/actuation nasal spray,suspension potassium citrate 10 mEq (1,080 2,160 mg PO BID 11/09/23 07/16/25 07/16/25 09:00 History mg) tablet,extended release (Urocit-K 10) aspirin 81 mg tablet,delayed 81 mg PO DAILY 01/19/25 07/16/25 07/16/25 09:00 History release Allergies Allergy/AdvReac Type Severity Reaction Status Date / Time ciprofloxacin Allergy Intermediate RASH Verified 07/16/25 11:22 budesonide (From Symbicort) Allergy Hypertensio Verified 07/16/25 11:22 n formoterol (From Symbicort) Allergy Hypertensio Verified 07/16/25 11:22 n Quinazolinones Allergy Rash Verified 07/16/25 11:22 primidone AdvReac Intermediate Confusion Verified 07/16/25 11:22 propranolol (From Inderal LA) AdvReac Confusion Verified 07/16/25 11:22 Review of Systems Review of Systems: All systems reviewed & are unremarkable except as noted in HPI and below PMFSH Past Medical History Medical History Essential tremor Myocardial infarction 2019 Mitral valve prolapse Lumbar stenosis with neurogenic claudication Lumbar spondylosis Kidney stones, calcium oxalate Normal colonoscopy 2016 Injury of right hand 2007, severe injury H/O renal calculi with removal 2012 Coronary artery disease Hypertension Pulmonary hypertension Rhinitis Unspecified asthma Central sleep apnea Bipap Surgical History Surgical History History of lumbar spinal fusion (01/2025) S/P appy 1961 Stented coronary artery proximal LAD Sep 14, 2019 S/P left knee arthroscopy 2009 H/O left inguinal hernia repair 2011 Family History Family History Mother , age 87, good health No problems noted. Grandparent Acute myocardial infarction Heart disease Grandparent Acute myocardial infarction Heart disease Other Asthma Social History Social History Social History: Lives with . Ex-smoker. No alcohol. Code status - full Surrogate decision maker - Smoking packs per day: 1 Smoking cigarettes per day: 20.0 Years smoked: 20 Smoking pack-years: 20.00 Smoking status: Former smoker Second hand tobacco smoke exposure: No Alcohol intake: never Substance use: never Substance use type: does not use Do You Feel Safe in your Home?: Yes Lack of Transportation: No Lack of Food: Never True Current Housing: I Have Housing Concerned About Future Housing: No Difficulty Paying Gas/Electric Bills: No Difficulty Paying for Meds: No Currently Unemployed: No Education: Trade/Vocational Certificate Difficulty w/ Childcare or Family Care: No Living arrangements: with family Additional living arrangements comments: Occupation/Education: retired Gender identity (if verbalized by the patient): Male Spiritual care concerns: No Agree to blood products: Yes Exam Narrative: APPEARANCE: Uncomfortable. HEAD: normocephalic, atraumatic. EYES: PERRLA/EOMI, conjunctivae clear. NOSE: Normal no drainage EARS:TMS clear with good light reflex. THROAT: Pharynx clear, no exudate. NECK: Supple. No adenopathy, no masses. RESPIRATORY: Airway patent, respirations nonlabored. Clear to auscultation bilaterally, no rales, rhonchi, wheezing. CARDIOVASCULAR: AFib with RVR ABDOMINAL: Soft, nontender, nondistended, normal bowel sounds MUSCULOSKELETAL: Moves all extremities. Strength/ROM intact, No edema, No calf tenderness. NEURO: Alert. Cranial nerves II through XII intact. Good gait. Good coordination SKIN: Warm, dry. Normal Color Course Vital Signs Vital signs: Vital Signs Temperature 97.9 F 07/16/25 11:11 Pulse Rate 162 H 07/16/25 11:11 Respiratory Rate 28 H 07/16/25 11:11 Blood Pressure 139/97 H 07/16/25 11:11 Pulse Oximetry 94 07/16/25 11:11 Oxygen Delivery Room Air 07/16/25 11:11 Temperature 98.8 F 07/16/25 16:00 Pulse Rate 120 H 07/16/25 17:19 Respiratory Rate 28 H 07/16/25 16:00 Blood Pressure 108/86 07/16/25 17:03 Pulse Oximetry 100 07/16/25 16:00 Oxygen Delivery Nasal Cannula 07/16/25 15:43 Oxygen Flow Rate 2 07/16/25 15:43 Medical Decision Making MDM Narrative Medical decision making narrative: 74-year-old male presents emergency department for evaluation for AFib with RVR with heart rate in the 180s. Patient was initially treated with a dose of 5 mg of IV Lopressor and then was treated with 2 boluses 10 mg of IV Cardizem and started on a Cardizem bolus. Patient was also treated with a L of lactated Ringer's. This did help to control the patient's heart rate. Patient's heart rate was improved to the 130s with a stable blood pressure. Patient was afebrile with no leukocytosis hemoglobin of 11.8. Patient has INR of 1.3 D-dimer of 0. Four 5. No concern for pulmonary embolism. Is no significant abnormalities on the patient's CMP. Patient's troponin was negative. Patient did have mild elevation in his proBNP and 2270. Chest x-ray does show some pulmonary edema. Case discussed with hospitalist patient was accepted to the IMU. Patient family updated the results of the workup and plan for admission. All questions concerns were addressed. Patient was well-appearing and stable at time of admission. Critical Care Procedure Note Authorized and Performed by: Syed Ocampo Total critical care time: Approximately 36 minutes Due to a high probability of clinically significant, life threatening deterioration, the patient required my highest level of preparedness to intervene emergently and I personally spent this critical care time directly and personally managing the patient. This critical care time included obtaining a history; examining the patient; pulse oximetry; ordering and review of studies; arranging urgent treatment with development of a management plan; evaluation of patient's response to treatment; frequent reassessment; and, discussions with other providers. This critical care time was performed to assess and manage the high probability of imminent, life-threatening deterioration that could result in multi-organ failure. It was exclusive of separately billable procedures and treating other patients and teaching time. Please see MDM section and the rest of the note for further information on patient assessment and treatment. Differential Diagnosis Differential Diagnosis: COVID, RSV, influenza, [place], AFib with RVR, a flutter, pulmonary embolism, pneumonia, UTI Vital Signs Vital Signs: Vital Signs Temperature 97.9 F 07/16/25 11:11 Pulse Rate 162 H 07/16/25 11:11 Respiratory Rate 28 H 07/16/25 11:11 Blood Pressure 139/97 H 07/16/25 11:11 Pulse Oximetry 94 07/16/25 11:11 Oxygen Delivery Room Air 07/16/25 11:11 Temperature 98.8 F 07/16/25 16:00 Pulse Rate 120 H 07/16/25 17:19 Respiratory Rate 28 H 07/16/25 16:00 Blood Pressure 108/86 07/16/25 17:03 Pulse Oximetry 100 07/16/25 16:00 Oxygen Delivery Nasal Cannula 07/16/25 15:43 Oxygen Flow Rate 2 07/16/25 15:43 Lab Data Lab results reviewed: Yes I reviewed the patient's lab results. 07/16/25 11:28 07/16/25 12:14 Labs: Lab Results 07/16/25 07/16/25 07/16/25 Range/Units 11:28 12:14 12:36 WBC 6.4 (4.5-10.0) K/mm3 RBC 3.63 L (4.6-6.20) M/mm3 Hgb 11.8 L (14.0-18.0) g/dL Hct 38.0 L (42.0-52.0) % MCV 104.7 H (80-100) fl MCH 32.5 (26-34) pg MCHC 31.1 L (32-36) g/dl RDW 16.0 H (11.5-14.5) % Plt Count 141 L (150-375) k/mm3 MPV 9.7 (7.4-10.4) fl Immature Gran % (Auto) 0.2 (0-0.5) % Neut % (Auto) 75.4 H (45.5-73.1) % Lymph % (Auto) 10.4 L (18.3-44.2) % [place] % (Auto) 13.5 H (2.6-8.5) % Eos % (Auto) 0.2 (0-4.4) % Baso % (Auto) 0.3 (0.2-1.2) % Lymph # (Auto) 0.67 L (0.9-3.2) K/mm3 [place] # (Auto) 0.9 H (0.1-0.6) K/mm3 Eos # (Auto) 0.0 (0-0.3) K/mm3 Baso # (Auto) 0.0 (0.0-0.1) K/mm3 Abs Immat Gran (auto) 0.01 (0.00-0.031) K/mm3 Absolute Neuts (auto) 4.9 (1.3-6.7) K/mm3 Absolute Nucleated RBC 0.000 (0.0-0.012) K/mm3 Nucleated RBC % 0.0 (0.0-0.2) % PT 16.5 H (11.1-14.7) Seconds INR 1.3 APTT 29.3 (22.3-36.8) Seconds D-Dimer 0.45 (<0.48) ug/mL Sodium 135 L (137-145) mmol/L Potassium 4.3 (3.4-5.0) mmol/L Chloride 102 (98-107) mmol/L Carbon Dioxide 25 (22-30) mmol/L Anion Gap 8 (4-12) mmol/L BUN 11 D (9-20) mg/dL Creatinine 1.06 (0.7-1.3) mg/dL Estim Creat Clear Calc 55 ml/min Estimated GFR > 60 (59 - ) Glucose 103 (65-110) mg/dL Calcium 8.9 (8.4-10.2) mg/dL Total Bilirubin 1.3 (0.2-1.3) mg/dL AST 23 (17-59) U/L ALT 17 (6-50) U/L Alkaline Phosphatase 81 (38-126) U/L Troponin I < 0.012 (0.000-0.034) ng/mL NT-Pro-B Natriuret Pep 2270 H (19.9-100) pg/mL Total Protein 8.1 (6.3-8.2) g/dL Albumin 3.7 (3.5-5.1) g/dL Urine Color Yellow (Yellow) Urine Appearance Clear (Clear) Urine pH 7.0 (5.0-9.0) Ur Specific [place] 1.012 (1.001-1.035) Urine Protein Trace (Negative) mg/dL Urine Glucose (UA) Negative (Negative) mg/dL Urine Ketones Trace H (Negative) mg/dL Ur Blood (Man) Negative (Negative) Urine Nitrate Negative (Negative) Urine Bilirubin Negative (Negative) Urine Urobilinogen 1.0 (<2.0) mg/dL Leukocyte Esterase Rfl 2+ H (Negative) TEMO/UL Urine RBC 0-2 (0-2) /hpf Urine WBC 11-20 H (0-3) /hpf Ur Squamous Epith Cells None seen (Few) /hpf Urine Bacteria None seen /hpf Urine Casts 0-2 Critical Care Time Critical Care Time Critical Care Time: Yes Total Critical Care Time: 36 Discharge Plan Discharge Clinical Impression: Atrial fibrillation with rapid ventricular response Patient Disposition: Still a Patient Condition: Serious
[2025-07-16] MEDS: METOPROLOL TARTRATE INJ 5 MG/5 ML VIAL IV PUSH (11:24)
[2025-07-16 11:42] LABS: Hematocrit 38.0 % (42.0-52.0); Hemoglobin 11.8 g/dL (14.0-18.0); Immature Granulocyte Percent A 0.2 % (0-0.5); Lymphocytes Absolute Auto 0.67 K/mm3 (0.9-3.2); Mean Corpuscular HGB Conc 31.1 g/dl (32-36); Mean Corpuscular Hemoglobin 32.5 pg (26-34); Mean Corpuscular Volume 104.7 fl (80-100); Nucleated Red Blood Cells Absolute Auto 0.000 K/mm3 (0.0-0.012); Nucleated Red Blood Cells Perc 0.0 % (0.0-0.2); Platelet Count Result 141 k/mm3 (150-375); Red Blood Count 3.63 M/mm3 (4.6-6.20); White Blood Count 6.4 K/mm3 (4.5-10.0)
[2025-07-16] MEDS: LACTATED RINGERS 1,000 ML 999 ML IV CONT (11:45)
--- OUTSIDE RECORDS SUMMARY | 2025-07-16 11:54 | XMS_ITS | Clinical Summary ---
Author Organization [facility] [address] Address [address] [place] [address] Care Team Providers Care Construction Millwright Name Role Phone Brian Viveros MD Primary [...] 40 mg tabletIndicatio ns:Coronary artery disease involving [place] coronary artery of [place] heart without angina pectoris Take 1 tablet [...] mouth daily 90 tablet 3 3 Active tamsulosin (FLOMAX) 0.4 mg extended release capsule Take 1 capsule (0.4 mg total) by mouth nightly 5 Active cyanocobalamin (Vitamin B-12) 1,000 mcg tablet Take 1 tablet (1,000 mcg total) by mouth every morning 5 Active Active Problems Problem Noted Date Diagnosed Date Left carotid bruit 03/08/2024 LEONCIO (obstructive sleep apnea) 01/18/2020 Coronary artery disease of n ative artery of [place] heart with stable angina pectoris 09/29/2019 Presence of stent in coronary artery 09/29/2019 Essential hypertension 09/11/2019 Pulmonary hypertension 09/11/2019 Nonrheumatic mitral valve regurgitation 09/11/20 19 Asthma 09/11/2019 PRESCOTT (dyspnea on exertion) 09/11/2019 PVC (premature ventricular contraction) 09/11/20 19 Snoring 09/11/2019 Hypersomnolence 09/11/2019 Tiredness 09/11/2019 Encounters Date Type Department Care Team Description 07/16/2025 Telephone [facility] Cardiology [address] [place] [address] Chu Gómez MD from Last 3 Months Surgical History Surgery Date Site/Laterality Comments ANGIOPLASTY 2019 APPENDECTOMY 1960 CATARACT EXTRACTION 2012 HERNIA REPAIR 2009 SPINE SURGERY 2024 Medical History Medical History Date Comments Hypertension Allergic rhinitis Anxiety Asthma Kidney stones Essential tremor right hand Cataract 2013 Heart disease 2019 Sleep apnea 2019 Family History Medical History Relation Name Comments Heart attack Maternal Grandfather Yan Alzheimer's disease Maternal Grandmother Arthritis Mother Anabelle natural causes Mother Anabelle Relation Name Status Comments Father Maternal Grandfather Yan Maternal Grandmother Mother Anabelle (Age 88) Sister Alive Social History Tobacco Use Types Packs/Day Years Used Date Smoking Tobacco: Former Cigarettes 1 30 1 11/11/1981 - 09/11/2012 Smokeless Tobacco: Never Tobacco Cessation:Counseling Given: Not Answered Alcohol Use Standard Drinks/Week Comments Never 0 (1 standard drink = 0.6 oz pur e alcohol) AUDIT-C Answer Date Recorded Frequency of Alcohol Consumption Never 09/11/2019 Average Number of Drinks Not on file 019 Frequency of Binge Drinking Not on file 02/2019 Sex and Gender Information Value Date Recorded Sex Assigned at Not on file Legal Sex Male 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] Well Visit 65+ 2014 Influenza Vaccine (#1) 2025 9, 08/29/2018, 08/22/2017 Insurance [facility] Care Teams Construction Millwright Relationship Specialty Start Date End Date Brian Viveros MD PCP - General Family Medicine 08/23/19
--- OUTSIDE RECORDS SUMMARY | 2025-07-16 11:54 | XMS_ITS | Clinical Summary ---
Author Organization [facility] Address [address] [place] [address] Care Team Providers Care Bottle Assembler Name Role Phone Unavailable Primary Care Provider [...] 7:34 AM CDT Height 177.8 cm (5' 10) 05/29/2013 7:34 AM CDT Body Mass Index [...]
--- OUTSIDE RECORDS SUMMARY | 2025-07-16 11:54 | XMS_ITS | Clinical Summary ---
Author Organization [facility] Address [address] [place] [address] Care Team Providers Care Vice Chair Name Role Phone Brian Viveros MD Primary Care Provider + Source Comments [facility],non-owned Affiliates and Associated Physician Practices is amultiple site organization consisting of ambulatory clinics and hospital sitesin [place], [place], [place] and [place]. This disclosure is being madepursuant to the Care Everywhere program and may not contain all information available regarding this patient. Last updated 18.[facility] Social History Tobacco Use Types Packs/Day Years Used Date Smoking Tobacco: Every Day Cigarettes Alcohol Use Standard Drinks/Week Comments No 0 (1 standard drink = 0.6 oz pur e alcohol) Sex and Gender Information Value Date Recorded Sex Assigned at Not on file Legal Sex Male 6:52 PM EXTENSION SERVICE SPECIALIST Gender Identity Not on file Sexual Orientation [...] 1999 ZOSTER VACCINE (1 of 2) 1999 Respiratory Syncytial Virus (RSV) Vaccine Pt: or over 60 yrs (1 - 1-dose 75+ series) 2024 DEPRESSION SCREENING 11/08/2024 COVID-19 VACCINE (1 - 2023-2 5 season) 2025 INFLUENZA VACCINE (#1) 2025 HEPATITIS B VACCINE Aged Out No [...] age to complete this topic Care Teams Vice Chair Relationship Specialty Start Date End Date Brian Viveros MD [address] [place] [id number] PCP - General 12/15/12
--- OUTSIDE RECORDS SUMMARY | 2025-07-16 11:54 | XMS_ITS | Encounter Summary ---
Author Organization [facility] Healthcare Address [address] [place] [id number] Care Team Providers Care Croze Cutter Helper Name Role Phone Brian Viveros MD Primary Care Prov ider Encounter Details Date Type Department Care Team (Late st Contact Info) Description 07/16/2025 Telephone [facility] Medical [facility] Cardiology [address] [place] [address] Chu Gómez MD [address] [facility] [address] [facility] [address], [address] [place] [address] Social History Tobacco Use Types Packs/Day Years [...] on file Legal Sex Male 6:23 PM DIRECTOR STAGE Gender Identity Male 02/16/2023 8:50 AM CDT Sexual Orientation Straight 02/16/2023 8: 50 AM CDT documented as of this encounter Miscellaneous Notes * Telephone Encounter - Humera Mcclendon RN - 07/16/2025 9:30 AM CDT Spoke with pt, pt reports increasing SOB since Wednesday. Pt reports SOB at rest, worse with exertion.Pt also reports cough, no lower extremity swelling, no chest pain or fever. Symptoms worsening. Pt requesting sooner appt with MAF. Pt advised to go to the ER. Pt would still like to schedule a sooner appt with MAF. Appt scheduled. Pt advised to go to the ER for evaluation. Pt verbalizes understanding. documented in this encounter Plan of Treatment Not on file documented as of this encounter Visit Diagnoses Not on filedocumented in this encounter Care Teams Croze Cutter Helper Relationship Specialty Start Date End Date Brian Viveros MD PCP - General Family Medicine 08/23/19 documented as of this encounter
[2025-07-16] MEDS: dilTIAZem 100 MG/100 ML 100 MG/100 ML BAG IV CONT (12:22)
[2025-07-16 12:30] LABS: Alanine Aminotransferase 17 U/L (6-50); Albumin Level 3.7 g/dL (3.5-5.1); Alkaline Phosphatase 81 U/L (38-126); Anion Gap 8 mmol/L (4-12); Aspartate Amino Transferase 23 U/L (17-59); Bilirubin,Total 1.3 mg/dL (0.2-1.3); Blood Urea Nitrogen 11 mg/dL (9-20); Calcium 8.9 mg/dL (8.4-10.2); Carbon Dioxide 25 mmol/L (22-30); Chloride 102 mmol/L (98-107); Estimated CRCL calculation 55 ml/min; Estimated Glomerular Filt Rate > 60; Glucose 103 mg/dL (65-110); Potassium 4.3 mmol/L (3.4-5.0); Sodium 135 mmol/L (137-145); Total Protein 8.1 g/dL (6.3-8.2)
[2025-07-16 12:32] LABS: INR 1.3; Prothrombin Time 16.5 Seconds (11.1-14.7)
[2025-07-16 12:33] LABS: Partial Thromboplastin Time 29.3 Seconds (22.3-36.8)
[2025-07-16 12:43] LABS: NT Pro B Type Natriuretic Pept 2270 pg/mL (19.9-100); Troponin I < 0.012 ng/mL (0.000-0.034)
[2025-07-16 12:48] LABS: Add Urine Microscopic? YES; Appearance Urine Clear (Clear); Glucose Urine UA Negative (Negative); Leukocyte Esterase Ur 2+ LEU/UL (Negative); Nitrate Urine Negative (Negative); Non Pathogenic Casts 0-2; Specific Grav Ur 1.012 (1.001-1.035)
--- NOTE | 2025-07-16 13:05 | PM.IMHP ---
H&P: HPI History of Present Illness Date/Time: 07/16/25 13:05 Chief Complaint: Shortness of Breath Narrative: 74 y/o M with PMH of CAD, HTN, pulmonary HTN, kidney stones, asthma, and LEONCIO on BiPAP presents here with shortness of breath. The presents here from home on 07/16 for further evaluation of chest pain and shortness of breath. He reports onset of shortness of breath 2-3 days ago. Shortness of breath has been occurring at rest. Patient then developed chest pain around 9:00 a.m. this morning. He describes chest pain as midsternal with some pain to the right side of his chest, radiation into his right jaw and ear, constant, with no aggravating or alleviating factors. Patient denies nausea, vomiting, fever, chills, diaphoresis, abdominal pain, GERD like symptoms, or palpitations. He has a cardiac history significant for coronary artery disease and a single cardiac stent. Patient follows with Dalia GUILLEN for his cardiac care. He denies any previous history of dysrhythmia. Initial VS at presentation: 97.9? F, HR 162, RR 28, 139/97, and 94% on RA. ED workup showed: No leukocytosis, hemoglobin 11.8, INR 1.3, D-dimer negative, no significant electrolyte derangements, creatinine 1.06 and GFR >60, initial troponin negative, BNP 2270. UA showed trace ketones, 2+ leuk esterase, 11-20 WBC otherwise unremarkable. CXR showed interstitial pulmonary edema and/or pneumonitis, mild bibasilar atelectasis and/or airspace disease with possible small effusions, small pericardial effusion not excluded. Initial EKG showed AFib RVR, rate 169, nonspecific ST and T-wave abnormality. Review of Systems Review of Systems: All systems reviewed & are unremarkable except as noted in HPI and below [facility] Past Medical History Medical History Essential tremor Myocardial infarction 2019 Mitral valve prolapse Lumbar stenosis with neurogenic claudication Lumbar spondylosis Kidney stones, calcium oxalate Normal colonoscopy 2016 Injury of right hand 2006, severe injury H/O renal calculi with removal 2012 Coronary artery disease Hypertension Pulmonary hypertension Rhinitis Unspecified asthma Central sleep apnea Bipap Surgical History Surgical History History of lumbar spinal fusion (01/2025) S/P appy 1961 Stented coronary artery proximal LAD Sep 14, 2019 S/P left knee arthroscopy 2009 H/O left inguinal hernia repair 2011 Family History Family History Mother , age 87, good health No problems noted. Grandparent Acute myocardial infarction Heart disease Grandparent Acute myocardial infarction Heart disease Other Asthma Social History Social History Social History: Lives with . Ex-smoker. No alcohol. Code status - full Surrogate decision maker - Smoking packs per day: 1 Smoking cigarettes per day: 20.0 Years smoked: 20 Smoking pack-years: 20.00 Smoking status: Former smoker Second hand tobacco smoke exposure: No Alcohol intake: never Substance use: never Substance use type: does not use Do You Feel Safe in your Home?: Yes Lack of Transportation: No Lack of Food: Never True Current Housing: I Have Housing Concerned About Future Housing: No Difficulty Paying Gas/Electric Bills: No Difficulty Paying for Meds: No Currently Unemployed: No Education: Trade/Vocational Certificate Difficulty w/ Childcare or Family Care: No Living arrangements: with family Additional living arrangements comments: Occupation/Education: retired Gender identity (if verbalized by the patient): Male Spiritual care concerns: No Agree to blood products: Yes Meds Home Medications and Allergies Home Medications ?Medication ?Instructions ?Recorded ?Confirmed ?Type nitroglycerin 0.4 mg sublingual 0.4 mg sublingual Q5MIN PRN Chest 09/14/19 07/16/25 Rx tablet (Nitrostat) Pain #25 tabs fluticasone propionate 50 1 spray intranasal DAILY 01/22/21 07/16/25 History mcg/actuation nasal spray,suspension potassium citrate 10 mEq (1,080 2,160 mg PO BID 11/09/23 07/16/25 History mg) tablet,extended release (Urocit-K 10) albuterol sulfate 90 mcg/actuation 2 puff inhalation QID PRN 11/14/24 07/16/25 Rx aerosol inhaler (Ventolin HFA) Shortness Of Breath #8.5 grams atorvastatin 40 mg tablet 40 mg PO DAILY #90 tabs 11/14/24 07/16/25 Rx furosemide 40 mg tablet 40 mg PO QAM #90 tabs 11/14/24 07/16/25 Rx aspirin 81 mg tablet,delayed 81 mg PO DAILY 01/19/25 07/16/25 History release cyanocobalamin (vitamin B-12) 1,000 mcg PO QAM #30 tabs 02/04/25 07/16/25 Rx 1,000 mcg tablet (Vitamin B-12) alprazolam 0.5 mg tablet (Xanax) 0.5 mg PO BID #180 tabs 04/16/25 07/16/25 Rx Allergies Allergy/AdvReac Type Severity Reaction Status Date / Time ciprofloxacin Allergy Intermediate RASH Verified 07/16/25 11:22 budesonide (From Symbicort) Allergy Hypertensio Verified 07/16/25 11:22 n formoterol (From Symbicort) Allergy Hypertensio Verified 07/16/25 11:22 n Quinazolinones Allergy Rash Verified 07/16/25 11:22 primidone AdvReac Intermediate Confusion Verified 07/16/25 11:22 propranolol (From Inderal LA) AdvReac Confusion Verified 07/16/25 11:22 Vital Signs Vital Signs - 24 hr 07/16/25 11:11 07/16/25 11:22 07/16/25 11:24 Temperature 97.9 F Pulse Rate 162 H 162 H 160 H Respiratory Rate 28 H Blood Pressure 139/97 H Pulse Oximetry 94 Oxygen Delivery Room Air Oxygen Flow Rate 07/16/25 11:24 07/16/25 11:46 07/16/25 12:10 Temperature Pulse Rate 130 H 138 H Respiratory Rate 19 17 Blood Pressure 94/78 L 103/74 Pulse Oximetry 98 100 98 Oxygen Delivery Nasal Cannula Oxygen Flow Rate 2 07/16/25 12:20 07/16/25 12:22 07/16/25 12:46 Temperature Pulse Rate 127 H 130 H 127 H Respiratory Rate 19 20 Blood Pressure 108/67 108/67 106/75 Pulse Oximetry 97 100 Oxygen Delivery Oxygen Flow Rate 07/16/25 12:47 Temperature Pulse Rate 142 H Respiratory Rate Blood Pressure 106/75 Pulse Oximetry Oxygen Delivery Oxygen Flow Rate Exam Const: General: comfortable and no acute distress Other: , male, nontoxic appearance HENMT: Face/Nose/Sinus: Normal nares present Mouth: Yes moist mucous membranes Eyes: General: appearance normal, both eyes and all related structures Sclera: sclerae normal Pupils: Equal, round and reactive pupils present EOM: EOMs intact bilaterally Resp: Effort & Inspection: normal respiratory effort Auscultation: clear to auscultation bilaterally Cardio: Rate: tachycardic (Consistent with AFib RVR) Rhythm: abnormal rhythm Other: No appreciable murmur GI: Other: Abdomen soft, nondistended, nontender. Normoactive bowel sounds in all quadrants. Skin: General skin exam: normal color and no rashes or lesions noted Wounds: no wounds Neuro: Speech: normal speech Motor exam (neuro): 5/5 motor strength present throughout Sensory Exam: normal sensation Other: A&O x4 Extrem: Other: No peripheral edema, mild swelling to left knee with brace in place. Psych: Mental Status: mental status grossly normal Affect: normal affect Other: Good insight and judgment, very pleasant H&P: Results Labs Labs: Short CBC 07/16/25 Range/Units 11:28 WBC 6.4 (4.5-10.0) K/mm3 Hgb 11.8 L (14.0-18.0) g/dL Hct 38.0 L (42.0-52.0) % Plt Count 141 L (150-375) k/mm3 BMP 07/16/25 12:14 Sodium 135 L Potassium 4.3 Chloride 102 Carbon Dioxide 25 BUN 11 D Creatinine 1.06 Glucose 103 Calcium 8.9 Cardiac Enzymes 07/16/25 Range/Units 12:14 Troponin I < 0.012 (0.000-0.034) ng/mL Liver Function 07/16/25 Range/Units 12:14 Total Bilirubin 1.3 (0.2-1.3) mg/dL AST 23 (17-59) U/L ALT 17 (6-50) U/L Alkaline Phosphatase 81 (38-126) U/L Albumin 3.7 (3.5-5.1) g/dL Urine 07/16/25 Range/Units 12:36 Urine Color Yellow (Yellow) Urine Appearance Clear (Clear) Urine pH 7.0 (5.0-9.0) Ur Specific Sie[place] 1.012 (1.001-1.035) Urine Protein Trace (Negative) mg/dL Urine Glucose (UA) Negative (Negative) mg/dL Assessment and Plan Assessment and plan (1) Atrial fibrillation with RVR: Code(s): I48.91 - Unspecified atrial fibrillation Status: Acute Assessment and Plan: Initial EKG showed AFib RVR rate 169. No previous history of dysrhythmia. Poor response to metoprolol IV in the ED. Started on diltiazem gtt. Unclear onset, however has been short of breath a few days prior to admission on 07/16. - diltiazem gtt started on 07/16 (HR 160s/180s -> 130's, partial resolution of symptoms including chest pain and shortness of breath) - CHADsVasc: 3 -> started on Eliquis 5 mg b.i.d., 1st dose tonight - cardiology consulted Plan for ELVI/CV tomorrow with anesthesia In the meantime, continue diltiazem drip for rate control. - check TSH - BNP elevated, last echo in 2021. See below. - admission to IMU for close telemetry monitoring (2) Shortness of breath: Code(s): R06.02 - Shortness of breath Status: Acute Assessment and Plan: - new onset CHF versus shortness of breath secondary to AFib RVR or combination there of? - CXR: 1. Interstitial pulmonary edema and/or pneumonitis. 2. Mild bibasilar atelectasis and/or airspace disease, with possible small effusions. 3. Small pericardial effusion not excluded. - BNP 2270 upon admission - most recent echo (2021): Normal LV size, hyperdynamic LV function, EF measured at 73%, severe enlargement of left atrium, trace to mild valvular disease. - on Lasix 40 mg p.o. daily. Based off clinical exam patient appears euvolemic, will hold off on increasing diuresis at this time. - monitor I&Os and daily weights - trend renal function - new O2 requirement, 2L NC. continue to maintain O2 sat greater than 92% (3) Chest pain: Qualifiers: Chest pain type: unspecified Qualified Code(s): R07.9 - Chest pain, unspecified Code(s): R07.9 - Chest pain, unspecified Status: Acute Assessment and Plan: - EKG showed AFib RVR, rate in the 160s - Troponin: <0.012, 3 hour ordered - cardiology consulted - high suspicion for chest pain secondary to AFib RVR as the patient's symptoms have improved with decreasing heart rate - telemetry monitoring (4) Unspecified asthma: Qualifiers: Asthma complication type: unspecified Asthma persistence: unspecified Asthma severity: unspecified severity Qualified Code(s): J45.909 - Unspecified asthma, uncomplicated Code(s): J45.909 - Unspecified asthma, uncomplicated Status: Chronic Assessment and Plan: - no evidence of acute exacerbation - continue home medication(s) (5) Hypertension: Qualifiers: Hypertension type: primary hypertension Qualified Code(s): I10 - Essential (primary) hypertension Code(s): I10 - Essential (primary) hypertension Status: Chronic Assessment and Plan: - chronic, currently 115/86 - patient on Lasix, continued - monitor (6) Central sleep apnea: Code(s): G47.31 - Primary central sleep apnea Status: Chronic Assessment and Plan: - continue home CPAP Plan Diet: heart healthy GI Prophylaxis: n/a DVT Prophylaxis: IV fluids: 1L bolus in ED Lines/Tubes: peripheral IV Code Status: full code Quality VTE Prophylaxis VTE prophylaxis: pharmacologic ordered Hospitalist MIPS Advance Care Plan I have confirmed that the patient's Advanced Care Plan is present, code status is documented, or surrogate decision maker is listed in patient medical record.: Yes Medication Reconciliation I have utilized all available resources to obtain, update and review the patients current medications (includes all prescriptions, OTC, herbals, cannabis, and nutritional supplements).: Yes
--- NOTE | 2025-07-16 14:01 | ADMGEN ---
This patient, Stephane Blackburn, was admitted to IMU Room 202-. Patient/family oriented to hospital policies and general routines including ID bracelet, bed and alarms, visiting hours, pain management, procedures, bathroom and other care routines, personal items, smoking policy, room service/diet, and visiting hours. Information on how to activate the Rapid Response Team has been discussed. Patient/Family are encouraged to report perceived risks to care and to ask questions if they do not understand what they are told or what they should do.
--- NOTE | 2025-07-16 14:02 | P.CONCA_ITS ---
Assessment and Plan Assessment and plan (1) Atrial fibrillation with RVR: Code(s): I48.91 - Unspecified atrial fibrillation Status: Acute Assessment and Plan: 74-year-old male presenting with a chief complaint of shortness of breath found to be in atrial fibrillation with rapid ventricular response. This is a new diagnosis. I discussed the diagnosis of atrial fibrillation including pathophysiology, management strategies including rate versus rhythm control, risks/complications. Since this is his 1st known occurrence of atrial fibrillation, preference to make an attempt to restore sinus rhythm. * Plan for ELVI/CV tomorrow with anesthesia * In the meantime, continue diltiazem drip for rate control. Can increase diltiazem to 15 milligrams/hour if needed and SBP >100 * Give digoxin 250mcg IV push now for additional rate control * He has a CHADS2 Vasc score of 3 (age, coronary disease, hypertension) anticoagulation is indicated. Will start Eliquis 5 mg b.i.d., 1st dose tonight * Echocardiogram is being performed * Perhaps some CHF related to tachycardia. Chest x-ray with interstitial edema and possible small pleural effusions. Will start furosemide 40 mg IV daily 1st dose now. * Supplemental oxygen Plan and recommendations discussed with Dr. Saunders (2) Coronary artery disease: Code(s): I25.10 - Atherosclerotic heart disease of [place] coronary artery without angina pectoris Status: Acute Assessment and Plan: Appears to be stable. Continue aspirin, statin. (3) Hypertension: Qualifiers: Hypertension type: primary hypertension Qualified Code(s): I10 - Essential (primary) hypertension Code(s): I10 - Essential (primary) hypertension Status: Chronic Assessment and Plan: Stable, at goal (4) Pure hypercholesterolemia, unspecified: Code(s): E78.00 - Pure hypercholesterolemia, unspecified Status: Acute Assessment and Plan: Continue statin (5) Chest pain: Qualifiers: Chest pain type: unspecified Qualified Code(s): R07.9 - Chest pain, unspecified Code(s): R07.9 - Chest pain, unspecified Status: Acute Assessment and Plan: Probably related to tachycardia. Troponin negative. History of Present Illness History of Present Illness Consult date/time: 07/16/25 14:02 Requesting physician: Nimisha Wallace APRN Consult reason: atrial fibrillation Reason For Visit: afib with rvr Narrative: Stephane Blackburn is a 74-year-old male with coronary artery disease status post LAD stenting in 2019. This is a patient who is followed in our office by Dr. Gómez. He comes to the hospital with a chief complaint of shortness of breath. Cardiology is consulted for atrial fibrillation with rapid ventricular response. He reports noticing increased shortness of breath beginning on Wednesday of last week. Because of ongoing shortness of breath without relief from his albuterol, he decided to come to the emergency department for evaluation. He did have 1 episode of chest discomfort this morning which has resolved. He denies any palpitations, swelling, orthopnea, syncope, or presyncope. He has been given IV push metoprolol and diltiazem and has been placed on a diltiazem drip. His heart rate remains elevated in the 130s to 150s. At the time of my evaluation he appears comfortable and his only complaint is dyspnea. Review of Systems 2 Review of Systems: All systems reviewed & are unremarkable except as noted in HPI and below PMFSH Past Medical History Medical History Essential tremor Myocardial infarction 2019 Mitral valve prolapse Lumbar stenosis with neurogenic claudication Lumbar spondylosis Kidney stones, calcium oxalate Normal colonoscopy 2016 Injury of right hand 2007, severe injury H/O renal calculi with removal 2012 Coronary artery disease Hypertension Pulmonary hypertension Rhinitis Unspecified asthma Central sleep apnea Bipap Surgical History Surgical History History of lumbar spinal fusion (01/2025) S/P appy 196 Stented coronary artery proximal LAD Sep 14, 2019 S/P left knee arthroscopy 2009 H/O left inguinal hernia repair 2011 Family History Family History Mother , age 87, good health No problems noted. Grandparent Acute myocardial infarction Heart disease Grandparent Acute myocardial infarction Heart disease Other Asthma Social History Social History Social History: Lives with . Ex-smoker. No alcohol. Code status - full Surrogate decision maker - Smoking packs per day: 1 Smoking cigarettes per day: 20.0 Years smoked: 20 Smoking pack-years: 20.00 Smoking status: Former smoker Second hand tobacco smoke exposure: No Alcohol intake: never Substance use: never Substance use type: does not use Do You Feel Safe in your Home?: Yes Lack of Transportation: No Lack of Food: Never True Current Housing: I Have Housing Concerned About Future Housing: No Difficulty Paying Gas/Electric Bills: No Difficulty Paying for Meds: No Currently Unemployed: No Education: Trade/Vocational Certificate Difficulty w/ Childcare or Family Care: No Living arrangements: with family Additional living arrangements comments: Occupation/Education: retired Gender identity (if verbalized by the patient): Male Spiritual care concerns: No Agree to blood products: Yes Meds Home Medications and Allergies Home Medications ?Medication ?Instructions ?Recorded ?Confirmed ?Type nitroglycerin 0.4 mg sublingual 0.4 mg sublingual Q5MI N PRN Chest 09/14/19 07/16/25 Rx tablet (Nitrostat) Pain #25 tabs fluticasone propionate 50 1 spray intranasal DAILY 07/16/25 History mcg/actuation nasal spray,suspension potassium citrate 10 mEq (1,080 2,160 mg PO BID 07/16/25 History mg) tablet,extended release (Urocit-K 10) albuterol sulfate 90 mcg/actuation 2 puff inhalation Q ID PRN 11/14/24 07/16/25 Rx aerosol inhaler (Ventolin HFA) Shortness Of Breath #8. 5 grams atorvastatin 40 mg tablet 40 mg PO DAILY #90 tabs 06/0107/16/25 Rx furosemide 40 mg tablet 40 mg PO QAM #90 tabs 07/16/25 Rx aspirin 81 mg tablet,delayed 81 mg PO DAILY 01/19/25 0 07/16/25 History release cyanocobalamin (vitamin B-12) 1,000 mcg PO QAM #30 tab s 02/04/25 07/16/25 Rx 1,000 mcg tablet (Vitamin B-12) alprazolam 0.5 mg tablet (Xanax) 0.5 mg PO BID #180 ta bs 04/16/25 07/16/25 Rx Allergies Allergy/AdvReac Type Severity Reaction Status Date / Time ciprofloxacin Allergy Intermediate RASH Verified 07/16/25 11:22 budesonide (From Symbicort) Allergy Hypertensio Verified 07/16/25 11:22 n formoterol (From Symbicort) Allergy Hypertensio Verified 07/16/25 11:22 n Quinazolinones Allergy Rash Verified 07/16/25 11:22 primidone AdvReac Intermediate Confusion Verified 07/16/25 11:22 propranolol (From Inderal LA) AdvReac Confusion Verified 07/16/25 11:22 Vital Signs Vital Signs - 24 hr 07/16/25 11:11 07/16/25 11:22 07/16/25 11:24 Temperature 36.6 C Pulse Rate 162 H 162 H 160 H Respiratory Rate 28 H Blood Pressure 139/97 H Pulse Oximetry 94 Oxygen Delivery Room Air Oxygen Flow Rate 07/16/25 11:24 07/16/25 11:46 07/16/25 12:10 Temperature Pulse Rate 130 H 138 H Respiratory Rate 19 17 Blood Pressure 94/78 L 103/74 Pulse Oximetry 98 100 98 Oxygen Delivery Nasal Cannula Oxygen Flow Rate 2 07/16/25 12:20 07/16/25 12:22 07/16/25 12:46 Temperature Pulse Rate 127 H 130 H 127 H Respiratory Rate 19 20 Blood Pressure 108/67 108/67 106/75 Pulse Oximetry 97 100 Oxygen Delivery Oxygen Flow Rate 07/16/25 12:47 07/16/25 13:13 07/16/25 13:14 Temperature Pulse Rate 142 H 137 H 133 H Respiratory Rate 21 H Blood Pressure 106/75 119/83 119/83 Pulse Oximetry 98 Oxygen Delivery Oxygen Flow Rate 07/16/25 13:24 07/16/25 13:29 07/16/25 13:41 Temperature 36.9 C Pulse Rate 133 H 140 H 131 H Respiratory Rate 20 16 Blood Pressure 115/86 115/86 109/91 H Pulse Oximetry 100 99 Oxygen Delivery Oxygen Flow Rate Exam 2 Const: General: comfortable, no acute distress, alert and awake O rientation/consciousness: patient oriented x3 HENMT: Head: normal to inspection Eyes: General: appearance normal, both eyes and all related structures P upils: Equal, round and reactive pupils present Neck: Neck: normal visual inspection, supple and no JVD Carotids: normal carotid upstroke Resp: Effort & Inspection: normal respiratory effort Auscultation: no rales, wheezes and diminished lung sounds Cardio: Rate: tachycardic Rhythm: abnormal rhythm irregularly irregular Heart sounds: S1 normal heart sound present, S2 normal heart sound present and no murmurs GI: Auscultation: normal bowel sounds Skin: General skin exam: normal color Neuro: General: patient oriented x3 Cranial nerves: Yes Equal, round and reactive pupils present Extrem: General: normal to inspection Psych: Appearance: grossly normal Mental Status: mental status grossly normal Results Labs and Meds 07/16/25 11:28 07/16/25 12:14 Lab results: Cardiac Enzymes 07/16/25 Range/Units 12:14 AST 23 (17-59) U/L Troponin I < 0.012 (0.000-0.034) ng/mL Coagulation 07/16/25 Range/Units 12:14 PT 16.5 H (11.1-14.7) Seconds APTT 29.3 (22.3-36.8) Seconds CBC 07/16/25 Range/Units 11:28 WBC 6.4 (4.5-10.0) K/mm3 RBC 3.63 L (4.6-6.20) M/mm3 Hgb 11.8 L (14.0-18.0) g/dL Hct 38.0 L (42.0-52.0) % Plt Count 141 L (150-375) k/mm3 Lymph # (Auto) 0.67 L (0.9-3.2) K/mm3 [place] # (Auto) 0.9 H (0.1-0.6) K/mm3 Eos # (Auto) 0.0 (0-0.3) K/mm3 Baso # (Auto) 0.0 (0.0-0.1) K/mm3 Comprehensive Metabolic Panel 07/16/25 Range/Units 12:14 Sodium 135 L (137-145) mmol/L Potassium 4.3 (3.4-5.0) mmol/L Chloride 102 (98-107) mmol/L Carbon Dioxide 25 (22-30) mmol/L BUN 11 D (9-20) mg/dL Creatinine 1.06 (0.7-1.3) mg/dL Glucose 103 (65-110) mg/dL Calcium 8.9 (8.4-10.2) mg/dL AST 23 (17-59) U/L ALT 17 (6-50) U/L Alkaline Phosphatase 81 (38-126) U/L Total Protein 8.1 (6.3-8.2) g/dL Albumin 3.7 (3.5-5.1) g/dL Intake and Output 07/15/25 07/16/25 07/16/25 23:59 07:59 15:59 Intake Total 1008.0 Balance 1008.0 Intake: IV 1008.0 Lactated Ringers 1,000 ml @ 999 1000 mls/hr IV CONT .Q1H1M STA Rx#: [id number] dilTIAZem 100 MG/100 ML 100 mg 8.0 In 100 ml @ 5 MG/HR 5 mls/hr IV CONT .Q20H STA Rx#:[id number] Patient Weight 07/16/25 23:59 Weight 87.9 kg
[2025-07-16] MEDS: PERFLUTREN LIPID MICROSPHERES 1.5 ML VIAL DILUTED TO 10 ML TOTAL VOLUME IV PUSH (14:53)
[2025-07-16] MEDS: DIGOXIN INJ 250 MCG/ML 2 ML AMP (*BKC) IV PUSH (14:59)
[2025-07-16] MEDS: FUROSEMIDE INJ 40 MG/4 ML VIAL IV PUSH (14:59)
--- NOTE | 2025-07-16 15:09 | IVDEFINITY ---
Prior to administration of IV Definity the patient was educated on the risks and benefits of the imaging enhancing agent including potential adverse side effects. The patient verbalized understanding. Allergies were verified. No exclusion criteria were identified and at least one of the following inclusion criteria were met: 1) physician request, 2) patient technically difficult to image (per the [place] [employer] guidelines of two or more segments not discernable within the apical view), or 3) questionable left ventricular function. ?
--- NOTE | 2025-07-16 15:39 | PCRCNOTE ---
WILMAR performed assessed pt bipap/cpap needs. Per pt he does not wish to have a hospital unit during this stay. WILMAR informed the patient to let his RN know if he changes his mind.
[2025-07-16 16:15] LABS: Troponin I < 0.012 ng/mL (0.000-0.034)
[2025-07-16] MEDS: POTASSIUM CITRATE 5 MEQ TAB CR 10 MEQ PO (17:59)
[2025-07-16] MEDS: ALPRAZolam (*CRX) 0.5 MG TABLET PO (17:59)
[2025-07-16] MEDS: dilTIAZem 100 MG/100 ML 100 MG/100 ML BAG 15 MG IV CONT (19:21)
[2025-07-16] MEDS: APIXABAN 5 MG TABLET PO (22:03)
[2025-07-17] VITALS (23 sets, daily range): BP systolic 92–131; BP diastolic 66–84; PULSE 61–146; RESP 14–26; TEMP 36.6–37.2; O2SAT 93–100
--- NOTE | 2025-07-17 | ECHO_ITS ---
Patient Info Name: Stephane Blackburn Age: 74 years : 1950 Gender: Male Ht: 70 in Wt: 193 lbs BSA: 2.10 m2 Exam Date: 07/17/2025 11:56 AM Patient Status: I Admit Date: 07/17/2025 Exam Type: CA echo transesophageal Staff Referring Physician: Syed Ocampo Attending Provider: Celestina Farrell Summary 1. The left ventricle is normal size with severely reduced systolic function. 2. The right ventricle is normal size with reduced systolic function. 3. There is severe biatrial enlargement. 4. There is no thrombus in the left atrial appendage. 5. Pulse wave velocity is 21 cm/s. 6. The mitral valve is normal. There is mild mitral regurgitation. 7. There is minimal plaque in the visualized portions of the aorta. Complications There were no complication prior to, during or in recovery from the transesophageal echocardiogram. Medications Sedation was provided by anesthesia team. After confirmation that there is no left atrial appendage thrombus, patient was started on amiodarone 150 mg IV bolus over 10 minutes. Procedure Details The patient arrived in a fasting state after obtaining informed consent. The transesophageal probe was passed into the posterior pharynx, mid-esophagus, and distal esophagus. Imaging was performed at multiple levels. The patient tolerated the procedure well and there were no complications. The patient was transferred out of the examination area in satisfactory condition. Left Ventricle The left ventricle is normal size with severely reduced systolic function. Right Ventricle The right ventricle is normal size with reduced systolic function. Left Atria The left atrium is severely dilated. Right Atria The right atrium is severely dilated. Atrial Septum The atrial septum is intact. Atrial Appendage There is no thrombus in the left atrial appendage. Pulse wave velocity is 21 cm/s. Aortic Valve The aortic valve is trileaflet and sclerotic. There is no aortic stenosis. There is no aortic regurgitation. Pulmonic Valve The pulmonic valve is normal. There is no pulmonic valve regurgitation. Mitral Valve The mitral valve is normal. There is mild mitral regurgitation. Tricuspid Valve The tricuspid valve is normal. There is moderate tricuspid regurgitation. Pericardium/Pleural There is no pericardial effusion. Aorta There is minimal plaque in the visualized portions of the aorta. Report Signatures
[2025-07-17] MEDS: dilTIAZem 100 MG/100 ML 100 MG/100 ML BAG 15 MG IV CONT ×2 (01:26→08:34)
[2025-07-17 04:25] LABS: Hematocrit 33.1 % (42.0-52.0); Hemoglobin 10.5 g/dL (14.0-18.0); Immature Granulocyte Percent A 0.3 % (0-0.5); Lymphocytes Absolute Auto 0.76 K/mm3 (0.9-3.2); Mean Corpuscular HGB Conc 31.7 g/dl (32-36); Mean Corpuscular Hemoglobin 32.8 pg (26-34); Mean Corpuscular Volume 103.4 fl (80-100); Nucleated Red Blood Cells Absolute Auto 0.000 K/mm3 (0.0-0.012); Nucleated Red Blood Cells Perc 0.0 % (0.0-0.2); Platelet Count Result 123 k/mm3 (150-375); Red Blood Count 3.20 M/mm3 (4.6-6.20); White Blood Count 5.8 K/mm3 (4.5-10.0)
[2025-07-17 05:02] LABS: Alanine Aminotransferase 14 U/L (6-50); Albumin Level 3.5 g/dL (3.5-5.1); Alkaline Phosphatase 75 U/L (38-126); Anion Gap 9 mmol/L (4-12); Aspartate Amino Transferase 18 U/L (17-59); Bilirubin,Total 1.9 mg/dL (0.2-1.3); Blood Urea Nitrogen 13 mg/dL (9-20); Calcium 8.7 mg/dL (8.4-10.2); Carbon Dioxide 22 mmol/L (22-30); Chloride 104 mmol/L (98-107); Estimated CRCL calculation 57 ml/min; Estimated Glomerular Filt Rate > 60; Glucose 101 mg/dL (65-110); Potassium 3.7 mmol/L (3.4-5.0); Sodium 135 mmol/L (137-145); Total Protein 7.6 g/dL (6.3-8.2)
[2025-07-17 05:15] LABS: Thyroid Stimulating Hormone Reflex 2.930 uIU/mL (0.465-4.68)
--- NOTE | 2025-07-17 08:17 | PM.IMPN ---
Progress Note: A&P Assessment and Plan (1) Atrial fibrillation with RVR: Code(s): I48.91 - Unspecified atrial fibrillation Status: Acute (2) Shortness of breath: Code(s): R06.02 - Shortness of breath Status: Acute (3) Chest pain: Qualifiers: Chest pain type: unspecified Qualified Code(s): R07.9 - Chest pain, unspecified Code(s): R07.9 - Chest pain, unspecified Status: Acute (4) Unspecified asthma: Qualifiers: Asthma complication type: unspecified Asthma persistence: unspecified Asthma severity: unspecified severity Qualified Code(s): J45.909 - Unspecified asthma, uncomplicated Code(s): J45.909 - Unspecified asthma, uncomplicated Status: Chronic (5) Hypertension: Qualifiers: Hypertension type: primary hypertension Qualified Code(s): I10 - Essential (primary) hypertension Code(s): I10 - Essential (primary) hypertension Status: Chronic (6) Central sleep apnea: Code(s): G47.31 - Primary central sleep apnea Status: Chronic Plan This is a 73-year-old male who presented to the ED with chest pain and shortness of breath over the past few days. Chest pain started approximately 9:00 a.m. 07/16/2025. He has a history of coronary artery disease status post stent x1 in 2019. Upon arrival to the ED he was noted to be tachycardic in 160s. Blood pressure was adequate. EKG showed AFib with RVR. He received 5 mg of IV low pressure followed by 2 boluses 10 mg IV Cardizem and was started on Cardizem drip. Heart rate improved somewhat to 130s with stable blood pressure. Laboratory workup revealed WBC of 6.4 hemoglobin 11.8 platelet count 141. Chem panel showed sodium of 135 potassium 4.3 chloride 102 bicarbonate 25 BUN 11 creatinine 1 blood glucose of home 103. Troponin was negative less than 0.012 BNP was elevated at 2270. LFTs were normal. Urinalysis showed 11-20 urine WBC with positive leukocyte esterase. Serial troponin remained negative Chest x-ray showed interstitial pulmonary edema and/or pneumonitis mild bibasilar atelectasis and/or airspace disease with possible small effusions small pericardial effusion not excluded. D-dimer was negative. Patient was started on Eliquis for anticoagulation. Cardiology was consulted and is planned for ELVI cardioversion. Also received a dose of digoxin 250 mcg x1. Plan for ELVI cardioversion this a.m. New onset congestive heart failure likely secondary to AFib with RVR. Started on IV Lasix. Recent echocardiogram 2021 normal LV size hyperdynamic LV function EF measured at 73% severe enlargement of left atrium trace to mild valvular disease. Mild hypoxic respiratory failure requiring oxygen supplementation via nasal cannula continue with IV Lasix History of asthma with no signs of exacerbation continue home medication Hypertension home medication Lumbar stenosis with neurogenic claudication, history of lumbar fusion 01/2025 History of kidney stones Coronary artery disease status post stent 2019 proximal LAD Sleep apnea on CPAP DVT prophylaxis on Eliquis Code status full code Subjective Date/time seen: 07/17/25 08:17 Interval history: No overnight events. Remains in AFib with RVR. Chart reviewed. Denies any chest pain or shortness of breath. Minimal cough Review of Systems Review of Systems: All systems reviewed & are unremarkable except as noted in HPI and below Exam Narrative: APPEARANCE: Alert and oriented x3, no acute distress HEAD: normocephalic, atraumatic. EYES: PERRLA/EOMI, conjunctivae clear. NECK: Supple. No adenopathy, no masses. RESPIRATORY: Airway patent, respirations nonlabored. Clear to auscultation bilaterally, no rales, rhonchi, wheezing. CARDIOVASCULAR: AFib with RVR on telemetry, ABDOMINAL: Soft, nontender, nondistended, normal bowel sounds MUSCULOSKELETAL: Moves all extremities. Strength/ROM intact, No edema, No calf tenderness. NEURO: Alert. Cranial nerves II through XII intact. Good gait. Good coordination SKIN: Warm, dry. Normal Color Objective Data Vital Signs Vital Signs: Vital Signs - 24 hr 07/16/25 11:11 07/16/25 11:22 07/16/25 11:24 Temperature 97.9 F Pulse Rate 162 H 162 H 160 H Respiratory Rate 28 H Blood Pressure 139/97 H Pulse Oximetry 94 Oxygen Delivery Room Air Oxygen Flow Rate 07/16/25 11:24 07/16/25 11:46 07/16/25 12:10 Temperature Pulse Rate 130 H 138 H Respiratory Rate 19 17 Blood Pressure 94/78 L 103/74 Pulse Oximetry 98 100 98 Oxygen Delivery Nasal Cannula Oxygen Flow Rate 2 07/16/25 12:20 07/16/25 12:22 07/16/25 12:46 Temperature Pulse Rate 127 H 130 H 127 H Respiratory Rate 19 20 Blood Pressure 108/67 108/67 106/75 Pulse Oximetry 97 100 Oxygen Delivery Oxygen Flow Rate 07/16/25 12:47 07/16/25 13:13 07/16/25 13:14 Temperature Pulse Rate 142 H 137 H 133 H Respiratory Rate 21 H Blood Pressure 106/75 119/83 119/83 Pulse Oximetry 98 Oxygen Delivery Oxygen Flow Rate 07/16/25 13:24 07/16/25 13:29 07/16/25 13:41 Temperature 98.4 F Pulse Rate 133 H 140 H 131 H Respiratory Rate 20 16 Blood Pressure 115/86 115/86 109/91 H Pulse Oximetry 100 99 Oxygen Delivery Oxygen Flow Rate 07/16/25 14:00 07/16/25 14:59 07/16/25 15:39 Temperature Pulse Rate 150 H 130 H Respiratory Rate Blood Pressure 125/85 Pulse Oximetry Oxygen Delivery Oxygen Flow Rate 07/16/25 15:42 07/16/25 15:43 07/16/25 16:00 Temperature Pulse Rate 150 H 152 H Respiratory Rate Blood Pressure 125/85 Pulse Oximetry 99 Oxygen Delivery Nasal Cannula Oxygen Flow Rate 2 07/16/25 16:00 07/16/25 16:04 07/16/25 17:03 Temperature 98.8 F Pulse Rate 151 H 145 H Respiratory Rate 28 H Blood Pressure 113/81 108/86 Pulse Oximetry 100 Oxygen Delivery Oxygen Flow Rate 07/16/25 17:19 07/16/25 18:00 07/16/25 18:00 Temperature Pulse Rate 120 H 114 H 114 H Respiratory Rate Blood Pressure Pulse Oximetry Oxygen Delivery Oxygen Flow Rate 07/16/25 19:21 07/16/25 19:47 07/16/25 20:00 Temperature 99.0 F Pulse Rate 101 H 115 H 121 H Respiratory Rate 26 H Blood Pressure 107/73 107/73 Pulse Oximetry 97 Oxygen Delivery Oxygen Flow Rate 07/16/25 20:00 07/16/25 20:00 07/16/25 22:00 Temperature Pulse Rate 128 H 102 H Respiratory Rate Blood Pressure 101/66 Pulse Oximetry 97 Oxygen Delivery Nasal Cannula Oxygen Flow Rate 2 07/16/25 22:00 07/16/25 22:00 07/17/25 00:00 Temperature 98.9 F Pulse Rate 102 H 102 H 105 H Respiratory Rate 26 H Blood Pressure 101/66 100/66 Pulse Oximetry 100 96 Oxygen Delivery Oxygen Flow Rate 07/17/25 00:00 07/17/25 00:00 07/17/25 00:00 Temperature Pulse Rate 93 93 Respiratory Rate Blood Pressure 100/66 Pulse Oximetry 100 Oxygen Delivery Nasal Cannula Oxygen Flow Rate 2 07/17/25 01:26 07/17/25 01:26 07/17/25 02:00 Temperature Pulse Rate 99 99 96 Respiratory Rate Blood Pressure 105/76 Pulse Oximetry Oxygen Delivery Oxygen Flow Rate 07/17/25 02:00 07/17/25 02:00 07/17/25 03:49 Temperature 98.8 F Pulse Rate 96 96 116 H Respiratory Rate 26 H Blood Pressure 105/76 113/79 Pulse Oximetry 96 99 Oxygen Delivery Oxygen Flow Rate 07/17/25 04:00 07/17/25 04:00 07/17/25 04:00 Temperature Pulse Rate 109 H 109 H Respiratory Rate Blood Pressure 113/79 Pulse Oximetry 99 Oxygen Delivery Nasal Cannula Oxygen Flow Rate 2 07/17/25 06:00 07/17/25 06:00 07/17/25 06:00 Temperature Pulse Rate 129 H 129 H 129 H Respiratory Rate Blood Pressure 128/83 128/83 Pulse Oximetry 96 Oxygen Delivery Oxygen Flow Rate 07/17/25 07:44 Temperature 98.0 F Pulse Rate 146 H Respiratory Rate 24 H Blood Pressure 108/84 Pulse Oximetry 97 Oxygen Delivery Oxygen Flow Rate Intake/Output Intake/Output: Intake & Output 07/14/25 07/15/25 07/16/25 07/17/25 23:59 23:59 23:59 23:59 Intake Total 1700.0 120.0 Output Total 1650 475 Balance 50.0 -355.0 Meds/Results Medications: Active Medications Generic Name Dose Route Start Last Admin Trade Name Freq PRN Reason Stop Dose Admin Acetaminophen 650 mg 07/16/25 13:28 Acetaminophen 325 Mg Tablet PO Q4H PRN Mild Pain (1-3) or Fever Albuterol 2 puff 07/16/25 15:57 Albuterol Sulfate (*Sp) Aerosol 1 Puff INHALATION QIDRT PRN Shortness Of Breath Alprazolam 0.5 mg 07/16/25 17:00 07/16/25 17:59 Alprazolam (*Crx) 0.5 Mg Tablet PO 0.5 mg BID NEIL Administration Apixaban 5 mg 07/16/25 21:00 07/16/25 22:03 Apixaban 5 Mg Tablet PO 5 mg Q12HR NEIL Administration Aspirin 81 mg 07/17/25 09:00 Aspirin 81 Mg Enteric Tablet PO DAILY [facility] Atorvastatin Calcium 40 mg 07/17/25 09:00 Atorvastatin 40 Mg Tablet PO DAILY NEIL Bisacodyl 5 mg 07/16/25 13:28 Bisacodyl 5 Mg Tablet Ec PO DAILY PRN Constipation Cyanocobalamin 1,000 mcg 07/17/25 09:00 Cyanocobalamin 1,000 Mcg Tablet PO QAM [facility] Fluticasone Propionate 1 spray 07/17/25 09:00 Fluticasone Propionate 0.05% Na Spr 16 Gm Btl (*Bkc) NASAL DAILY [facility] Furosemide 40 mg 07/16/25 14:30 07/16/25 14:59 Furosemide Inj 40 Mg/4 Ml Vial IV PUSH 40 mg DAILY NEIL Administration Furosemide 40 mg 07/17/25 09:00 Furosemide 40 Mg Tablet PO QAM [facility] Diltiazem HCl 100 mg in 100 mls @ 15 mls/hr 07/16/25 19:10 07/17/25 06:00 Cardizem 100 Mg/100 Ml IV CONT 15 mg/hr .Q6H40M NEIL 15 mls/hr 15 MG/HR Infusion Nitroglycerin 0.4 mg 07/16/25 15:57 Nitroglycerin Sl 0.4 Mg Tablet SUBLINGUAL Q5MIN PRN Chest Pain Ondansetron HCl 4 mg 07/16/25 13:28 Ondansetron Hcl Odt 4 Mg Tablet PO Q6H PRN Nausea And Vomiting Potassium Citrate 10 meq 07/16/25 17:00 07/16/25 17:59 Potassium Citrate 5 Meq Tab Cr PO 10 meq BID NEIL Administration Radiology Results: ITS Impressions Chest X-Ray 07/16/25 12:29 IMPRESSION: 1. Interstitial pulmonary edema and/or pneumonitis. 2. Mild bibasilar atelectasis and/or airspace disease, with possible small effusions. 3. Small pericardial effusion not excluded. Labs Labs: Laboratory Results - last 24 hr 07/16/25 07/16/25 07/16/25 11:28 12:14 12:36 WBC 6.4 RBC 3.63 L Hgb 11.8 L Hct 38.0 L MCV 104.7 H MCH 32.5 MCHC 31.1 L RDW 16.0 H Plt Count 141 L MPV 9.7 Immature Gran % (Auto) 0.2 Neut % (Auto) 75.4 H Lymph % (Auto) 10.4 L [place] % (Auto) 13.5 H Eos % (Auto) 0.2 Baso % (Auto) 0.3 Lymph # (Auto) 0.67 L [place] # (Auto) 0.9 H Eos # (Auto) 0.0 Baso # (Auto) 0.0 Abs Immat Gran (auto) 0.01 Absolute Neuts (auto) 4.9 Absolute Nucleated RBC 0.000 Nucleated RBC % 0.0 PT 16.5 H INR 1.3 APTT 29.3 D-Dimer 0.45 Sodium 135 L Potassium 4.3 Chloride 102 Carbon Dioxide 25 Anion Gap 8 BUN 11 D Creatinine 1.06 Estim Creat Clear Calc 55 Estimated GFR > 60 Glucose 103 Calcium 8.9 Total Bilirubin 1.3 AST 23 ALT 17 Alkaline Phosphatase 81 Troponin I < 0.012 NT-Pro-B Natriuret Pep 2270 H Total Protein 8.1 Albumin 3.7 TSH (Reflex) Urine Color Yellow Urine Appearance Clear Urine pH 7.0 Ur Specific [place] 1.012 Urine Protein Trace Urine Glucose (UA) Negative Urine Ketones Trace H Ur Blood (Man) Negative Urine Nitrate Negative Urine Bilirubin Negative Urine Urobilinogen 1.0 Leukocyte Esterase Rfl 2+ H Urine RBC 0-2 Urine WBC 11-20 H Ur Squamous Epith Cells None seen Urine Bacteria None seen Urine Casts 0-2 07/16/25 07/17/25 15:34 04:03 WBC 5.8 RBC 3.20 L Hgb 10.5 L Hct 33.1 L MCV 103.4 H MCH 32.8 MCHC 31.7 L RDW 16.1 H Plt Count 123 L MPV 9.4 Immature Gran % (Auto) 0.3 Neut % (Auto) 69.6 Lymph % (Auto) 13.2 L [place] % (Auto) 16.2 H Eos % (Auto) 0.2 Baso % (Auto) 0.5 Lymph # (Auto) 0.76 L [place] # (Auto) 0.9 H Eos # (Auto) 0.0 Baso # (Auto) 0.0 Abs Immat Gran (auto) 0.02 Absolute Neuts (auto) 4.0 Absolute Nucleated RBC 0.000 Nucleated RBC % 0.0 PT INR APTT D-Dimer Sodium 135 L Potassium 3.7 Chloride 104 Carbon Dioxide 22 Anion Gap 9 BUN 13 Creatinine 1.03 Estim Creat Clear Calc 57 Estimated GFR > 60 Glucose 101 Calcium 8.7 Total Bilirubin 1.9 H AST 18 ALT 14 Alkaline Phosphatase 75 Troponin I < 0.012 NT-Pro-B Natriuret Pep Total Protein 7.6 Albumin 3.5 TSH (Reflex) 2.930 Urine Color Urine Appearance Urine pH Ur Specific [place] Urine Protein Urine Glucose (UA) Urine Ketones Ur Blood (Man) Urine Nitrate Urine Bilirubin Urine Urobilinogen Leukocyte Esterase Rfl Urine RBC Urine WBC Ur Squamous Epith Cells Urine Bacteria Urine Casts
[2025-07-17] MEDS: ASPIRIN 81 MG ENTERIC TABLET PO (08:29)
[2025-07-17] MEDS: CYANOCOBALAMIN 1,000 MCG TABLET 1000 MCG PO (08:29)
[2025-07-17] MEDS: ALPRAZolam (*CRX) 0.5 MG TABLET PO ×2 (08:29→17:05)
[2025-07-17] MEDS: POTASSIUM CITRATE 5 MEQ TAB CR 10 MEQ PO ×2 (08:29→17:05)
[2025-07-17] MEDS: ATORVASTATIN 40 MG TABLET PO (08:29)
[2025-07-17] MEDS: APIXABAN 5 MG TABLET PO ×2 (08:29→20:19)
[2025-07-17] MEDS: FUROSEMIDE INJ 40 MG/4 ML VIAL IV PUSH (08:34)
--- NOTE | 2025-07-17 10:21 | P.PNCA_ITS ---
<Statement entered by Ha Saunders MD - 07/17/25 10:33> ELVI/DCCV to be coordinated today Progress Note: A&P Assessment and Plan (1) Atrial fibrillation with RVR: Code(s): I48.91 - Unspecified atrial fibrillation Status: Acute Assessment and Plan: 74-year-old male presenting with a chief complaint of shortness of breath found to be in atrial fibrillation with rapid ventricular response. This is a new diagnosis. I discussed the diagnosis of atrial fibrillation including pathophysiology, management strategies including rate versus rhythm control, risks/complications. Since this is his 1st known occurrence of atrial fibrillation, preference to make an attempt to restore sinus rhythm. * Remains in AF RVR * Unable to coordinate procedure time with anesthesia and cardiology today. Plan for ELVI/CV tomorrow with anesthesia, Dr. Griggs * In the meantime, continue diltiazem drip for rate control. Continue diltiazem to 15 milligrams/hour * Will give metoprolol tartrate 12.5mg p.o. now and observe HR and BP response * Give digoxin 250mcg IV push now for additional rate control * He has a CHADS2 Vasc score of 3 (age, coronary disease, hypertension) anticoagulation is indicated. Cotninue Eliquis 5 mg b.i.d., 1st dose tonight * Echocardiogram pending * Perhaps some CHF related to tachycardia. Chest x-ray with interstitial edema and possible small pleural effusions. Continue furosemide 40 mg IV daily 1st dose now. * Supplemental oxygen Plan and recommendations discussed with Dr. Saunders (2) Coronary artery disease: Code(s): I25.10 - Atherosclerotic heart disease of [place] coronary artery without angina pectoris Status: Acute Assessment and Plan: Appears to be stable. Continue aspirin, statin. (3) Hypertension: Qualifiers: Hypertension type: primary hypertension Qualified Code(s): I10 - Essential (primary) hypertension Code(s): I10 - Essential (primary) hypertension Status: Chronic Assessment and Plan: Stable, at goal (4) Pure hypercholesterolemia, unspecified: Code(s): E78.00 - Pure hypercholesterolemia, unspecified Status: Acute Assessment and Plan: Continue statin (5) Chest pain: Qualifiers: Chest pain type: unspecified Qualified Code(s): R07.9 - Chest pain, unspecified Code(s): R07.9 - Chest pain, unspecified Status: Acute Assessment and Plan: Probably related to tachycardia. Troponin negative. Subjective Date/time seen: 07/17/25 10:21 Interval history: Cardiology follow up visit Feeling better today. Less short of breath. Denies chest pain. [place] some fluttering in his chest earlier this morning but no palpitations currently. Review of Systems Review of Systems: All systems reviewed & are unremarkable except as noted in HPI and below Exam Const: General: comfortable, no acute distress, alert and awake Orientation/consciousness: patient oriented x3 HENMT: Head: normal to inspection Eyes: General: appearance normal, both eyes and all related structures Pupils: Equal, round and reactive pupils present Neck: Neck: normal visual inspection, supple and no JVD Carotids: normal carotid upstroke Resp: Effort & Inspection: normal respiratory effort Auscultation: no rales, no wheezes and diminished lung sounds Cardio: Rate: tachycardic Rhythm: abnormal rhythm irregularly irregular Heart sounds: S1 normal heart sound present, S2 normal heart sound present and no murmurs GI: Auscultation: normal bowel sounds Skin: General skin exam: normal color Neuro: General: patient oriented x3 Cranial nerves: Yes Equal, round and reactive pupils present Extrem: General: normal to inspection Psych: Appearance: grossly normal Mental Status: mental status grossly normal Objective Data Vital Signs Vital Signs: Vital Signs - 24 hr 07/16/25 11:11 07/16/25 11:22 07/16/25 11:24 Temperature 36.6 C Pulse Rate 162 H 162 H 160 H Respiratory Rate 28 H Blood Pressure 139/97 H Pulse Oximetry 94 Oxygen Delivery Room Air Oxygen Flow Rate 07/16/25 11:24 07/16/25 11:46 07/16/25 12:10 Temperature Pulse Rate 130 H 138 H Respiratory Rate 19 17 Blood Pressure 94/78 L 103/74 Pulse Oximetry 98 100 98 Oxygen Delivery Nasal Cannula Oxygen Flow Rate 2 07/16/25 12:20 07/16/25 12:22 07/16/25 12:46 Temperature Pulse Rate 127 H 130 H 127 H Respiratory Rate 19 20 Blood Pressure 108/67 108/67 106/75 Pulse Oximetry 97 100 Oxygen Delivery Oxygen Flow Rate 07/16/25 12:47 07/16/25 13:13 07/16/25 13:14 Temperature Pulse Rate 142 H 137 H 133 H Respiratory Rate 21 H Blood Pressure 106/75 119/83 119/83 Pulse Oximetry 98 Oxygen Delivery Oxygen Flow Rate 07/16/25 13:24 07/16/25 13:29 07/16/25 13:41 Temperature 36.9 C Pulse Rate 133 H 140 H 131 H Respiratory Rate 20 16 Blood Pressure 115/86 115/86 109/91 H Pulse Oximetry 100 99 Oxygen Delivery Oxygen Flow Rate 07/16/25 14:00 07/16/25 14:59 07/16/25 15:39 Temperature Pulse Rate 150 H 130 H Respiratory Rate Blood Pressure 125/85 Pulse Oximetry Oxygen Delivery Oxygen Flow Rate 07/16/25 15:42 07/16/25 15:43 07/16/25 16:00 Temperature Pulse Rate 150 H 152 H Respiratory Rate Blood Pressure 125/85 Pulse Oximetry 99 Oxygen Delivery Nasal Cannula Oxygen Flow Rate 2 07/16/25 16:00 07/16/25 16:04 07/16/25 17:03 Temperature 37.1 C Pulse Rate 151 H 145 H Respiratory Rate 28 H Blood Pressure 113/81 108/86 Pulse Oximetry 100 Oxygen Delivery Oxygen Flow Rate 07/16/25 17:19 07/16/25 18:00 07/16/25 18:00 Temperature Pulse Rate 120 H 114 H 114 H Respiratory Rate Blood Pressure Pulse Oximetry Oxygen Delivery Oxygen Flow Rate 07/16/25 19:21 07/16/25 19:47 07/16/25 20:00 Temperature 37.2 C Pulse Rate 101 H 115 H 121 H Respiratory Rate 26 H Blood Pressure 107/73 107/73 Pulse Oximetry 97 Oxygen Delivery Oxygen Flow Rate 07/16/25 20:00 07/16/25 20:00 07/16/25 22:00 Temperature Pulse Rate 128 H 102 H Respiratory Rate Blood Pressure 101/66 Pulse Oximetry 97 Oxygen Delivery Nasal Cannula Oxygen Flow Rate 2 07/16/25 22:00 07/16/25 22:00 07/17/25 00:00 Temperature 37.2 C Pulse Rate 102 H 102 H 105 H Respiratory Rate 26 H Blood Pressure 101/66 100/66 Pulse Oximetry 100 96 Oxygen Delivery Oxygen Flow Rate 07/17/25 00:00 07/17/25 00:00 07/17/25 00:00 Temperature Pulse Rate 93 93 Respiratory Rate Blood Pressure 100/66 Pulse Oximetry 100 Oxygen Delivery Nasal Cannula Oxygen Flow Rate 2 07/17/25 01:26 07/17/25 01:26 07/17/25 02:00 Temperature Pulse Rate 99 99 96 Respiratory Rate Blood Pressure 105/76 Pulse Oximetry Oxygen Delivery Oxygen Flow Rate 07/17/25 02:00 07/17/25 02:00 07/17/25 03:49 Temperature 37.1 C Pulse Rate 96 96 116 H Respiratory Rate 26 H Blood Pressure 105/76 113/79 Pulse Oximetry 96 99 Oxygen Delivery Oxygen Flow Rate 07/17/25 04:00 07/17/25 04:00 07/17/25 04:00 Temperature Pulse Rate 109 H 109 H Respiratory Rate Blood Pressure 113/79 Pulse Oximetry 99 Oxygen Delivery Nasal Cannula Oxygen Flow Rate 2 07/17/25 06:00 07/17/25 06:00 07/17/25 06:00 Temperature Pulse Rate 129 H 129 H 129 H Respiratory Rate Blood Pressure 128/83 128/83 Pulse Oximetry 96 Oxygen Delivery Oxygen Flow Rate 07/17/25 07:44 07/17/25 08:06 07/17/25 08:34 Temperature 36.7 C Pulse Rate 146 H 133 H 133 H Respiratory Rate 24 H Blood Pressure 108/84 Pulse Oximetry 97 Oxygen Delivery Oxygen Flow Rate Intake/Output Intake/Output: Intake & Output 07/14/25 07/15/25 07/16/25 07/17/25 23:59 23:59 23:59 23:59 Intake Total 1700.0 151.5 Output Total 1650 475 Balance 50.0 -323.5 Meds/Results Medications: Active Medications Generic Name Dose Route Start Last Admin Trade Name Freq PRN Reason Stop Dose Admin Acetaminophen 650 mg 07/16/25 13:28 Acetaminophen 325 Mg Tablet PO Q4H PRN Mild Pain (1-3) or Fever Albuterol 2 puff 07/16/25 15:57 Albuterol Sulfate (*Sp) Aerosol 1 Puff INHALATION QIDRT PRN Shortness Of Breath Alprazolam 0.5 mg 07/16/25 17:00 07/17/25 08:29 Alprazolam (*Crx) 0.5 Mg Tablet PO 0.5 mg BID NEIL Administration Apixaban 5 mg 07/16/25 21:00 07/17/25 08:29 Apixaban 5 Mg Tablet PO 5 mg Q12HR NEIL Administration Aspirin 81 mg 07/17/25 09:00 07/17/25 08:29 Aspirin 81 Mg Enteric Tablet PO 81 mg DAILY NEIL Administration Atorvastatin Calcium 40 mg 07/17/25 09:00 07/17/25 08:29 Atorvastatin 40 Mg Tablet PO 40 mg DAILY NEIL Administration Bisacodyl 5 mg 07/16/25 13:28 Bisacodyl 5 Mg Tablet Ec PO DAILY PRN Constipation Cyanocobalamin 1,000 mcg 07/17/25 09:00 07/17/25 08:29 Cyanocobalamin 1,000 Mcg Tablet PO 1,000 mcg QAM NEIL Administration Fluticasone Propionate 1 spray 07/17/25 09:00 07/17/25 10:05 Fluticasone Propionate 0.05% Na Spr 16 Gm Btl (*Bkc) NASAL Not Given DAILY NEIL Furosemide 40 mg 07/16/25 14:30 07/17/25 08:34 Furosemide Inj 40 Mg/4 Ml Vial IV PUSH 40 mg DAILY NEIL Administration Diltiazem HCl 100 mg in 100 mls @ 15 mls/hr 07/16/25 19:10 07/17/25 08:34 Cardizem 100 Mg/100 Ml IV CONT 15 mg/hr .Q6H40M NEIL 15 mls/hr 15 MG/HR Administration Nitroglycerin 0.4 mg 07/16/25 15:57 Nitroglycerin Sl 0.4 Mg Tablet SUBLINGUAL Q5MIN PRN Chest Pain Ondansetron HCl 4 mg 07/16/25 13:28 Ondansetron Hcl Odt 4 Mg Tablet PO Q6H PRN Nausea And Vomiting Potassium Citrate 10 meq 07/16/25 17:00 07/17/25 08:29 Potassium Citrate 5 Meq Tab Cr PO 10 meq BID NEIL Administration Radiology Results: ITS Impressions Chest X-Ray 07/16/25 12:29 IMPRESSION: 1. Interstitial pulmonary edema and/or pneumonitis. 2. Mild bibasilar atelectasis and/or airspace disease, with possible small effusions. 3. Small pericardial effusion not excluded. Labs Labs: Laboratory Results - last 24 hr 07/16/25 07/16/25 07/16/25 11:28 12:14 12:36 WBC 6.4 RBC 3.63 L Hgb 11.8 L Hct 38.0 L MCV 104.7 H MCH 32.5 MCHC 31.1 L RDW 16.0 H Plt Count 141 L MPV 9.7 Immature Gran % (Auto) 0.2 Neut % (Auto) 75.4 H Lymph % (Auto) 10.4 L [place] % (Auto) 13.5 H Eos % (Auto) 0.2 Baso % (Auto) 0.3 Lymph # (Auto) 0.67 L [place] # (Auto) 0.9 H Eos # (Auto) 0.0 Baso # (Auto) 0.0 Abs Immat Gran (auto) 0.01 Absolute Neuts (auto) 4.9 Absolute Nucleated RBC 0.000 Nucleated RBC % 0.0 PT 16.5 H INR 1.3 APTT 29.3 D-Dimer 0.45 Sodium 135 L Potassium 4.3 Chloride 102 Carbon Dioxide 25 Anion Gap 8 BUN 11 D Creatinine 1.06 Estim Creat Clear Calc 55 Estimated GFR > 60 Glucose 103 Calcium 8.9 Total Bilirubin 1.3 AST 23 ALT 17 Alkaline Phosphatase 81 Troponin I < 0.012 NT-Pro-B Natriuret Pep 2270 H Total Protein 8.1 Albumin 3.7 TSH (Reflex) Urine Color Yellow Urine Appearance Clear Urine pH 7.0 Ur Specific [place] 1.012 Urine Protein Trace Urine Glucose (UA) Negative Urine Ketones Trace H Ur Blood (Man) Negative Urine Nitrate Negative Urine Bilirubin Negative Urine Urobilinogen 1.0 Leukocyte Esterase Rfl 2+ H Urine RBC 0-2 Urine WBC 11-20 H Ur Squamous Epith Cells None seen Urine Bacteria None seen Urine Casts 0-2 07/16/25 07/17/25 15:34 04:03 WBC 5.8 RBC 3.20 L Hgb 10.5 L Hct 33.1 L MCV 103.4 H MCH 32.8 MCHC 31.7 L RDW 16.1 H Plt Count 123 L MPV 9.4 Immature Gran % (Auto) 0.3 Neut % (Auto) 69.6 Lymph % (Auto) 13.2 L [place] % (Auto) 16.2 H Eos % (Auto) 0.2 Baso % (Auto) 0.5 Lymph # (Auto) 0.76 L [place] # (Auto) 0.9 H Eos # (Auto) 0.0 Baso # (Auto) 0.0 Abs Immat Gran (auto) 0.02 Absolute Neuts (auto) 4.0 Absolute Nucleated RBC 0.000 Nucleated RBC % 0.0 PT INR APTT D-Dimer Sodium 135 L Potassium 3.7 Chloride 104 Carbon Dioxide 22 Anion Gap 9 BUN 13 Creatinine 1.03 Estim Creat Clear Calc 57 Estimated GFR > 60 Glucose 101 Calcium 8.7 Total Bilirubin 1.9 H AST 18 ALT 14 Alkaline Phosphatase 75 Troponin I < 0.012 NT-Pro-B Natriuret Pep Total Protein 7.6 Albumin 3.5 TSH (Reflex) 2.930 Urine Color Urine Appearance Urine pH Ur Specific [place] Urine Protein Urine Glucose (UA) Urine Ketones Ur Blood (Man) Urine Nitrate Urine Bilirubin Urine Urobilinogen Leukocyte Esterase Rfl Urine RBC Urine WBC Ur Squamous Epith Cells Urine Bacteria Urine Casts Quality VTE Prophylaxis VTE prophylaxis: pharmacologic ordered
[2025-07-17] MEDS: METOPROLOL TARTRATE 12.5 MG TABLET PO (10:45)
--- NOTE | 2025-07-17 12:23 | ECG_ITS ---
Test Date: 2025-07-17 15:11:16 Measurements Intervals [place] Rate: 91 P: 0 SD: 0 QRS: 31 QRSD: 93 T: 3 QT: 377 QTc: 465 Interpretive Statements ATRIAL FIBRILLATION WITH ABERRANT CONDUCTION OR VENTRICULAR PREMATURE COMPLEXES ABNORMAL RHYTHM ECG Compared to ECG 07/16/2025 11:17:54 VENTRICULAR RESPONSE TO ATRIAL FIBRILLATION RATE, V RATEIS NOW CONTROLLED Electronically Signed On 07-18-2025 15:53:21 CDT by Ryan Griggs M.D.
--- NOTE | 2025-07-17 12:45 | ECG_ITS ---
Test Date: 2025-07-17 15:31:46 Measurements Intervals [place] Rate: 68 P: 52 TN: 151 QRS: 18 QRSD: 97 T: 8 QT: 423 QTc: 452 Interpretive Statements SINUS RHYTHM WITH OCCASIONAL ATRIAL PREMATURE COMPLEXES ABNORMAL ECG Compared to ECG 07/17/2025 15:11:16 SINUS RHYTHM REPLACES ATRIAL FIBRILLATION Electronically Signed On 07-18-2025 15:55:18 CDT by Ryan Griggs M.D.
--- NOTE | 2025-07-17 13:09 | P.PCNTEECA_ITS ---
ELVI with Cardioversion Date of procedure: 07/17/25 Procedure Type: ELVI guided cardioversion Diagnosis: Paroxysmal atrial fibrillation Indications: Acute decompensated systolic heart failure with symptomatic paroxysmal atrial fibrillation Description of Procedure: Monitored anesthesia care provided by Anesthesia team. Lidocaine spray administer. Transesophageal echocardiogram probe was passed smoothly into the esophagus echo cardiac images were captured. After confirmation of no left atrial thrombus, patient was started on amiodarone 150 mg bolus over 10 minutes IV. 360 joules of synchronized electricity was delivered with adventism of sinus rhythm. Sedation: Provided by anesthesia team. Findings: Severely reduced left ventricular systolic function. Mild mitral regurgitation. Please refer to transesophageal echocardiogram report for full details. Paroxysmal atrial fibrillation with rapid ventricular rates Conclusion: Successful synchronized cardioversion with adventism of sinus rhythm.
--- NOTE | 2025-07-17 22:48 | PC.NURSE ---
Patient requested to be taken to see his on 3MS. This RN called furnace charger Marcello, furnace charger Tatyana, and data warehouse consultant Mir to get permission. Everyone cleared patient to be taken upstairs with this RN present. Patient taken upstairs via wheelchair, telemetry on, and patient returned to room 202.
[2025-07-18] VITALS (20 sets, daily range): BP systolic 98–140; BP diastolic 75–86; PULSE 73–141; RESP 18–24; TEMP 36.5–36.8; O2SAT 95–98
[2025-07-18 04:36] LABS: Hematocrit 32.5 % (42.0-52.0); Hemoglobin 10.0 g/dL (14.0-18.0); Immature Granulocyte Percent A 0.2 % (0-0.5); Lymphocytes Absolute Auto 1.08 K/mm3 (0.9-3.2); Mean Corpuscular HGB Conc 30.8 g/dl (32-36); Mean Corpuscular Hemoglobin 32.6 pg (26-34); Mean Corpuscular Volume 105.9 fl (80-100); Nucleated Red Blood Cells Absolute Auto 0.000 K/mm3 (0.0-0.012); Nucleated Red Blood Cells Perc 0.0 % (0.0-0.2); Platelet Count Result 126 k/mm3 (150-375); Red Blood Count 3.07 M/mm3 (4.6-6.20); White Blood Count 4.8 K/mm3 (4.5-10.0)
[2025-07-18 05:07] LABS: Alanine Aminotransferase 12 U/L (6-50); Albumin Level 3.1 g/dL (3.5-5.1); Alkaline Phosphatase 69 U/L (38-126); Anion Gap 9 mmol/L (4-12); Aspartate Amino Transferase 18 U/L (17-59); Bilirubin,Total 1.2 mg/dL (0.2-1.3); Blood Urea Nitrogen 20 mg/dL (9-20); Calcium 8.4 mg/dL (8.4-10.2); Carbon Dioxide 26 mmol/L (22-30); Chloride 103 mmol/L (98-107); Estimated CRCL calculation 51 ml/min; Estimated Glomerular Filt Rate > 60; Glucose 79 mg/dL (65-110); Magnesium 2.1 mg/dL (1.6-2.3); Potassium 3.9 mmol/L (3.4-5.0); Sodium 138 mmol/L (137-145); Total Protein 7.1 g/dL (6.3-8.2)
--- NOTE | 2025-07-18 06:17 | ECG_ITS ---
Test Date: 2025-07-18 06:24:29 Measurements Intervals [place] Rate: 132 P: 0 MS: 0 QRS: 41 QRSD: 89 T: -32 QT: 303 QTc: 450 Interpretive Statements ATRIAL FIBRILLATION WITH RAPID VENTRICULAR RESPONSE NONSPECIFIC ST & T-WAVE ABNORMALITY Compared to ECG 07/17/2025 15:31:46 ATRIAL FIBRILLATION REPLACES SINUS RHYTHM Electronically Signed On 07-18-2025 16:14:23 CDT by Ryan Griggs M.D.
--- NOTE | 2025-07-18 08:26 | PM.IMPN ---
Progress Note: A&P Assessment and Plan (1) Atrial fibrillation with RVR: Code(s): I48.91 - Unspecified atrial fibrillation Status: Acute (2) Shortness of breath: Code(s): R06.02 - Shortness of breath Status: Acute (3) Chest pain: Qualifiers: Chest pain type: unspecified Qualified Code(s): R07.9 - Chest pain, unspecified Code(s): R07.9 - Chest pain, unspecified Status: Acute (4) Unspecified asthma: Qualifiers: Asthma severity: unspecified severity Asthma persistence: unspecified Asthma complication type: unspecified Qualified Code(s): J45.909 - Unspecified asthma, uncomplicated Code(s): J45.909 - Unspecified asthma, uncomplicated Status: Chronic (5) Hypertension: Qualifiers: Hypertension type: primary hypertension Qualified Code(s): I10 - Essential (primary) hypertension Code(s): I10 - Essential (primary) hypertension Status: Chronic (6) Central sleep apnea: Code(s): G47.31 - Primary central sleep apnea Status: Chronic Plan This is a 73-year-old male who presented to the ED with chest pain and shortness of breath over the past few days. Chest pain started approximately 9:00 a.m. 07/16/2025. He has a history of coronary artery disease status post stent x1 in 2019. Upon arrival to the ED he was noted to be tachycardic in 160s. Blood pressure was adequate. EKG showed AFib with RVR. He received 5 mg of IV low pressure followed by 2 boluses 10 mg IV Cardizem and was started on Cardizem drip. Heart rate improved somewhat to 130s with stable blood pressure. Laboratory workup revealed WBC of 6.4 hemoglobin 11.8 platelet count 141. Chem panel showed sodium of 135 potassium 4.3 chloride 102 bicarbonate 25 BUN 11 creatinine 1 blood glucose of home 103. Troponin was negative less than 0.012 BNP was elevated at 2270. LFTs were normal. Urinalysis showed 11-20 urine WBC with positive leukocyte esterase. Serial troponin remained negative Chest x-ray showed interstitial pulmonary edema and/or pneumonitis mild bibasilar atelectasis and/or airspace disease with possible small effusions small pericardial effusion not excluded. D-dimer was negative. Patient was started on Eliquis for anticoagulation. Cardiology was consulted and is planned for ELVI cardioversion. He underwent ELVI cardioversion on 07/17/2025 with subsequent conversion to sinus rhythm. During hospital stay he Also received a dose of digoxin 250 mcg x1. However he flipped back to AFib rhythm at 6:30 a.m.. Started on amiodarone drip. Await Cardiology recommendations. Also on metoprolol which was added 07/17/2025 New onset congestive heart failure likely secondary to AFib with RVR. Started on IV Lasix. Recent echocardiogram 2021 normal LV size hyperdynamic LV function EF measured at 73% severe enlargement of left atrium trace to mild valvular disease. Repeat echo 07/16/2025 with EF 20-25% severe biatrial enlargement. Large size left pleural effusion. Medications per Cardiology. Mild hypoxic respiratory failure requiring oxygen supplementation via nasal cannula continue with IV Lasix History of asthma with no signs of exacerbation continue home medication Hypertension home medication Lumbar stenosis with neurogenic claudication, history of lumbar fusion 01/2025 History of kidney stones Coronary artery disease status post stent 2019 proximal LAD Sleep apnea on CPAP DVT prophylaxis on Eliquis Code status full code Subjective Date/time seen: 07/18/25 08:26 Interval history: Patient frustrated this a.m.. Earlier at 6:30 a.m. fluid back to AFib with RVR with heart rate in 140s. Was started on amiodarone drip. Denies any shortness of breath. He states his is admitted currently and is worried. Review of Systems Review of Systems: All systems reviewed & are unremarkable except as noted in HPI and below Exam Narrative: APPEARANCE: Alert and oriented x3, no acute distress HEAD: normocephalic, atraumatic. EYES: PERRLA/EOMI, conjunctivae clear. NECK: Supple. No adenopathy, no masses. RESPIRATORY: Airway patent, respirations nonlabored. Clear to auscultation bilaterally, no rales, rhonchi, wheezing. CARDIOVASCULAR: AFib with RVR on telemetry, ABDOMINAL: Soft, nontender, nondistended, normal bowel sounds MUSCULOSKELETAL: Moves all extremities. Strength/ROM intact, No edema, No calf tenderness. NEURO: Alert. Cranial nerves II through XII intact. Good gait. Good coordination SKIN: Warm, dry. Normal Color Objective Data Vital Signs Vital Signs: Vital Signs - 24 hr 07/17/25 08:34 07/17/25 10:00 07/17/25 10:00 Temperature 98.2 F Pulse Rate 133 H 137 H 130 H Respiratory Rate 16 Blood Pressure 131/81 Pulse Oximetry 98 Oxygen Delivery Oxygen Flow Rate 07/17/25 10:00 07/17/25 10:45 07/17/25 12:00 Temperature 98.1 F Pulse Rate 137 H 126 H 96 Respiratory Rate 24 H Blood Pressure 131/81 101/69 Pulse Oximetry 98 Oxygen Delivery Oxygen Flow Rate 07/17/25 12:00 07/17/25 13:14 07/17/25 13:15 Temperature Pulse Rate 90 91 62 Respiratory Rate 16 Blood Pressure 100/72 94/73 L Pulse Oximetry 97 Oxygen Delivery Nasal Cannula Oxygen Flow Rate 3 07/17/25 13:30 07/17/25 14:00 07/17/25 14:00 Temperature Pulse Rate 61 68 Respiratory Rate 14 Blood Pressure 92/68 L Pulse Oximetry 97 93 Oxygen Delivery Room Air Room Air Oxygen Flow Rate 07/17/25 15:54 07/17/25 16:00 07/17/25 18:00 Temperature 98.0 F Pulse Rate 84 81 75 Respiratory Rate 24 H Blood Pressure 117/80 Pulse Oximetry 100 Oxygen Delivery Oxygen Flow Rate 07/17/25 19:21 07/17/25 20:00 07/17/25 20:00 Temperature 98 F Pulse Rate 74 79 Respiratory Rate Blood Pressure 116/77 Pulse Oximetry 97 Oxygen Delivery Room Air Oxygen Flow Rate 07/17/25 20:00 07/17/25 22:00 07/18/25 00:00 Temperature 97.8 F Pulse Rate 78 79 76 Respiratory Rate 24 H Blood Pressure 116/75 Pulse Oximetry 95 Oxygen Delivery Oxygen Flow Rate 07/18/25 00:00 07/18/25 00:00 07/18/25 02:00 Temperature Pulse Rate 74 73 Respiratory Rate Blood Pressure Pulse Oximetry Oxygen Delivery Room Air Oxygen Flow Rate 07/18/25 04:00 07/18/25 04:00 07/18/25 04:00 Temperature 97.8 F Pulse Rate 79 81 Respiratory Rate 24 H Blood Pressure 117/86 Pulse Oximetry 97 Oxygen Delivery Room Air Oxygen Flow Rate 07/18/25 06:00 07/18/25 06:46 07/18/25 06:47 Temperature Pulse Rate 83 141 H 141 H Respiratory Rate Blood Pressure 140/79 140/79 Pulse Oximetry Oxygen Delivery Oxygen Flow Rate 07/18/25 07:38 Temperature 97.8 F Pulse Rate 110 H Respiratory Rate 18 Blood Pressure 136/81 Pulse Oximetry 96 Oxygen Delivery Oxygen Flow Rate Intake/Output Intake/Output: Intake & Output 07/15/25 07/16/25 07/17/25 07/18/25 23:59 23:59 23:59 23:59 Intake Total 1700.0 713.0 300 Output Total 1650 875 250 Balance 50.0 -162.0 50 Meds/Results Medications: Active Medications Generic Name Dose Route Start Last Admin Trade Name Freq PRN Reason Stop Dose Admin Acetaminophen 650 mg 07/16/25 13:28 Acetaminophen 325 Mg Tablet PO Q4H PRN Mild Pain (1-3) or Fever Albuterol 2 puff 07/16/25 15:57 Albuterol Sulfate (*Sp) Aerosol 1 Puff INHALATION QIDRT PRN Shortness Of Breath Alprazolam 0.5 mg 07/16/25 17:00 07/17/25 17:05 Alprazolam (*Crx) 0.5 Mg Tablet PO 0.5 mg BID NEIL Administration Apixaban 5 mg 07/16/25 21:00 07/17/25 20:19 Apixaban 5 Mg Tablet PO 5 mg Q12HR NEIL Administration Aspirin 81 mg 07/17/25 09:00 07/17/25 08:29 Aspirin 81 Mg Enteric Tablet PO 81 mg DAILY NEIL Administration Atorvastatin Calcium 40 mg 07/17/25 09:00 07/17/25 08:29 Atorvastatin 40 Mg Tablet PO 40 mg DAILY NEIL Administration Bisacodyl 5 mg 07/16/25 13:28 Bisacodyl 5 Mg Tablet Ec PO DAILY PRN Constipation Cyanocobalamin 1,000 mcg 07/17/25 09:00 07/17/25 08:29 Cyanocobalamin 1,000 Mcg Tablet PO 1,000 mcg QAM NEIL Administration Fluticasone Propionate 1 spray 07/17/25 09:00 07/17/25 10:05 Fluticasone Propionate 0.05% Na Spr 16 Gm Btl (*Bkc) NASAL Not Given DAILY NEIL Furosemide 40 mg 07/16/25 14:30 07/17/25 08:34 Furosemide Inj 40 Mg/4 Ml Vial IV PUSH 40 mg DAILY NEIL Administration Amiodarone HCl/Dextrose 360 mg in 200 mls @ 33.333 mls/hr 07/18/25 06:30 07/18/25 06:47 Nexterone 360 Mg/D5w 200 Ml IV CONT 07/18/25 12:29 1 mg/min .Q6H ONE 33.33 mls/hr 1 MG/MIN Administration Amiodarone HCl/Dextrose 360 mg in 200 mls @ 16.667 mls/hr 07/18/25 12:30 Nexterone 360 Mg/D5w 200 Ml IV CONT .Q12H NEIL 0.5 MG/MIN Nitroglycerin 0.4 mg 07/16/25 15:57 Nitroglycerin Sl 0.4 Mg Tablet SUBLINGUAL Q5MIN PRN Chest Pain Ondansetron HCl 4 mg 07/16/25 13:28 Ondansetron Hcl Odt 4 Mg Tablet PO Q6H PRN Nausea And Vomiting Potassium Citrate 10 meq 07/16/25 17:00 07/17/25 17:05 Potassium Citrate 5 Meq Tab Cr PO 10 meq BID NEIL Administration Radiology Results: ITS Impressions Chest X-Ray 07/16/25 12:29 IMPRESSION: 1. Interstitial pulmonary edema and/or pneumonitis. 2. Mild bibasilar atelectasis and/or airspace disease, with possible small effusions. 3. Small pericardial effusion not excluded. Labs Labs: Laboratory Results - last 24 hr 07/18/25 03:45 WBC 4.8 RBC 3.07 L Hgb 10.0 L Hct 32.5 L MCV 105.9 H MCH 32.6 MCHC 30.8 L RDW 16.3 H Plt Count 126 L MPV 9.4 Immature Gran % (Auto) 0.2 Neut % (Auto) 59.8 Lymph % (Auto) 22.3 [place] % (Auto) 16.3 H Eos % (Auto) 1.0 Baso % (Auto) 0.4 Lymph # (Auto) 1.08 [place] # (Auto) 0.8 H Eos # (Auto) 0.1 Baso # (Auto) 0.0 Abs Immat Gran (auto) 0.01 Absolute Neuts (auto) 2.9 Absolute Nucleated RBC 0.000 Nucleated RBC % 0.0 Sodium 138 Potassium 3.9 Chloride 103 Carbon Dioxide 26 Anion Gap 9 BUN 20 Creatinine 1.14 Estim Creat Clear Calc 51 Estimated GFR > 60 Glucose 79 Calcium 8.4 Magnesium 2.1 Total Bilirubin 1.2 AST 18 ALT 12 Alkaline Phosphatase 69 Total Protein 7.1 Albumin 3.1 L
[2025-07-18] MEDS: ALPRAZolam (*CRX) 0.5 MG TABLET PO ×2 (08:48→17:10)
[2025-07-18] MEDS: APIXABAN 5 MG TABLET PO ×2 (08:48→20:36)
[2025-07-18] MEDS: ASPIRIN 81 MG ENTERIC TABLET PO (08:48)
[2025-07-18] MEDS: POTASSIUM CITRATE 5 MEQ TAB CR 10 MEQ PO ×2 (08:48→17:10)
[2025-07-18] MEDS: ATORVASTATIN 40 MG TABLET PO (08:48)
[2025-07-18] MEDS: CYANOCOBALAMIN 1,000 MCG TABLET 1000 MCG PO (08:48)
[2025-07-18] MEDS: FUROSEMIDE INJ 40 MG/4 ML VIAL IV PUSH (08:51)
--- NOTE | 2025-07-18 08:58 | P.PNCA_ITS ---
Progress Note: A&P Assessment and Plan (1) Atrial fibrillation with RVR: Code(s): I48.91 - Unspecified atrial fibrillation Status: Acute Assessment and Plan: 74-year-old male presenting with a chief complaint of shortness of breath found to be in atrial fibrillation with rapid ventricular response. This is a new diagnosis. I discussed the diagnosis of atrial fibrillation including pathophysiology, management strategies including rate versus rhythm control, risks/complications. Since this is his 1st known occurrence of atrial fibrillation, preference to make an attempt to restore sinus rhythm. He did undergo ELVI cardioversion yesterday and converted to sinus rhythm but has since reverted to atrial fibrillation with RVR. * Reverted to atrial fibrillation he with rapid ventricular response early this morning and is now on an amiodarone drip. * Continue amiodarone drip for now, add Toprol XL 25 mg daily * He has a CHADS2 Vasc score of 3 (age, coronary disease, hypertension) anticoagulation is indicated. Continue Eliquis 5 mg b.i.d., 1st dose tonight * Echocardiogram showed severe LV dysfunction with EF 20-25% (2) Cardiomyopathy: Code(s): I42.9 - Cardiomyopathy, unspecified Status: Acute Assessment and Plan: Severe LV dysfunction with EF 20-25%. This is a new diagnosis. Perhaps a tachycardia induced cardiomyopathy. * Start Entresto 24-26 mg b.i.d. * Toprol XL 25 mg daily * Will discuss LifeVest with him * Continue Lasix 40 mg IV daily * Add spironolactone, Jardiance if blood pressure and kidney function remains stable with above changes (3) Coronary artery disease: Code(s): I25.10 - Atherosclerotic heart disease of [place] coronary artery without angina pectoris Status: Acute Assessment and Plan: Appears to be stable. Continue aspirin, statin. (4) Hypertension: Qualifiers: Hypertension type: primary hypertension Qualified Code(s): I10 - Essential (primary) hypertension Code(s): I10 - Essential (primary) hypertension Status: Chronic Assessment and Plan: Stable, at goal (5) Pure hypercholesterolemia, unspecified: Code(s): E78.00 - Pure hypercholesterolemia, unspecified Status: Acute Assessment and Plan: Continue statin (6) Chest pain: Qualifiers: Chest pain type: unspecified Qualified Code(s): R07.9 - Chest pain, unspecified Code(s): R07.9 - Chest pain, unspecified Status: Acute Assessment and Plan: Probably related to tachycardia. Troponin negative. Subjective Date/time seen: 07/18/25 08:58 Interval history: Cardiology follow up visit Feeling better today. Less short of breath. Denies chest pain. [place] some fluttering in his chest earlier this morning but no palpitations currently. Date of service 07/18/2025: He went back in atrial fibrillation with rapid ventricular response early this morning. He was placed on amiodarone drip and remains in atrial fibrillation heart rates are better controlled. Denies chest pain, shortness of breath, palpitations. Review of Systems Review of Systems: All systems reviewed & are unremarkable except as noted in HPI and below Exam Const: General: comfortable, no acute distress, alert and awake Orientation/consciousness: patient oriented x3 HENMT: Head: normal to inspection Eyes: General: appearance normal, both eyes and all related structures Pupils: Equal, round and reactive pupils present Neck: Neck: normal visual inspection, supple and no JVD Carotids: normal carotid upstroke Resp: Effort & Inspection: normal respiratory effort Auscultation: no rales, no wheezes and diminished lung sounds Cardio: Rate: tachycardic Rhythm: abnormal rhythm irregularly irregular Heart sounds: S1 normal heart sound present, S2 normal heart sound present and no murmurs GI: Auscultation: normal bowel sounds Skin: General skin exam: normal color Neuro: General: patient oriented x3 Cranial nerves: Yes Equal, round and reactive pupils present Extrem: General: normal to inspection Psych: Appearance: grossly normal Mental Status: mental status grossly normal Objective Data Vital Signs Vital Signs: Vital Signs - 24 hr 07/17/25 10:00 07/17/25 10:00 07/17/25 10:00 Temperature 36.8 C Pulse Rate 137 H 130 H 137 H Respiratory Rate 16 Blood Pressure 131/81 131/81 Pulse Oximetry 98 Oxygen Delivery Oxygen Flow Rate 07/17/25 10:45 07/17/25 12:00 07/17/25 12:00 Temperature 36.7 C Pulse Rate 126 H 96 90 Respiratory Rate 24 H Blood Pressure 101/69 Pulse Oximetry 98 Oxygen Delivery Oxygen Flow Rate 07/17/25 13:14 07/17/25 13:15 07/17/25 13:30 Temperature Pulse Rate 91 62 61 Respiratory Rate 16 14 Blood Pressure 100/72 94/73 L 92/68 L Pulse Oximetry 97 97 Oxygen Delivery Nasal Cannula Room Air Oxygen Flow Rate 3 07/17/25 14:00 07/17/25 14:00 07/17/25 15:54 Temperature 36.7 C Pulse Rate 68 84 Respiratory Rate 24 H Blood Pressure 117/80 Pulse Oximetry 93 100 Oxygen Delivery Room Air Oxygen Flow Rate 07/17/25 16:00 07/17/25 18:00 07/17/25 19:21 Temperature Pulse Rate 81 75 74 Respiratory Rate Blood Pressure Pulse Oximetry Oxygen Delivery Oxygen Flow Rate 07/17/25 20:00 07/17/25 20:00 07/17/25 20:00 Temperature 36.6 C Pulse Rate 79 78 Respiratory Rate Blood Pressure 116/77 Pulse Oximetry 97 Oxygen Delivery Room Air Oxygen Flow Rate 07/17/25 22:00 07/18/25 00:00 07/18/25 00:00 Temperature 36.6 C Pulse Rate 79 76 Respiratory Rate 24 H Blood Pressure 116/75 Pulse Oximetry 95 Oxygen Delivery Room Air Oxygen Flow Rate 07/18/25 00:00 07/18/25 02:00 07/18/25 04:00 Temperature Pulse Rate 74 73 Respiratory Rate Blood Pressure Pulse Oximetry Oxygen Delivery Room Air Oxygen Flow Rate 07/18/25 04:00 07/18/25 04:00 07/18/25 06:00 Temperature 36.6 C Pulse Rate 79 81 83 Respiratory Rate 24 H Blood Pressure 117/86 Pulse Oximetry 97 Oxygen Delivery Oxygen Flow Rate 07/18/25 06:46 07/18/25 06:47 07/18/25 07:38 Temperature 36.6 C Pulse Rate 141 H 141 H 110 H Respiratory Rate 18 Blood Pressure 140/79 140/79 136/81 Pulse Oximetry 96 Oxygen Delivery Oxygen Flow Rate Intake/Output Intake/Output: Intake & Output 07/15/25 07/16/25 07/17/25 07/18/25 23:59 23:59 23:59 23:59 Intake Total 1700.0 713.0 300 Output Total 1650 875 250 Balance 50.0 -162.0 50 Meds/Results Medications: Active Medications Generic Name Dose Route Start Last Admin Trade Name Freq PRN Reason Stop Dose Admin Acetaminophen 650 mg 07/16/25 13:28 Acetaminophen 325 Mg Tablet PO Q4H PRN Mild Pain (1-3) or Fever Albuterol 2 puff 07/16/25 15:57 Albuterol Sulfate (*Sp) Aerosol 1 Puff INHALATION QIDRT PRN Shortness Of Breath Alprazolam 0.5 mg 07/16/25 17:00 07/18/25 08:48 Alprazolam (*Crx) 0.5 Mg Tablet PO 0.5 mg BID NEIL Administration Apixaban 5 mg 07/16/25 21:00 07/18/25 08:48 Apixaban 5 Mg Tablet PO 5 mg Q12HR NEIL Administration Aspirin 81 mg 07/17/25 09:00 07/18/25 08:48 Aspirin 81 Mg Enteric Tablet PO 81 mg DAILY NEIL Administration Atorvastatin Calcium 40 mg 07/17/25 09:00 07/18/25 08:48 Atorvastatin 40 Mg Tablet PO 40 mg DAILY NEIL Administration Bisacodyl 5 mg 07/16/25 13:28 Bisacodyl 5 Mg Tablet Ec PO DAILY PRN Constipation Cyanocobalamin 1,000 mcg 07/17/25 09:00 07/18/25 08:48 Cyanocobalamin 1,000 Mcg Tablet PO 1,000 mcg QAM NEIL Administration Fluticasone Propionate 1 spray 07/17/25 09:00 07/18/25 08:54 Fluticasone Propionate 0.05% Na Spr 16 Gm Btl (*Bkc) NASAL Not Given DAILY NEIL Furosemide 40 mg 07/16/25 14:30 07/18/25 08:51 Furosemide Inj 40 Mg/4 Ml Vial IV PUSH 40 mg DAILY NEIL Administration Amiodarone HCl/Dextrose 360 mg in 200 mls @ 33.333 mls/hr 07/18/25 06:30 07/18/25 06:47 Nexterone 360 Mg/D5w 200 Ml IV CONT 07/18/25 12:29 1 mg/min .Q6H ONE 33.33 mls/hr 1 MG/MIN Administration Amiodarone HCl/Dextrose 360 mg in 200 mls @ 16.667 mls/hr 07/18/25 12:30 Nexterone 360 Mg/D5w 200 Ml IV CONT .Q12H NEIL 0.5 MG/MIN Metoprolol Succinate 25 mg 07/18/25 09:00 Metoprolol Succinate Ext Rel 25 Mg Tabcr PO QAM NEIL Nitroglycerin 0.4 mg 07/16/25 15:57 Nitroglycerin Sl 0.4 Mg Tablet SUBLINGUAL Q5MIN PRN Chest Pain Ondansetron HCl 4 mg 07/16/25 13:28 Ondansetron Hcl Odt 4 Mg Tablet PO Q6H PRN Nausea And Vomiting Potassium Citrate 10 meq 07/16/25 17:00 07/18/25 08:48 Potassium Citrate 5 Meq Tab Cr PO 10 meq BID [facility] Administration Sacubitril/Valsartan 1 tab 07/18/25 09:00 Sacubitril/Valsartan 24-26 Mg Tablet PO Q12HR [facility] Radiology Results: ITS Impressions Chest X-Ray 07/16/25 12:29 IMPRESSION: 1. Interstitial pulmonary edema and/or pneumonitis. 2. Mild bibasilar atelectasis and/or airspace disease, with possible small effusions. 3. Small pericardial effusion not excluded. Labs Labs: Laboratory Results - last 24 hr 07/18/25 03:45 WBC 4.8 RBC 3.07 L Hgb 10.0 L Hct 32.5 L MCV 105.9 H MCH 32.6 MCHC 30.8 L RDW 16.3 H Plt Count 126 L MPV 9.4 Immature Gran % (Auto) 0.2 Neut % (Auto) 59.8 Lymph % (Auto) 22.3 [place] % (Auto) 16.3 H Eos % (Auto) 1.0 Baso % (Auto) 0.4 Lymph # (Auto) 1.08 [place] # (Auto) 0.8 H Eos # (Auto) 0.1 Baso # (Auto) 0.0 Abs Immat Gran (auto) 0.01 Absolute Neuts (auto) 2.9 Absolute Nucleated RBC 0.000 Nucleated RBC % 0.0 Sodium 138 Potassium 3.9 Chloride 103 Carbon Dioxide 26 Anion Gap 9 BUN 20 Creatinine 1.14 Estim Creat Clear Calc 51 Estimated GFR > 60 Glucose 79 Calcium 8.4 Magnesium 2.1 Total Bilirubin 1.2 AST 18 ALT 12 Alkaline Phosphatase 69 Total Protein 7.1 Albumin 3.1 L Quality VTE Prophylaxis VTE prophylaxis: pharmacologic ordered
[2025-07-18] MEDS: SACUBITRIL/VALSARTAN 24-26 MG TABLET 1 TAB PO ×2 (09:35→20:36)
[2025-07-18] MEDS: METOPROLOL SUCCINATE EXT REL 25 MG TABCR PO (09:35)
[2025-07-19] VITALS (22 sets, daily range): BP systolic 92–119; BP diastolic 63–77; PULSE 86–141; RESP 17–20; TEMP 36.3–36.9; O2SAT 95–99
[2025-07-19 04:05] LABS: Hematocrit 37.1 % (42.0-52.0); Hemoglobin 11.7 g/dL (14.0-18.0); Immature Granulocyte Percent A 0.2 % (0-0.5); Lymphocytes Absolute Auto 1.08 K/mm3 (0.9-3.2); Mean Corpuscular HGB Conc 31.5 g/dl (32-36); Mean Corpuscular Hemoglobin 32.5 pg (26-34); Mean Corpuscular Volume 103.1 fl (80-100); Nucleated Red Blood Cells Absolute Auto 0.000 K/mm3 (0.0-0.012); Nucleated Red Blood Cells Perc 0.0 % (0.0-0.2); Platelet Count Result 141 k/mm3 (150-375); Red Blood Count 3.60 M/mm3 (4.6-6.20); White Blood Count 4.1 K/mm3 (4.5-10.0)
[2025-07-19 04:19] LABS: Alanine Aminotransferase 15 U/L (6-50); Albumin Level 3.2 g/dL (3.5-5.1); Alkaline Phosphatase 80 U/L (38-126); Anion Gap 8 mmol/L (4-12); Aspartate Amino Transferase 25 U/L (17-59); Bilirubin,Total 0.9 mg/dL (0.2-1.3); Blood Urea Nitrogen 18 mg/dL (9-20); Calcium 8.0 mg/dL (8.4-10.2); Carbon Dioxide 24 mmol/L (22-30); Chloride 104 mmol/L (98-107); Estimated CRCL calculation 61 ml/min; Estimated Glomerular Filt Rate > 60; Glucose 83 mg/dL (65-110); Magnesium 2.1 mg/dL (1.6-2.3); Potassium 3.4 mmol/L (3.4-5.0); Sodium 136 mmol/L (137-145); Total Protein 7.3 g/dL (6.3-8.2)
--- NOTE | 2025-07-19 08:18 | PM.IMPN ---
Progress Note: A&P Assessment and Plan (1) Atrial fibrillation with RVR: Code(s): I48.91 - Unspecified atrial fibrillation Status: Acute (2) Shortness of breath: Code(s): R06.02 - Shortness of breath Status: Acute (3) Chest pain: Qualifiers: Chest pain type: unspecified Qualified Code(s): R07.9 - Chest pain, unspecified Code(s): R07.9 - Chest pain, unspecified Status: Acute (4) Unspecified asthma: Qualifiers: Asthma severity: unspecified severity Asthma persistence: unspecified Asthma complication type: unspecified Qualified Code(s): J45.909 - Unspecified asthma, uncomplicated Code(s): J45.909 - Unspecified asthma, uncomplicated Status: Chronic (5) Hypertension: Qualifiers: Hypertension type: primary hypertension Qualified Code(s): I10 - Essential (primary) hypertension Code(s): I10 - Essential (primary) hypertension Status: Chronic (6) Central sleep apnea: Code(s): G47.31 - Primary central sleep apnea Status: Chronic Plan This is a 73-year-old male who presented to the ED with chest pain and shortness of breath over the past few days. Chest pain started approximately 9:00 a.m. 07/16/2025. He has a history of coronary artery disease status post stent x1 in 2019. Upon arrival to the ED he was noted to be tachycardic in 160s. Blood pressure was adequate. EKG showed AFib with RVR. He received 5 mg of IV low pressure followed by 2 boluses 10 mg IV Cardizem and was started on Cardizem drip. Heart rate improved somewhat to 130s with stable blood pressure. Laboratory workup revealed WBC of 6.4 hemoglobin 11.8 platelet count 141. Chem panel showed sodium of 135 potassium 4.3 chloride 102 bicarbonate 25 BUN 11 creatinine 1 blood glucose of home 103. Troponin was negative less than 0.012 BNP was elevated at 2270. LFTs were normal. Urinalysis showed 11-20 urine WBC with positive leukocyte esterase. Serial troponin remained negative Chest x-ray showed interstitial pulmonary edema and/or pneumonitis mild bibasilar atelectasis and/or airspace disease with possible small effusions small pericardial effusion not excluded. D-dimer was negative. Patient was started on Eliquis for anticoagulation. Cardiology was consulted and is planned for ELVI cardioversion. He underwent ELVI cardioversion on 07/17/2025 with subsequent conversion to sinus rhythm. During hospital stay he Also received a dose of digoxin 250 mcg x1. However he flipped back to AFib rhythm at 6:30 a.m.. Started on amiodarone drip. Await Cardiology recommendations. Also on metoprolol which was added 07/17/2025 New onset congestive heart failure likely secondary to AFib with RVR. Started on IV Lasix. Recent echocardiogram 2021 normal LV size hyperdynamic LV function EF measured at 73% severe enlargement of left atrium trace to mild valvular disease. Repeat echo 07/16/2025 with EF 20-25% severe biatrial enlargement. Large size left pleural effusion. Medications per Cardiology. He has been started on Entresto and Toprol. LifeVest has been discussed with the patient. And spironolactone and Jardiance down the line Mild hypoxic respiratory failure requiring oxygen supplementation via nasal cannula continue with IV Lasix. Now off oxygen. History of asthma with no signs of exacerbation continue home medication Hypertension home medication Lumbar stenosis with neurogenic claudication, history of lumbar fusion 01/2025 History of kidney stones Coronary artery disease status post stent 2019 proximal LAD Sleep apnea on CPAP DVT prophylaxis on Eliquis Code status full code Subjective Date/time seen: 07/19/25 08:18 Interval history: No overnight events. Patient remains in AFib with RVR. Remains on amiodarone drip. Denies any chest pain or shortness of breath. He states he used to be on beta-cahva in the past which was stopped. Review of Systems Review of Systems: All systems reviewed & are unremarkable except as noted in HPI and below Exam Narrative: APPEARANCE: Alert and oriented x3, no acute distress HEAD: normocephalic, atraumatic. EYES: PERRLA/EOMI, conjunctivae clear. NECK: Supple. No adenopathy, no masses. RESPIRATORY: Airway patent, respirations nonlabored. Clear to auscultation bilaterally, no rales, rhonchi, wheezing. CARDIOVASCULAR: AFib with RVR on telemetry, ABDOMINAL: Soft, nontender, nondistended, normal bowel sounds MUSCULOSKELETAL: Moves all extremities. Strength/ROM intact, No edema, No calf tenderness. NEURO: Alert. Cranial nerves II through XII intact. Good gait. Good coordination SKIN: Warm, dry. Normal Color Objective Data Vital Signs Vital Signs: Vital Signs - 24 hr 07/18/25 09:35 07/18/25 10:00 07/18/25 10:00 Temperature 98 F Pulse Rate 122 H 125 H 120 H Respiratory Rate 18 Blood Pressure 120/86 Pulse Oximetry 98 Oxygen Delivery 07/18/25 12:00 07/18/25 12:00 07/18/25 12:00 Temperature 97.9 F Pulse Rate 116 H 122 H Respiratory Rate 20 Blood Pressure 124/86 Pulse Oximetry 98 Oxygen Delivery Room Air 07/18/25 12:36 07/18/25 14:00 07/18/25 14:00 Temperature 98.2 F Pulse Rate 116 H 114 H 103 H Respiratory Rate 18 Blood Pressure 117/82 Pulse Oximetry 96 Oxygen Delivery 07/18/25 14:00 07/18/25 16:00 07/18/25 16:00 Temperature 98.3 F Pulse Rate 103 H 110 H Respiratory Rate 20 Blood Pressure 117/82 123/78 Pulse Oximetry 97 Oxygen Delivery Room Air 07/18/25 16:00 07/18/25 16:00 07/18/25 18:00 Temperature Pulse Rate 116 H 116 H 100 Respiratory Rate Blood Pressure 123/78 Pulse Oximetry Oxygen Delivery 07/18/25 18:00 07/18/25 20:00 07/18/25 20:00 Temperature 97.7 F Pulse Rate 100 102 H Respiratory Rate 20 Blood Pressure 105/77 Pulse Oximetry 97 Oxygen Delivery Room Air 07/18/25 20:00 07/18/25 20:00 07/18/25 22:00 Temperature Pulse Rate 102 H 112 H 103 H Respiratory Rate Blood Pressure 105/77 Pulse Oximetry Oxygen Delivery 07/18/25 22:30 07/18/25 23:50 07/18/25 23:56 Temperature 97.8 F Pulse Rate 113 H 108 H 91 Respiratory Rate 20 Blood Pressure 104/76 98/75 L 98/75 L Pulse Oximetry 96 Oxygen Delivery 07/18/25 23:56 07/19/25 00:00 07/19/25 00:00 Temperature Pulse Rate 91 86 Respiratory Rate Blood Pressure 98/75 L Pulse Oximetry Oxygen Delivery Room Air 07/19/25 02:31 07/19/25 02:40 07/19/25 04:00 Temperature Pulse Rate 97 98 Respiratory Rate Blood Pressure 92/68 L Pulse Oximetry Oxygen Delivery Room Air 07/19/25 04:00 07/19/25 04:00 07/19/25 06:00 Temperature 98.0 F Pulse Rate 111 H 120 H 93 Respiratory Rate 20 Blood Pressure 104/69 Pulse Oximetry 95 Oxygen Delivery 07/19/25 06:00 07/19/25 07:58 Temperature 98.5 F Pulse Rate 117 H 129 H Respiratory Rate 20 18 Blood Pressure 107/64 102/75 Pulse Oximetry 96 97 Oxygen Delivery Intake/Output Intake/Output: Intake & Output 07/16/25 07/17/25 07/18/25 07/19/25 23:59 23:59 23:59 23:59 Intake Total 1700.0 713.0 968.8 835.6 Output Total 6449 710 5569 200 Balance 50.0 -162.0 -481.2 635.6 Meds/Results Medications: Active Medications Generic Name Dose Route Start Last Admin Trade Name Freq PRN Reason Stop Dose Admin Acetaminophen 650 mg 07/16/25 13:28 Acetaminophen 325 Mg Tablet PO Q4H PRN Mild Pain (1-3) or Fever Albuterol 2 puff 07/16/25 15:57 Albuterol Sulfate (*Sp) Aerosol 1 Puff INHALATION QIDRT PRN Shortness Of Breath Alprazolam 0.5 mg 07/16/25 17:00 07/18/25 17:10 Alprazolam (*Crx) 0.5 Mg Tablet PO 0.5 mg BID NEIL Administration Apixaban 5 mg 07/16/25 21:00 07/18/25 20:36 Apixaban 5 Mg Tablet PO 5 mg Q12HR NEIL Administration Aspirin 81 mg 07/17/25 09:00 07/18/25 08:48 Aspirin 81 Mg Enteric Tablet PO 81 mg DAILY NEIL Administration Atorvastatin Calcium 40 mg 07/17/25 09:00 07/18/25 08:48 Atorvastatin 40 Mg Tablet PO 40 mg DAILY NEIL Administration Bisacodyl 5 mg 07/16/25 13:28 Bisacodyl 5 Mg Tablet Ec PO DAILY PRN Constipation Cyanocobalamin 1,000 mcg 07/17/25 09:00 07/18/25 08:48 Cyanocobalamin 1,000 Mcg Tablet PO 1,000 mcg QAM NEIL Administration Fluticasone Propionate 1 spray 07/17/25 09:00 07/18/25 08:54 Fluticasone Propionate 0.05% Na Spr 16 Gm Btl (*Bkc) NASAL Not Given DAILY [facility] Furosemide 40 mg 07/16/25 14:30 07/18/25 08:51 Furosemide Inj 40 Mg/4 Ml Vial IV PUSH 40 mg DAILY NEIL Administration Amiodarone HCl/Dextrose 360 mg in 200 mls @ 16.667 mls/hr 07/18/25 12:30 07/19/25 02:40 Nexterone 360 Mg/D5w 200 Ml IV CONT 0.5 mg/min .Q12H NEIL 16.67 mls/hr 0.5 MG/MIN Infusion Metoprolol Succinate 25 mg 07/18/25 09:00 07/18/25 09:35 Metoprolol Succinate Ext Rel 25 Mg Tabcr PO 25 mg QAM NEIL Administration Nitroglycerin 0.4 mg 07/16/25 15:57 Nitroglycerin Sl 0.4 Mg Tablet SUBLINGUAL Q5MIN PRN Chest Pain Ondansetron HCl 4 mg 07/16/25 13:28 Ondansetron Hcl Odt 4 Mg Tablet PO Q6H PRN Nausea And Vomiting Potassium Citrate 10 meq 07/16/25 17:00 07/18/25 17:10 Potassium Citrate 5 Meq Tab Cr PO 10 meq BID NEIL Administration Sacubitril/Valsartan 1 tab 07/18/25 09:00 07/18/25 20:36 Sacubitril/Valsartan 24-26 Mg Tablet PO 1 tab Q12HR NEIL Administration Radiology Results: ITS Impressions Chest X-Ray 07/16/25 12:29 IMPRESSION: 1. Interstitial pulmonary edema and/or pneumonitis. 2. Mild bibasilar atelectasis and/or airspace disease, with possible small effusions. 3. Small pericardial effusion not excluded. Labs Labs: Laboratory Results - last 24 hr 07/19/25 03:18 WBC 4.1 L RBC 3.60 L Hgb 11.7 L Hct 37.1 L MCV 103.1 H MCH 32.5 MCHC 31.5 L RDW 15.5 H Plt Count 141 L MPV 9.2 Immature Gran % (Auto) 0.2 Neut % (Auto) 59.7 Lymph % (Auto) 26.2 [place] % (Auto) 11.9 H Eos % (Auto) 1.5 Baso % (Auto) 0.5 Lymph # (Auto) 1.08 [place] # (Auto) 0.5 Eos # (Auto) 0.1 Baso # (Auto) 0.0 Abs Immat Gran (auto) 0.01 Absolute Neuts (auto) 2.5 Absolute Nucleated RBC 0.000 Nucleated RBC % 0.0 Sodium 136 L Potassium 3.4 Chloride 104 Carbon Dioxide 24 Anion Gap 8 BUN 18 Creatinine 0.95 Estim Creat Clear Calc 61 Estimated GFR > 60 Glucose 83 Calcium 8.0 L Magnesium 2.1 Total Bilirubin 0.9 AST 25 ALT 15 Alkaline Phosphatase 80 Total Protein 7.3 Albumin 3.2 L
[2025-07-19] MEDS: APIXABAN 5 MG TABLET PO ×2 (09:14→20:48)
[2025-07-19] MEDS: ATORVASTATIN 40 MG TABLET PO (09:14)
[2025-07-19] MEDS: POTASSIUM CITRATE 5 MEQ TAB CR 10 MEQ PO ×2 (09:14→16:30)
[2025-07-19] MEDS: ALPRAZolam (*CRX) 0.5 MG TABLET PO ×2 (09:15→16:31)
[2025-07-19] MEDS: CYANOCOBALAMIN 1,000 MCG TABLET 1000 MCG PO (09:15)
[2025-07-19] MEDS: FUROSEMIDE INJ 40 MG/4 ML VIAL IV PUSH (09:15)
[2025-07-19] MEDS: ASPIRIN 81 MG ENTERIC TABLET PO (09:15)
[2025-07-19] MEDS: POTASSIUM CHLORIDE 20 MEQ ER TABLET 40 MEQ PO (09:15)
[2025-07-19] MEDS: AMIODARONE HCL 200 MG TABLET PO (09:18)
[2025-07-19] MEDS: METOPROLOL TARTRATE 25 MG TABLET PO ×3 (09:20→20:48)
--- NOTE | 2025-07-19 10:07 | P.PNCA_ITS ---
Progress Note: A&P Assessment and Plan (1) Systolic heart failure: Code(s): I50.20 - Unspecified systolic (congestive) heart failure Status: Acute (2) Coronary artery disease: Code(s): I25.10 - Atherosclerotic heart disease of [place] coronary artery without angina pectoris Status: Acute (3) Atrial fibrillation with RVR: Code(s): I48.91 - Unspecified atrial fibrillation Status: Acute Plan 74-year-old man with coronary artery disease status post PCI to LAD in 2019, ACOS on symbicort, and LEONCIO on BiPAP presented with shortness of breath found to have atrial fibrillation with rapid ventricular rates and new onset systolic heart failure New onset systolic heart failure -likely driven by atrial fibrillation with rapid ventricular rates -blood pressure unable to tolerate Entresto and would start losartan 25 mg p.o. daily -eventually consolidate metoprolol to succinate -concept of LifeVest described patient who agreed to proceed forward Paroxysmal atrial fibrillation -ELVI cardioversion was performed and was successful however patient quickly reverted back to paroxysmal atrial fibrillation with rapid ventricular rates -he was loaded with IV amiodarone and we will continue amiodarone 400 mg p.o. b.i.d. -all given the size is left atrium, we would recommend no further cardioversions and that he should be referred in outpatient setting for EP ablation -continue Eliquis 5 mg p.o. b.i.d. -will likely consolidate his metoprolol -when he is in sinus, he had does have sinus bradycardia CAD status post PCI -continue aspirin 81 mg p.o. daily and atorvastatin 40 mg every evening We had a long discussion with the patient given that he would like to be discharged today. We discussed that while rhythm control will be the optimal strategy for him given his new onset systolic heart failure admission, EP ablation is an outpatient procedure that he should pursue. We also discussed that while his rates are not well controlled and his medications are not fully optimized, he should remain for another day. He would like to be discharged and there is no further adjustments to his medication regardless of what his ventricular rates are and and accordance with his wishes, after discussion of benefits and risks we will finalize his medications and plan for discharge tomorrow. He will follow up with Dr. Gómez on 07/24 Subjective Date/time seen: 07/19/25 10:07 Interval history: He feels well today without any chest pain or shortness of breath. Denies any palpitations Review of Systems Cardiovascular: Cardiovascular: Reports as per HPI Respiratory: Respiratory: Reports as per HPI Exam Const: General: comfortable HENMT: Mouth: Yes moist mucous membranes Eyes: EOM: EOMs intact bilaterally Neck: Neck: no JVD Resp: Effort & Inspection: normal respiratory effort Auscultation: diminished lung sounds Cardio: Rate: tachycardic Rhythm: abnormal rhythm Extrem: General: no pedal edema Objective Data Vital Signs Vital Signs: Vital Signs - 24 hr 07/18/25 12:00 07/18/25 12:00 07/18/25 12:00 Temperature 36.6 C Pulse Rate 116 H 122 H Respiratory Rate 20 Blood Pressure 124/86 Pulse Oximetry 98 Oxygen Delivery Room Air 07/18/25 12:36 07/18/25 14:00 07/18/25 14:00 Temperature 36.8 C Pulse Rate 116 H 114 H 103 H Respiratory Rate 18 Blood Pressure 117/82 Pulse Oximetry 96 Oxygen Delivery 07/18/25 14:00 07/18/25 16:00 07/18/25 16:00 Temperature 36.8 C Pulse Rate 103 H 110 H Respiratory Rate 20 Blood Pressure 117/82 123/78 Pulse Oximetry 97 Oxygen Delivery Room Air 07/18/25 16:00 07/18/25 16:00 07/18/25 18:00 Temperature Pulse Rate 116 H 116 H 100 Respiratory Rate Blood Pressure 123/78 Pulse Oximetry Oxygen Delivery 07/18/25 18:00 07/18/25 20:00 07/18/25 20:00 Temperature 36.5 C Pulse Rate 100 102 H Respiratory Rate 20 Blood Pressure 105/77 Pulse Oximetry 97 Oxygen Delivery Room Air 07/18/25 20:00 07/18/25 20:00 07/18/25 22:00 Temperature Pulse Rate 102 H 112 H 103 H Respiratory Rate Blood Pressure 105/77 Pulse Oximetry Oxygen Delivery 07/18/25 22:30 07/18/25 23:50 07/18/25 23:56 Temperature 36.6 C Pulse Rate 113 H 108 H 91 Respiratory Rate 20 Blood Pressure 104/76 98/75 L 98/75 L Pulse Oximetry 96 Oxygen Delivery 07/18/25 23:56 07/19/25 00:00 07/19/25 00:00 Temperature Pulse Rate 91 86 Respiratory Rate Blood Pressure 98/75 L Pulse Oximetry Oxygen Delivery Room Air 07/19/25 02:31 07/19/25 02:40 07/19/25 04:00 Temperature Pulse Rate 97 98 Respiratory Rate Blood Pressure 92/68 L Pulse Oximetry Oxygen Delivery Room Air 07/19/25 04:00 07/19/25 04:00 07/19/25 06:00 Temperature 36.7 C Pulse Rate 111 H 120 H 93 Respiratory Rate 20 Blood Pressure 104/69 Pulse Oximetry 95 Oxygen Delivery 07/19/25 06:00 07/19/25 07:58 07/19/25 08:00 Temperature 36.9 C Pulse Rate 117 H 129 H Respiratory Rate 20 18 Blood Pressure 107/64 102/75 Pulse Oximetry 96 97 Oxygen Delivery Room Air 07/19/25 09:18 07/19/25 09:20 Temperature Pulse Rate 133 H 134 H Respiratory Rate Blood Pressure Pulse Oximetry Oxygen Delivery Intake/Output Intake/Output: Intake & Output 07/16/25 07/17/25 07/18/25 07/19/25 23:59 23:59 23:59 23:59 Intake Total 1700.0 713.0 968.8 835.6 Output Total 1800 346 5808 200 Balance 50.0 -162.0 -481.2 635.6 Meds/Results Medications: Active Medications Generic Name Dose Route Start Last Admin Trade Name Freq PRN Reason Stop Dose Admin Acetaminophen 650 mg 07/16/25 13:28 Acetaminophen 325 Mg Tablet PO Q4H PRN Mild Pain (1-3) or Fever Albuterol 2 puff 07/16/25 15:57 Albuterol Sulfate (*Sp) Aerosol 1 Puff INHALATION QIDRT PRN Shortness Of Breath Alprazolam 0.5 mg 07/16/25 17:00 07/19/25 09:15 Alprazolam (*Crx) 0.5 Mg Tablet PO 0.5 mg BID NEIL Administration Amiodarone HCl 200 mg 07/19/25 09:00 07/19/25 09:18 Amiodarone Hcl 200 Mg Tablet PO 200 mg BID NEIL Administration Apixaban 5 mg 07/16/25 21:00 07/19/25 09:14 Apixaban 5 Mg Tablet PO 5 mg Q12HR NEIL Administration Aspirin 81 mg 07/17/25 09:00 07/19/25 09:15 Aspirin 81 Mg Enteric Tablet PO 81 mg DAILY NEIL Administration Atorvastatin Calcium 40 mg 07/17/25 09:00 07/19/25 09:14 Atorvastatin 40 Mg Tablet PO 40 mg DAILY NEIL Administration Bisacodyl 5 mg 07/16/25 13:28 Bisacodyl 5 Mg Tablet Ec PO DAILY PRN Constipation Cyanocobalamin 1,000 mcg 07/17/25 09:00 07/19/25 09:15 Cyanocobalamin 1,000 Mcg Tablet PO 1,000 mcg QAM NEIL Administration Fluticasone Propionate 1 spray 07/17/25 09:00 07/19/25 09:16 Fluticasone Propionate 0.05% Na Spr 16 Gm Btl (*Bkc) NASAL Not Given DAILY [facility] Furosemide 40 mg 07/16/25 14:30 07/19/25 09:15 Furosemide Inj 40 Mg/4 Ml Vial IV PUSH 40 mg DAILY NEIL Administration Amiodarone HCl/Dextrose 360 mg in 200 mls @ 16.667 mls/hr 07/18/25 12:30 07/19/25 02:40 Nexterone 360 Mg/D5w 200 Ml IV CONT 0.5 mg/min .Q12H NEIL 16.67 mls/hr 0.5 MG/MIN Infusion Losartan Potassium 25 mg 07/19/25 10:10 Losartan Potassium 25 Mg Tablet PO DAILY NEIL Metoprolol Tartrate 25 mg 07/19/25 09:00 07/19/25 09:20 Metoprolol Tartrate 25 Mg Tablet PO 25 mg Q6H NEIL Administration Nitroglycerin 0.4 mg 07/16/25 15:57 Nitroglycerin Sl 0.4 Mg Tablet SUBLINGUAL Q5MIN PRN Chest Pain Ondansetron HCl 4 mg 07/16/25 13:28 Ondansetron Hcl Odt 4 Mg Tablet PO Q6H PRN Nausea And Vomiting Potassium Citrate 10 meq 07/16/25 17:00 07/19/25 09:14 Potassium Citrate 5 Meq Tab Cr PO 10 meq BID NEIL Administration Radiology Results: ITS Impressions Chest X-Ray 07/16/25 12:29 IMPRESSION: 1. Interstitial pulmonary edema and/or pneumonitis. 2. Mild bibasilar atelectasis and/or airspace disease, with possible small effusions. 3. Small pericardial effusion not excluded. Labs Labs: Laboratory Results - last 24 hr 07/19/25 03:18 WBC 4.1 L RBC 3.60 L Hgb 11.7 L Hct 37.1 L MCV 103.1 H MCH 32.5 MCHC 31.5 L RDW 15.5 H Plt Count 141 L MPV 9.2 Immature Gran % (Auto) 0.2 Neut % (Auto) 59.7 Lymph % (Auto) 26.2 [place] % (Auto) 11.9 H Eos % (Auto) 1.5 Baso % (Auto) 0.5 Lymph # (Auto) 1.08 [place] # (Auto) 0.5 Eos # (Auto) 0.1 Baso # (Auto) 0.0 Abs Immat Gran (auto) 0.01 Absolute Neuts (auto) 2.5 Absolute Nucleated RBC 0.000 Nucleated RBC % 0.0 Sodium 136 L Potassium 3.4 Chloride 104 Carbon Dioxide 24 Anion Gap 8 BUN 18 Creatinine 0.95 Estim Creat Clear Calc 61 Estimated GFR > 60 Glucose 83 Calcium 8.0 L Magnesium 2.1 Total Bilirubin 0.9 AST 25 ALT 15 Alkaline Phosphatase 80 Total Protein 7.3 Albumin 3.2 L
[2025-07-19] MEDS: AMIODARONE HCL 200 MG TABLET 400 MG PO (20:47)
--- NOTE | 2025-07-19 20:54 | PC.NURSE ---
Patient removed lifevest. States he is going to return it-it is too hot to wear.
[2025-07-20] VITALS (19 sets, daily range): BP systolic 81–124; BP diastolic 54–100; PULSE 52–132; RESP 12–20; TEMP 36.4–36.8; O2SAT 95–100
[2025-07-20] MEDS: METOPROLOL TARTRATE 25 MG TABLET PO (03:09)
[2025-07-20 04:35] LABS: Hematocrit 38.2 % (42.0-52.0); Hemoglobin 12.1 g/dL (14.0-18.0); Immature Granulocyte Percent A 0.4 % (0-0.5); Lymphocytes Absolute Auto 1.20 K/mm3 (0.9-3.2); Mean Corpuscular HGB Conc 31.7 g/dl (32-36); Mean Corpuscular Hemoglobin 32.6 pg (26-34); Mean Corpuscular Volume 103.0 fl (80-100); Nucleated Red Blood Cells Absolute Auto 0.000 K/mm3 (0.0-0.012); Nucleated Red Blood Cells Perc 0.0 % (0.0-0.2); Platelet Count Result 151 k/mm3 (150-375); Red Blood Count 3.71 M/mm3 (4.6-6.20); White Blood Count 4.6 K/mm3 (4.5-10.0)
[2025-07-20 04:53] LABS: Alanine Aminotransferase 21 U/L (6-50); Albumin Level 3.2 g/dL (3.5-5.1); Alkaline Phosphatase 81 U/L (38-126); Anion Gap 7 mmol/L (4-12); Aspartate Amino Transferase 32 U/L (17-59); Bilirubin,Total 1.0 mg/dL (0.2-1.3); Blood Urea Nitrogen 21 mg/dL (9-20); Calcium 8.3 mg/dL (8.4-10.2); Carbon Dioxide 25 mmol/L (22-30); Chloride 104 mmol/L (98-107); Estimated CRCL calculation 57 ml/min; Estimated Glomerular Filt Rate > 60; Glucose 84 mg/dL (65-110); Magnesium 2.1 mg/dL (1.6-2.3); Sodium 136 mmol/L (137-145); Total Protein 7.4 g/dL (6.3-8.2)
[2025-07-20 05:00] LABS: Potassium 3.7 mmol/L (3.4-5.0)
[2025-07-20] MEDS: ASPIRIN 81 MG ENTERIC TABLET PO (09:00)
[2025-07-20] MEDS: AMIODARONE HCL 200 MG TABLET 400 MG PO (09:44)
[2025-07-20] MEDS: ATORVASTATIN 40 MG TABLET PO (09:44)
[2025-07-20] MEDS: METOPROLOL SUCCINATE EXT REL 100 MG TABCR PO (09:45)
[2025-07-20] MEDS: CYANOCOBALAMIN 1,000 MCG TABLET 1000 MCG PO (09:45)
[2025-07-20] MEDS: ALPRAZolam (*CRX) 0.5 MG TABLET PO (09:45)
[2025-07-20] MEDS: LOSARTAN POTASSIUM 25 MG TABLET PO (09:45)
[2025-07-20] MEDS: APIXABAN 5 MG TABLET PO (09:45)
[2025-07-20] MEDS: POTASSIUM CITRATE 5 MEQ TAB CR 10 MEQ PO (09:46)
--- NOTE | 2025-07-20 10:05 | ECG_ITS ---
Test Date: 2025-07-20 12:43:07 Measurements Intervals [place] Rate: 129 P: 0 [place]: 0 QRS: 11 QRSD: 92 T: -14 QT: 319 QTc: 467 Interpretive Statements ATRIAL FIBRILLATION WITH RAPID VENTRICULAR RESPONSE NONSPECIFIC ST & T-WAVE ABNORMALITY ABNORMAL RHYTHM ECG Compared to ECG 07/18/2025 06:24:29 No significant changes Electronically Signed On 07-20-2025 15:43:56 CDT by Ha Saunders M.D.
--- NOTE | 2025-07-20 10:27 | WPDHPUPDATE1 ---
History and Physical Update Update Date/Time: 07/20/25 10:27 History and Physical has been reviewed, including an updated exam of the patient. There are NO changes in the patient's condition. Risks, benefits, and alternatives have been discussed and questions answered. Patient agrees to proceed with procedure.
--- NOTE | 2025-07-20 10:27 | WPDMODSED ---
Moderate Sedation Note-Pt Data Patient Data Allergies Allergy/AdvReac Type Severity Reaction Status Date / Time ciprofloxacin Allergy Intermediate RASH Verified 07/16/25 11:22 budesonide (From Symbicort) Allergy Hypertensio Verified 07/16/25 11:22 n formoterol (From Symbicort) Allergy Hypertensio Verified 07/16/25 11:22 n Quinazolinones Allergy Rash Verified 07/16/25 11:22 primidone AdvReac Intermediate Confusion Verified 07/16/25 11:22 propranolol (From Inderal [place]) AdvReac Confusion Verified 07/16/25 11:22 Home Medications ?Medication ?Instructions ?Recorded ?Confirmed ?Type nitroglycerin 0.4 mg sublingual 0.4 mg sublingual Q5MIN PRN Chest 09/14/19 07/16/25 Rx tablet (Nitrostat) Pain #25 tabs fluticasone propionate 50 1 spray intranasal DAILY 01/22/21 07/16/25 History mcg/actuation nasal spray,suspension potassium citrate 10 mEq (1,080 2,160 mg PO BID 11/09/23 07/16/25 History mg) tablet,extended release (Urocit-K 10) albuterol sulfate 90 mcg/actuation 2 puff inhalation QID PRN 11/14/24 07/16/25 Rx aerosol inhaler (Ventolin HFA) Shortness Of Breath #8.5 grams atorvastatin 40 mg tablet 40 mg PO DAILY #90 tabs 11/14/24 07/16/25 Rx furosemide 40 mg tablet 40 mg PO QAM #90 tabs 11/14/24 07/16/25 Rx aspirin 81 mg tablet,delayed 81 mg PO DAILY 01/19/25 07/16/25 History release cyanocobalamin (vitamin B-12) 1,000 mcg PO QAM #30 tabs 02/04/25 07/16/25 Rx 1,000 mcg tablet (Vitamin B-12) alprazolam 0.5 mg tablet (Xanax) 0.5 mg PO BID #180 tabs 04/16/25 07/16/25 Rx Current Medications: Active Medications Acetaminophen (Acetaminophen 325 Mg Tablet) 650 mg PO Q4H PRN PRN Reason: Mild Pain (1-3) or Fever Albuterol (Albuterol Sulfate (*Sp) Aerosol 1 Puff) 2 puff INHALATION QIDRT PRN PRN Reason: Shortness Of Breath Alprazolam (Alprazolam (*Crx) 0.5 Mg Tablet) 0.5 mg PO BID [facility] Last Admin: 07/20/25 09:45 Dose: 0.5 mg Amiodarone HCl (Amiodarone Hcl 200 Mg Tablet) 400 mg PO Q12HR [facility] Last Admin: 07/20/25 09:44 Dose: 400 mg Apixaban (Apixaban 5 Mg Tablet) 5 mg PO Q12HR [facility] Last Admin: 07/20/25 09:45 Dose: 5 mg Aspirin (Aspirin 81 Mg Enteric Tablet) 81 mg PO DAILY [facility] Last Admin: 07/19/25 09:15 Dose: 81 mg Atorvastatin Calcium (Atorvastatin 40 Mg Tablet) 40 mg PO DAILY [facility] Last Admin: 07/20/25 09:44 Dose: 40 mg Bisacodyl (Bisacodyl 5 Mg Tablet Ec) 5 mg PO DAILY PRN PRN Reason: Constipation Cyanocobalamin (Cyanocobalamin 1,000 Mcg Tablet) 1,000 mcg PO QAM [facility] Last Admin: 07/20/25 09:45 Dose: 1,000 mcg Fluticasone Propionate (Fluticasone Propionate 0.05% Na Spr 16 Gm Btl (*Bkc)) 1 spray NASAL DAILY [facility] Last Admin: 07/19/25 09:16 Dose: Not Given Losartan Potassium (Losartan Potassium 25 Mg Tablet) 25 mg PO DAILY [facility] Last Admin: 07/20/25 09:45 Dose: 25 mg Metoprolol Succinate (Metoprolol Succinate Ext Rel 100 Mg Tabcr) 100 mg PO QAM [facility] Last Admin: 07/20/25 09:45 Dose: 100 mg Nitroglycerin (Nitroglycerin Sl 0.4 Mg Tablet) 0.4 mg SUBLINGUAL Q5MIN PRN PRN Reason: Chest Pain Ondansetron HCl (Ondansetron Hcl Odt 4 Mg Tablet) 4 mg PO Q6H PRN PRN Reason: Nausea And Vomiting Potassium Citrate (Potassium Citrate 5 Meq Tab Cr) 10 meq PO BID [facility] Last Admin: 07/20/25 09:46 Dose: 10 meq Sedation/Anesthesia: No previous sedation/anesthesia problems (including family history). [facility] Past Medical History Medical History Essential tremor Myocardial infarction 2019 Mitral valve prolapse Lumbar stenosis with neurogenic claudication Lumbar spondylosis Kidney stones, calcium oxalate Normal colonoscopy 2016 Injury of right hand 2006, severe injury H/O renal calculi with removal 2012 Coronary artery disease Hypertension Pulmonary hypertension Rhinitis Unspecified asthma Central sleep apnea Bipap Surgical History Surgical History History of lumbar spinal fusion (01/2025) S/P appy 1961 Stented coronary artery proximal LAD Sep 14, 2019 S/P left knee arthroscopy 2009 H/O left inguinal hernia repair 2011 Family History Family History Mother , age 87, good health No problems noted. Grandparent Acute myocardial infarction Heart disease Grandparent Acute myocardial infarction Heart disease Other Asthma Social History Social History Social History: Lives with . Ex-smoker. No alcohol. Code status - full Surrogate decision maker - Smoking packs per day: 1 Smoking cigarettes per day: 20.0 Years smoked: 20 Smoking pack-years: 20.00 Smoking status: Former smoker Second hand tobacco smoke exposure: No Alcohol intake: never Substance use: never Substance use type: does not use Do You Feel Safe in your Home?: Yes Lack of Transportation: No Lack of Food: Never True Current Housing: I Have Housing Concerned About Future Housing: No Difficulty Paying Gas/Electric Bills: No Difficulty Paying for Meds: No Currently Unemployed: No Education: Trade/Vocational Certificate Difficulty w/ Childcare or Family Care: No Living arrangements: with family Additional living arrangements comments: Occupation/Education: retired Gender identity (if verbalized by the patient): Male Spiritual care concerns: No Agree to blood products: Yes Mod Sed Physical Exam Physical Exam Pre Procedural Exam: Normal: Lungs and Variation: Heart Rate (tachycardic) and Heart Rhythm (afib) Hours since solid foods: 4 Hours since liquid intake: 4 Mallampati Classification: class II Internal Medicine - PN: Obj Da Vital Signs Vital Signs: Vital Signs - 24 hr 07/19/25 11:32 07/19/25 12:00 07/19/25 12:00 Temperature 36.5 C Pulse Rate 126 H 126 H Respiratory Rate 20 Blood Pressure 92/63 L Pulse Oximetry 96 Oxygen Delivery Room Air 07/19/25 14:00 07/19/25 16:00 07/19/25 16:00 Temperature Pulse Rate 117 H 123 H Respiratory Rate Blood Pressure Pulse Oximetry Oxygen Delivery Room Air 07/19/25 16:03 07/19/25 16:31 07/19/25 18:00 Temperature 36.3 C L Pulse Rate 120 H 117 H 119 H Respiratory Rate 20 Blood Pressure 106/77 Pulse Oximetry 98 Oxygen Delivery 07/19/25 20:00 07/19/25 20:00 07/19/25 20:47 Temperature 36.9 C Pulse Rate 133 H 141 H 136 H Respiratory Rate 17 Blood Pressure 119/73 Pulse Oximetry 99 Oxygen Delivery 07/19/25 20:48 07/19/25 22:00 07/19/25 23:14 Temperature 36.8 C Pulse Rate 136 H 119 H 117 H Respiratory Rate 17 Blood Pressure 99/67 L Pulse Oximetry 97 Oxygen Delivery 07/20/25 00:00 07/20/25 02:00 07/20/25 03:09 Temperature Pulse Rate 132 H 107 H 126 H Respiratory Rate Blood Pressure Pulse Oximetry Oxygen Delivery 07/20/25 03:15 07/20/25 04:00 07/20/25 06:00 Temperature 36.4 C Pulse Rate 127 H 101 H 114 H Respiratory Rate 20 Blood Pressure 99/67 L Pulse Oximetry 98 Oxygen Delivery 07/20/25 08:22 07/20/25 09:44 07/20/25 09:45 Temperature 36.8 C Pulse Rate 120 H 124 H 124 H Respiratory Rate 20 Blood Pressure 124/88 Pulse Oximetry 95 Oxygen Delivery Intake/Output Intake/Output: Intake & Output 07/17/25 07/18/25 07/19/25 07/20/25 23:59 23:59 23:59 23:59 Intake Total 713.0 968.8 1887.8 240 Output Total 875 1450 200 Balance -162.0 -481.2 1687.8 240 Meds/Results Medications: Active Medications Generic Name Dose Route Start Last Admin Trade Name Freq PRN Reason Stop Dose Admin Acetaminophen 650 mg 07/16/25 13:28 Acetaminophen 325 Mg Tablet PO Q4H PRN Mild Pain (1-3) or Fever Albuterol 2 puff 07/16/25 15:57 Albuterol Sulfate (*Sp) Aerosol 1 Puff INHALATION QIDRT PRN Shortness Of Breath Alprazolam 0.5 mg 07/16/25 17:00 07/20/25 09:45 Alprazolam (*Crx) 0.5 Mg Tablet PO 0.5 mg BID NEIL Administration Amiodarone HCl 400 mg 07/19/25 21:00 07/20/25 09:44 Amiodarone Hcl 200 Mg Tablet PO 400 mg Q12HR NEIL Administration Apixaban 5 mg 07/16/25 21:00 07/20/25 09:45 Apixaban 5 Mg Tablet PO 5 mg Q12HR NEIL Administration Aspirin 81 mg 07/17/25 09:00 07/19/25 09:15 Aspirin 81 Mg Enteric Tablet PO 81 mg DAILY NEIL Administration Atorvastatin Calcium 40 mg 07/17/25 09:00 07/20/25 09:44 Atorvastatin 40 Mg Tablet PO 40 mg DAILY NEIL Administration Bisacodyl 5 mg 07/16/25 13:28 Bisacodyl 5 Mg Tablet Ec PO DAILY PRN Constipation Cyanocobalamin 1,000 mcg 07/17/25 09:00 07/20/25 09:45 Cyanocobalamin 1,000 Mcg Tablet PO 1,000 mcg QAM [facility] Administration Fluticasone Propionate 1 spray 07/17/25 09:00 07/19/25 09:16 Fluticasone Propionate 0.05% Na Spr 16 Gm Btl (*Bkc) NASAL Not Given DAILY [facility] Losartan Potassium 25 mg 07/19/25 10:10 07/20/25 09:45 Losartan Potassium 25 Mg Tablet PO 25 mg DAILY NEIL Administration Metoprolol Succinate 100 mg 07/20/25 09:00 07/20/25 09:45 Metoprolol Succinate Ext Rel 100 Mg Tabcr PO 100 mg QAM [facility] Administration Nitroglycerin 0.4 mg 07/16/25 15:57 Nitroglycerin Sl 0.4 Mg Tablet SUBLINGUAL Q5MIN PRN Chest Pain Ondansetron HCl 4 mg 07/16/25 13:28 Ondansetron Hcl Odt 4 Mg Tablet PO Q6H PRN Nausea And Vomiting Potassium Citrate 10 meq 07/16/25 17:00 07/20/25 09:46 Potassium Citrate 5 Meq Tab Cr PO 10 meq BID ENIL Administration Radiology Results: ITS Impressions Chest X-Ray 07/16/25 12:29 IMPRESSION: 1. Interstitial pulmonary edema and/or pneumonitis. 2. Mild bibasilar atelectasis and/or airspace disease, with possible small effusions. 3. Small pericardial effusion not excluded. Labs 07/20/25 03:44 07/20/25 03:44 Labs: Laboratory Results - last 24 hr 07/20/25 03:44 WBC 4.6 RBC 3.71 L Hgb 12.1 L Hct 38.2 L MCV 103.0 H MCH 32.6 MCHC 31.7 L RDW 15.4 H Plt Count 151 MPV 9.4 Immature Gran % (Auto) 0.4 Neut % (Auto) 58.7 Lymph % (Auto) 26.0 [place] % (Auto) 12.1 H Eos % (Auto) 1.7 Baso % (Auto) 1.1 Lymph # (Auto) 1.20 [place] # (Auto) 0.6 Eos # (Auto) 0.1 Baso # (Auto) 0.1 Abs Immat Gran (auto) 0.02 Absolute Neuts (auto) 2.7 Absolute Nucleated RBC 0.000 Nucleated RBC % 0.0 Sodium 136 L Potassium 3.7 Chloride 104 Carbon Dioxide 25 Anion Gap 7 BUN 21 H Creatinine 1.03 Estim Creat Clear Calc 57 Estimated GFR > 60 Glucose 84 Calcium 8.3 L Magnesium 2.1 Total Bilirubin 1.0 AST 32 ALT 21 Alkaline Phosphatase 81 Total Protein 7.4 Albumin 3.2 L ASA Classification/Sedation ASA Classification/Sedation ASA Class: III Emergent: No Risks: Risks, benefits and alternatives explained and patient/family accepted plan for sedation. Patient re-evaluated immediately prior to sedation.
[2025-07-20] MEDS: MIDAZOLAM HCL (*CRX) 2 MG/2 ML VIAL IV PUSH (10:30)
[2025-07-20] MEDS: PROPOFOL IV EMULSION 200 MG/20 ML VIAL 50 MG IV PUSH (10:30)
[2025-07-20] MEDS: fentaNYL CITRATE INJ (*CRX) 100 MCG/2 ML VIAL IV PUSH (10:30)
--- NOTE | 2025-07-20 10:45 | ECG_ITS ---
Test Date: 2025-07-20 13:02:27 Measurements Intervals [place] Rate: 48 P: 82 [place]: 134 QRS: 8 QRSD: 95 T: 16 QT: 463 QTc: 417 Interpretive Statements SINUS BRADYCARDIA WITH OCCASIONAL SUPRAVENTRICULAR PREMATURE COMPLEXES NONSPECIFIC ST- T WAVE CHANGES Compared to ECG 07/20/2025 12:43:07 Atrial fibrillation no longer present Electronically Signed On 07-20-2025 15:44:59 CDT by Ha Saunders M.D.
--- NOTE | 2025-07-20 11:05 | WPDCARDVER ---
Cardioversion Cardioversion Date of procedure: 07/20/25 Procedure: Synchronized cardioversion Pre-op diagnosis: Paroxysmal atrial fibrillation Post-op diagnosis: Same Indications: Paroxysmal atrial fibrillation with rapid ventricular rates Description of procedure: Start Time: 1031 End Time: 1036 360 joules delivered with yazdanism of sinus rhythm Sedation: Versed 2mg IV Fentanyl 100mcg IV Propofol 50mg Findings: Successful synchronized cardioversion Conclusion: Stop metoprolol Continue amiodarone 400mg PO BID Can be discharged to follow up with Dr. Gómez on 07/24
--- NOTE | 2025-07-20 11:09 | P.PNCA_ITS ---
Progress Note: A&P Assessment and Plan (1) Systolic heart failure: Code(s): I50.20 - Unspecified systolic (congestive) heart failure Status: Acute (2) Coronary artery disease: Code(s): I25.10 - Atherosclerotic heart disease of [place] coronary artery without angina pectoris Status: Acute (3) Atrial fibrillation with RVR: Code(s): I48.91 - Unspecified atrial fibrillation Status: Acute Plan 74-year-old man with coronary artery disease status post PCI to LAD in 2019, ACOS on symbicort, and LEONCIO on BiPAP presented with shortness of breath found to have atrial fibrillation with rapid ventricular rates and new onset systolic heart failure New onset systolic heart failure -likely driven by atrial fibrillation with rapid ventricular rates -continue losartan 25 mg p.o. daily and unable to up titrate given low blood pressures -will hold on beta blockade given his low resting heart rate when he is in sinus rhythm -life vest prescribed -will benefit from outpatient AFib ablation Paroxysmal atrial fibrillation -status post amiodarone IV load and ELVI guided cardioversion -patient had to come back for a 2nd cardioversion after further amiodarone loading given that his rates continue to be difficult to control -the his rates are better control, would continue amiodarone 400 mg p.o. b.i.d. -not on AV elaine blockade given low resting heart rate when he is in sinus -continue Eliquis 5 mg p.o. b.i.d. -would benefit from outpatient AFib ablation CAD status post PCI -continue aspirin 81 mg p.o. daily and atorvastatin 40 mg every evening Patient can be discharged today to follow up with Dr. Gómez on 07/24 Subjective Date/time seen: 07/20/25 11:09 Interval history: Feels well today without any chest pain or shortness of breath. No lightheadedness or presyncopal symptoms. Review of Systems Cardiovascular: Cardiovascular: Reports as per HPI Respiratory: Respiratory: Reports as per HPI Exam Const: General: comfortable HENMT: Mouth: Yes moist mucous membranes Eyes: EOM: EOMs intact bilaterally Neck: Neck: no JVD Resp: Effort & Inspection: normal respiratory effort Auscultation: clear to auscultation bilaterally Cardio: Rate: tachycardic Rhythm: abnormal rhythm Extrem: General: no pedal edema Objective Data Vital Signs Vital Signs: Vital Signs - 24 hr 07/19/25 11:32 07/19/25 12:00 07/19/25 12:00 Temperature 36.5 C Pulse Rate 126 H 126 H Respiratory Rate 20 Blood Pressure 92/63 L Pulse Oximetry 96 Oxygen Delivery Room Air Oxygen Flow Rate 07/19/25 14:00 07/19/25 16:00 07/19/25 16:00 Temperature Pulse Rate 117 H 123 H Respiratory Rate Blood Pressure Pulse Oximetry Oxygen Delivery Room Air Oxygen Flow Rate 07/19/25 16:03 07/19/25 16:31 07/19/25 18:00 Temperature 36.3 C L Pulse Rate 120 H 117 H 119 H Respiratory Rate 20 Blood Pressure 106/77 Pulse Oximetry 98 Oxygen Delivery Oxygen Flow Rate 07/19/25 20:00 07/19/25 20:00 07/19/25 20:47 Temperature 36.9 C Pulse Rate 133 H 141 H 136 H Respiratory Rate 17 Blood Pressure 119/73 Pulse Oximetry 99 Oxygen Delivery Oxygen Flow Rate 07/19/25 20:48 07/19/25 22:00 07/19/25 23:14 Temperature 36.8 C Pulse Rate 136 H 119 H 117 H Respiratory Rate 17 Blood Pressure 99/67 L Pulse Oximetry 97 Oxygen Delivery Oxygen Flow Rate 07/20/25 00:00 07/20/25 02:00 07/20/25 03:09 Temperature Pulse Rate 132 H 107 H 126 H Respiratory Rate Blood Pressure Pulse Oximetry Oxygen Delivery Oxygen Flow Rate 07/20/25 03:15 07/20/25 04:00 07/20/25 06:00 Temperature 36.4 C Pulse Rate 127 H 101 H 114 H Respiratory Rate 20 Blood Pressure 99/67 L Pulse Oximetry 98 Oxygen Delivery Oxygen Flow Rate 07/20/25 08:22 07/20/25 09:44 07/20/25 09:45 Temperature 36.8 C Pulse Rate 120 H 124 H 124 H Respiratory Rate 20 Blood Pressure 124/88 Pulse Oximetry 95 Oxygen Delivery Oxygen Flow Rate 07/20/25 10:30 07/20/25 10:35 07/20/25 10:45 Temperature Pulse Rate 132 H 116 H 52 L Respiratory Rate 20 15 12 Blood Pressure 121/100 H 99/78 L 81/54 L Pulse Oximetry 100 100 99 Oxygen Delivery Nasal Cannula Nasal Cannula Nasal Cannula Oxygen Flow Rate 2 2 2 07/20/25 11:00 Temperature Pulse Rate 63 Respiratory Rate 18 Blood Pressure 100/66 Pulse Oximetry 100 Oxygen Delivery Nasal Cannula Oxygen Flow Rate 2 Intake/Output Intake/Output: Intake & Output 07/17/25 07/18/25 07/19/25 07/20/25 23:59 23:59 23:59 23:59 Intake Total 713.0 968.8 1887.8 240 Output Total 875 1450 200 Balance -162.0 -481.2 1687.8 240 Meds/Results Medications: Active Medications Generic Name Dose Route Start Last Admin Trade Name Freq PRN Reason Stop Dose Admin Acetaminophen 650 mg 07/16/25 13:28 Acetaminophen 325 Mg Tablet PO Q4H PRN Mild Pain (1-3) or Fever Albuterol 2 puff 07/16/25 15:57 Albuterol Sulfate (*Sp) Aerosol 1 Puff INHALATION QIDRT PRN Shortness Of Breath Alprazolam 0.5 mg 07/16/25 17:00 07/20/25 09:45 Alprazolam (*Crx) 0.5 Mg Tablet PO 0.5 mg BID NEIL Administration Amiodarone HCl 400 mg 07/19/25 21:00 07/20/25 09:44 Amiodarone Hcl 200 Mg Tablet PO 400 mg Q12HR NEIL Administration Apixaban 5 mg 07/16/25 21:00 07/20/25 09:45 Apixaban 5 Mg Tablet PO 5 mg Q12HR NEIL Administration Aspirin 81 mg 07/17/25 09:00 07/19/25 09:15 Aspirin 81 Mg Enteric Tablet PO 81 mg DAILY NEIL Administration Atorvastatin Calcium 40 mg 07/17/25 09:00 07/20/25 09:44 Atorvastatin 40 Mg Tablet PO 40 mg DAILY NEIL Administration Bisacodyl 5 mg 07/16/25 13:28 Bisacodyl 5 Mg Tablet Ec PO DAILY PRN Constipation Cyanocobalamin 1,000 mcg 07/17/25 09:00 07/20/25 09:45 Cyanocobalamin 1,000 Mcg Tablet PO 1,000 mcg QAM NEIL Administration Fluticasone Propionate 1 spray 07/17/25 09:00 07/19/25 09:16 Fluticasone Propionate 0.05% Na Spr 16 Gm Btl (*Bkc) NASAL Not Given DAILY NEIL Losartan Potassium 25 mg 07/19/25 10:10 07/20/25 09:45 Losartan Potassium 25 Mg Tablet PO 25 mg DAILY NEIL Administration Nitroglycerin 0.4 mg 07/16/25 15:57 Nitroglycerin Sl 0.4 Mg Tablet SUBLINGUAL Q5MIN PRN Chest Pain Ondansetron HCl 4 mg 07/16/25 13:28 Ondansetron Hcl Odt 4 Mg Tablet PO Q6H PRN Nausea And Vomiting Potassium Citrate 10 meq 07/16/25 17:00 07/20/25 09:46 Potassium Citrate 5 Meq Tab Cr PO 10 meq BID NEIL Administration Radiology Results: ITS Impressions Chest X-Ray 07/16/25 12:29 IMPRESSION: 1. Interstitial pulmonary edema and/or pneumonitis. 2. Mild bibasilar atelectasis and/or airspace disease, with possible small effusions. 3. Small pericardial effusion not excluded. Labs Labs: Laboratory Results - last 24 hr 07/20/25 03:44 WBC 4.6 RBC 3.71 L Hgb 12.1 L Hct 38.2 L MCV 103.0 H MCH 32.6 MCHC 31.7 L RDW 15.4 H Plt Count 151 MPV 9.4 Immature Gran % (Auto) 0.4 Neut % (Auto) 58.7 Lymph % (Auto) 26.0 [place] % (Auto) 12.1 H Eos % (Auto) 1.7 Baso % (Auto) 1.1 Lymph # (Auto) 1.20 [place] # (Auto) 0.6 Eos # (Auto) 0.1 Baso # (Auto) 0.1 Abs Immat Gran (auto) 0.02 Absolute Neuts (auto) 2.7 Absolute Nucleated RBC 0.000 Nucleated RBC % 0.0 Sodium 136 L Potassium 3.7 Chloride 104 Carbon Dioxide 25 Anion Gap 7 BUN 21 H Creatinine 1.03 Estim Creat Clear Calc 57 Estimated GFR > 60 Glucose 84 Calcium 8.3 L Magnesium 2.1 Total Bilirubin 1.0 AST 32 ALT 21 Alkaline Phosphatase 81 Total Protein 7.4 Albumin 3.2 L
--- NOTE | 2025-07-20 14:05 | P.DS_ITS ---
DS: Admitting Diagnosis Discharge Date 07/20/2025 Admitting Diagnosis Atrial fib with RVR DS: Discharge Diagnosis Discharge Diagnosis (1) Atrial fibrillation with RVR: Code(s): I48.91 - Unspecified atrial fibrillation Status: Acute (2) Shortness of breath: Code(s): R06.02 - Shortness of breath Status: Acute (3) Chest pain: Qualifiers: Chest pain type: unspecified Qualified Code(s): R07.9 - Chest pain, unspecified Code(s): R07.9 - Chest pain, unspecified Status: Acute (4) Unspecified asthma: Qualifiers: Asthma severity: unspecified severity Asthma persistence: unspecified Asthma complication type: unspecified Qualified Code(s): J45.909 - Unspecified asthma, uncomplicated Code(s): J45.909 - Unspecified asthma, uncomplicated Status: Chronic (5) Hypertension: Qualifiers: Hypertension type: primary hypertension Qualified Code(s): I10 - Essential (primary) hypertension Code(s): I10 - Essential (primary) hypertension Status: Chronic (6) Central sleep apnea: Code(s): G47.31 - Primary central sleep apnea Status: Chronic Plan This is a 73-year-old male who presented to the ED with chest pain and shortness of breath over the past few days. Chest pain started approximately 9:00 a.m. 07/16/2025. He has a history of coronary artery disease status post stent x1 in 2019. Upon arrival to the ED he was noted to be tachycardic in 160s. Blood pressure was adequate. EKG showed AFib with RVR. He received 5 mg of IV low pressure followed by 2 boluses 10 mg IV Cardizem and was started on Cardizem drip. Heart rate improved somewhat to 130s with stable blood pressure. Laboratory workup revealed WBC of 6.4 hemoglobin 11.8 platelet count 141. Chem panel showed sodium of 135 potassium 4.3 chloride 102 bicarbonate 25 BUN 11 creatinine 1 blood glucose of home 103. Troponin was negative less than 0.012 BNP was elevated at 2270. LFTs were normal. Urinalysis showed 11-20 urine WBC with positive leukocyte esterase. Serial troponin remained negative Chest x-ray showed interstitial pulmonary edema and/or pneumonitis mild bibasilar atelectasis and/or airspace disease with possible small effusions small pericardial effusion not excluded. D-dimer was negative. Patient was started on Eliquis for anticoagulation. Cardiology was consulted and is planned for ELVI cardioversion. He underwent ELVI cardioversion on 07/17/2025 with subsequent conversion to sinus rhythm. During hospital stay he Also received a dose of digoxin 250 mcg x1. However he flipped back to AFib rhythm at 6:30 a.m.. Started on amiodarone drip. Await Cardiology recommendations. Also on metoprolol which was added 07/17/2025 New onset congestive heart failure likely secondary to AFib with RVR. Started on IV Lasix. Recent echocardiogram 2021 normal LV size hyperdynamic LV function EF measured at 73% severe enlargement of left atrium trace to mild valvular disease. Repeat echo 07/16/2025 with EF 20-25% severe biatrial enlargement. Large size left pleural effusion. Medications per Cardiology. He has been started on Entresto and Toprol. LifeVest has been discussed with the patient. And spironolactone and Jardiance down the line Mild hypoxic respiratory failure requiring oxygen supplementation via nasal cannula continue with IV Lasix. Now off oxygen. History of asthma with no signs of exacerbation continue home medication Hypertension home medication Lumbar stenosis with neurogenic claudication, history of lumbar fusion 01/2025 History of kidney stones Coronary artery disease status post stent 2019 proximal LAD Sleep apnea on CPAP DVT prophylaxis on Eliquis Code status full code DS: Summary Hospital Course Reason for hospitalization: Atrial fib with RVR Hospital Course: 74 years old male was admitted with complaint of palpitation. Patient was found to be due to food patient with RVR. Patient was successfully converted into regular rhythm. Today patient feeling better, discharged home stable condition follow-up scheduled. Status at Discharge Cognitive/behavioral status at discharge: Stable Time Spent with Patient Time attestation: Total time spent providing and/or coordinating discharge services: 30 minutes Exam Narrative: APPEARANCE: Alert and oriented x3, no acute distress HEAD: normocephalic, atraumatic. EYES: PERRLA/EOMI, conjunctivae clear. NECK: Supple. No adenopathy, no masses. RESPIRATORY: Airway patent, respirations nonlabored. Clear to auscultation bilaterally, no rales, rhonchi, wheezing. CARDIOVASCULAR: AFib with RVR on telemetry, ABDOMINAL: Soft, nontender, nondistended, normal bowel sounds MUSCULOSKELETAL: Moves all extremities. Strength/ROM intact, No edema, No calf tenderness. NEURO: Alert. Cranial nerves II through XII intact. Good gait. Good coordination SKIN: Warm, dry. Normal Color Const: General: comfortable and no acute distress Other: , male, nontoxic appearance HENMT: Face/Nose/Sinus: Normal nares present Mouth: Yes moist mucous membranes Eyes: General: appearance normal, both eyes and all related structures Sclera: sclerae normal Pupils: Equal, round and reactive pupils present EOM: EOMs intact bilaterally Resp: Effort & Inspection: normal respiratory effort Auscultation: clear to auscultation bilaterally Cardio: Rate: tachycardic (Consistent with AFib RVR) Rhythm: abnormal rhythm Other: No appreciable murmur GI: Other: Abdomen soft, nondistended, nontender. Normoactive bowel sounds in all quadrants. Skin: General skin exam: normal color and no rashes or lesions noted Wounds: no wounds Neuro: Cranial nerves: Yes Equal, round and reactive pupils present Speech: normal speech Motor exam (neuro): 5/5 motor strength present throughout Sensory Exam: normal sensation Other: A&O x4 Extrem: Other: No peripheral edema, mild swelling to left knee with brace in place. Psych: Mental Status: mental status grossly normal Affect: normal affect Other: Good insight and judgment, very pleasant DS: Data Data Completed and Pending Labs on day of discharge: Labs from last 24 hours 07/20/25 03:44 WBC 4.6 RBC 3.71 L Hgb 12.1 L Hct 38.2 L MCV 103.0 H MCH 32.6 MCHC 31.7 L RDW 15.4 H Plt Count 151 MPV 9.4 Immature Gran % (Auto) 0.4 Neut % (Auto) 58.7 Lymph % (Auto) 26.0 [place] % (Auto) 12.1 H Eos % (Auto) 1.7 Baso % (Auto) 1.1 Lymph # (Auto) 1.20 [place] # (Auto) 0.6 Eos # (Auto) 0.1 Baso # (Auto) 0.1 Abs Immat Gran (auto) 0.02 Absolute Neuts (auto) 2.7 Absolute Nucleated RBC 0.000 Nucleated RBC % 0.0 Sodium 136 L Potassium 3.7 Chloride 104 Carbon Dioxide 25 Anion Gap 7 BUN 21 H Creatinine 1.03 Estim Creat Clear Calc 57 Estimated GFR > 60 Glucose 84 Calcium 8.3 L Magnesium 2.1 Total Bilirubin 1.0 AST 32 ALT 21 Alkaline Phosphatase 81 Total Protein 7.4 Albumin 3.2 L Discharge Plan Discharge Attending physician on discharge: Dewey Parada Consulting providers: Kandice Morin Discharging Clinician: Dewey Parada Patient Disposition: Home Activity: as tolerated Diet: heart healthy Patient Instructions: Antibiotic Form Patient Language: Citizen Of [place] Stand Alone Forms: General Discharge Information Follow-up/Referrals: Kandice Morin APN-C [Advanced Practice Nurse, Cardiology] Brian Viveros MD [Primary Care Provider, Family Practice] Discharge Medications: New losartan 25 mg Tablet 25 mg PO DAILY Qty: 30 0RF Eliquis 5 mg Tablet 5 mg PO Q12HR Qty: 60 0RF amiodarone [Pacerone] 200 mg Tablet 400 mg PO Q12HR Qty: 60 0RF Continued alprazolam [Xanax] 0.5 mg tablet 0.5 mg PO BID Qty: 180 1RF potassium citrate [Urocit-K 10] 10 mEq (1,080 mg) tablet extended release 2,160 mg PO BID fluticasone propionate 50 mcg/actuation [place],Suspension 1 spray INTRANASAL DAILY aspirin 81 mg tablet,delayed release (DR/EC) 81 mg PO DAILY cyanocobalamin (vitamin B-12) [Vitamin B-12] 1,000 mcg Tablet 1,000 mcg PO QAM Qty: 30 2RF nitroglycerin [Nitrostat] 0.4 mg Tablet, Sublingual 0.4 mg sublingual Q5MIN PRN (Reason: Chest Pain) Qty: 25 3RF albuterol sulfate [Ventolin HFA] 90 mcg/actuation HFA aerosol inhaler 2 puff INHALATION QID PRN (Reason: Shortness Of Breath) Qty: 8.5 4RF atorvastatin 40 mg tablet 40 mg PO DAILY Qty: 90 3RF furosemide 40 mg tablet 40 mg PO QAM Qty: 90 3RF Date of admission: 07/17/25 09:30 Primary Care Provider: Brian Viveros Admitting Provider: Celestina Farrell Attending physician on admission: Celestina Farrell Condition: Serious Quality VTE Prophylaxis VTE prophylaxis: pharmacologic ordered
== END 2025-07-20 15:00 | disposition home or self-care (01) | DRG 309 ==
LOC: ANHED 11:32 → ANHIMU 13:29
PROVIDERS: Internal Medicine; Student in an Organized Health Care Education/Training Program; Admitting Provider Internal Medicine; Emergency Provider Emergency Medicine; PCP Family Medicine Adolescent Medicine; Visit Provider Internal Medicine
PROC: 5A2204Z Restoration of Cardiac Rhythm, Single (ICD-10-PCS; principal; 2025-07-17 13:00)
PROC: 5A2204Z Restoration of Cardiac Rhythm, Single (ICD-10-PCS; CPT 93312; 2025-07-17 13:00)
DX: I48.0 Paroxysmal atrial fibrillation (principal); I50.20 Unspecified systolic (congestive) heart failure; I25.10 Atherosclerotic heart disease of native coronary artery without angina pectoris; I11.0 Hypertensive heart disease with heart failure; I43 Cardiomyopathy in diseases classified elsewhere; E78.00 Pure hypercholesterolemia, unspecified; G47.33 Obstructive sleep apnea (adult) (pediatric); I27.20 Pulmonary hypertension, unspecified; I25.2 Old myocardial infarction; J45.909 Unspecified asthma, uncomplicated; M48.062 Spinal stenosis, lumbar region with neurogenic claudication; M47.816 Spondylosis without myelopathy or radiculopathy, lumbar region; Z95.5 Presence of coronary angioplasty implant and graft; Z87.891 Personal history of nicotine dependence; Z79.82 Long term (current) use of aspirin; Z99.89 Dependence on other enabling machines and devices; Z98.1 Arthrodesis status
CPT/HCPCS: 36415; 71045; 80053; 81001; 83735; 83880; 84443; 84484; 85025; 85380; 85610; 85730; 87086; 87186; 92960; 93005; 93312; 93320; 93325; 96361; 96374; 96375; 96376; 99285; A9270; C8929; G0378; J0282; J0616; J1160; J1163; J1938; J2250; J2704; J3010; J7040; J7120; Q9957